=== PATIENT | female | born 1945 | race Caucasian/White ===

== ENCOUNTER 2024-12-19 11:09 | Outpatient (AMB) | payer OTHER, SELFPAY ==
--- NOTE | 2024-12-19 11:22 | A.OFFPC_ITS ---
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 Intake Note: patient here for new patient visit Millinery Blocker Required: No Is last menstrual period known: No Post menopausal: No Patient : No Allergies No Known Allergies Allergy (Verified 12/19/24 11:45) Medication List - Last Reconciled 12/19/24 by Josue Mckeon CNP aspirin (Adult Low Dose Aspirin) 81 mg PO DAILY azelastine-fluticasone 137-50 mcg/spray intranasal fluocinonide 0.05% appl topical DAILY naproxen sodium (Aleve) 220 mg PO Q12H PRN Tobacco use date assessed: 12/19/24 Fall risk assessment: 1 Fall in past year Last assessed Fall Risk: 12/19/24 Dental Screening Dental Screen Date: 12/19/24 Did you have a dental visit in the last 12 months?: Yes Did you have a dental problem in the last 6 months where you did not have access to dental care?: No Was dental information given to patient?: Patient has dentist HPI HPI Comments History of Present Illness Details 79-year-old female presents to establish care. Prior PCP? - [facility] Last office visit - 06/2024 CPE/labs - A year ago Acute issue(s) - Arthritis both knees. She is on Naprox en 220 mg twice daily as needed - Chronic low back pain: She is on Napro xen 220 mg twice daily as needed. Was followed by Dr. Ochoa, neuro wellness specialist Past Medical History - Arthritis - Eczema - Sinusitis - Astigmatism Surgical History - Carpal tunnel surgery of right wrist - Carpal tunnel surgery of left wrist - Lateral meniscus repair of right knee - Lateral meniscus repair of left knee - section Family History - Dad: Multiple myeloma - Mom: Cardiovascular disease, hypertens ion - MGM: Mental illness, committed suicide - PGF: Alcohol use disorder Social History - Nonsmoker. Does not vape. Does not dri nk alcohol. Denies recreational drug use - Has been making healthy dietary choice s. Exercises routinely. Generally sleep well Health maintenance - Last eye exam was in 06/2024 at [facility]: normal. She will establish with a new driveway attendant for routine eye care - Last dental visit was over 2 weeks ago . She has full upper denture and bottom implants - Last tetanus vaccine was in 10/2019. O ld medical record not available at this time - She is up-to-date on the flu, pneumoni a, and shingle vaccines. Old medical record not available at this time - She has history of normal pap smear te sts. Last pap smear test was in 2017. She no longer performs pap smear tests - Last mammogram was with [facility] in 11/2024: normal. She will sign a release for her PCP to obtain recent mammogram - Last colonoscopy was with Alex Dawson in 07/01/2021: Benign polyps. She will sign a release for her PCP to obtain recent colonoscopy - Last dexa scan was in 2019: normal. De xa scan ordered [facility] Medical History (Updated 12/19/24 @ 12:21 by Josue Mckeon CNP) Eczema Arthritis Sinusitis Surgical History (Updated 12/19/24 @ 11:45 by Umm Castellanos MA) History of carpal tunnel surgery of right wrist History of carpal tunnel surgery of left wrist H/O lateral meniscus repair of right knee H/O lateral meniscus repair of left knee H/O: Family History (Updated 12/19/24 @ 11:33 by Umm Castellanos MA) Paternal Grandfather Alcohol abuse Paternal Grandmother FH: mental illness Mother High blood pressure Cardiovascular disease Family/Other No problems noted. Father Multiple myeloma Sister Cancer Social History Housing: House Patient Tobacco Use Status: Never used Tobacco e-Cigarette/Vaping Use: Never Used Second Hand Smoke Exposure: No service: No Current occupational status: retired Cognitive needs: No Hearing needs: No Vision needs: Yes Questionnaire PHQ-9 Over the last 2 weeks, how often have you been bothered by any of the following problems? 1. Little interest or pleasure in doing things: not at all 2. Feeling down, depressed, or hopeless: not at all 3. Trouble falling or staying asleep, or sleeping too much: not at all 4. Feeling tired or having little energy: not at all 5. Poor appetite or overeating: not at all 6. Feeling bad about yourself - or that you are a failure or have let yourself or your family down: not at all 7. Trouble concentrating on things, such as reading the newspaper or watching television: not at all 8. Moving or speaking so slowly that other people could have noticed. Or the opposite - being so fidgety or restless that you have been moving around a lot more than usual: not at all 9. Thoughts that you would be better off or of hurting yourself in some way: not at all Total score: 0 Depression Screening Interpretation: Negative Depression Screening Done: Yes [id number] - PHQ-9 Billing: Yes Source: Developed by Drs. Bucky Adler, Shu Henderson, Checo Egan and colleagues, with an educational khanh from [employer]. Thrive Questionnaire Date Thrive assessed: 12/19/24 I am a: Patient What is your living situation today?: I have a steady place to live Within the past 12 months, did the food you bought not last and you didn't have the money to get more?: Never true Within the past 12 months, did you worry whether your food would run out before you got money to buy more?: Never true Do you have trouble paying for medicines?: No Do you have trouble getting transportation to medical appointments?: No Do you have trouble paying your heating and electricity bill?: No Do you have trouble taking care of your child, family member or friend?: No Do you have trouble with day-to-day activities such as bathing, preparing meals, shopping, managing finances, etc.?: No Are you currently unemployed and looking for a job?: No Are you interested in more education?: No Please select the resources that you would like help with: None Currently or been in a relationship where the following occur: No concerns reported THRIVE Score: 0 AUDIT C Alcohol Use Questionnaire (AUDIT-C) 1. How often do you have a drink containing alcohol?: Never Total Score: 0 LANDON-7 AMB Questionnaire LANDON-7 Date LANDON - 7 assessed: 12/19/24 Feeling nervous, anxious, or on edge: 0 = Not at all Not being able to stop or control worryin = Not at all Worrying too much about different things: 0 = Not at all Trouble relaxin = Not at all Being so restless that it is hard to sit still: 0 = Not at all Becoming easily annoyed or irritable: 0 = Not at all Feeling afraid as if something awful might happen: 0 = Not at all Total LANDON-7 score (0-4 normal; 5-9 mild; 10-14 moderate; 15-21 severe): 0 Source: Developed by Drs. Bucky Adler, Shu Henderson, Checo Egan and colleagues, with an educational khanh from [employer]. LANDON-7 Assessment Billing LANDON-7 Assessment Tool: LANDON-7 Assessment 62699 Review of Systems Const Details: Denies chills, Denies fatigue, Denies fever(s), Denies headache(s) and Denies weakness HEENT Denies change in vision, Denies dizziness, Denies headache(s), Denies hearing loss, Denies nasal congestion, Denies sinus pain, Denies sinus pressure and Denies sore throat Card Denies chest pain, Denies lightheadedness, Denies dyspnea and Denies other (palpitations) Resp Denies cough, Denies dyspnea and Denies wheezing GI Denies abdominal pain, Denies melena, Denies hematochezia, Denies change in bowel habits, Denies dyspepsia and Denies nausea Denies hematuria and Denies dysuria Musc Reports bilat knee pain and back pain, Denies abnormal gait, Denies numbness and Denies tingling Skin/Breast Denies rash, Denies unusual bruising and Denies wounds Neuro Denies abnormal gait, Denies dizziness, Denies headache(s), Denies memory loss, Denies numbness, Denies Sensory deficit (Neuro), Denies tingling and Denies weakness Psych Denies anxiety, Denies depression and Denies memory loss Endo Denies cold intolerance, Denies fatigue, Denies heat intolerance, Denies polydipsia and Denies polyuria Antonio/Lymph Denies easy bleeding and Denies easy bruising Aller/Immun Denies wheezing Physical exam (Primary Care) Vital Signs: Last Vital Signs Temp 97.7 F 12/19/24 11:35 Pulse 66 12/19/24 11:35 Resp 16 12/19/24 11:35 BP 142/63 H 12/19/24 11:35 Pulse Ox 96 12/19/24 11:35 Oxygen Delivery Method Room Air 12/19/24 11:35 BMI result Body Mass Index 25.5 Tobacco/Smoking Status: Tobacco use Status Tobacco use date assessed 12/19/24 12/19/24 11:34 Patient Tobacco Use Status Never used Tobacco 12/19/24 11:34 e-Cigarette/Vaping Use Never Used 12/19/24 11:34 PHQ-9: PHQ-9 Score PHQ-9: Total score 0 12/19/24 11:34 Depression Screening Interpretation: Negative Thrive Assessment: Date of Thrive Assessment Date Thrive assessed 12/19/24 12/19/24 11:34 Currently or been in a relationship where the following occur: No concerns reported Const Other: General: no acute distress, well developed, alert and awake Nutritional Appearance: well nourished Orientation/consciousness: patient oriented x3 HENMT Head: Yes normocephalic and Yes atraumatic Ears: hearing grossly normal bilaterally and TM's normal bilaterally General nose exam: Normal external nose present and Normal nares present Mouth: Normal oral and palatal mucosa present and moist mucous membranes Teeth and gingiva: dentition normal Throat: Yes oropharynx normal Eyes Pupils: Equal, round and reactive pupils present and Pupil accommodation reflex normal EOM: EOMs intact bilaterally Neck Neck: Yes normal visual inspection, Yes no lymphadenopathy and Yes trachea midline Thyroid: Thyroid normal Carotids: no bruits Lymphatic: no lymphadenopathy noted Chest Chest palpation & inspection: normal inspection of the chest Resp Effort & Inspection: normal respiratory effort Auscultation: clear to auscultation bilaterally Cardio Rate: regular rate Rhythm: regular rhythm Heart sounds: S1 normal heart sound present, S2 normal heart sound present, no gallops, no murmurs and no rubs Bruits: no abdominal aortic bruits and no carotid bruits GI Palpation (GI): No Abdominal aortic bruit present, Soft to palpation, nontender, No hepatosplenomegaly present and No Rebound tenderness present Auscultation: normal bowel sounds General: Yes no CVA tenderness Back/Spine/Pelvis Back: no CVA tenderness Cervical Spine: cervical ROM normal and No Cervical spine tenderness Thoracic/Lumbar Spine: thoraco-lumbar ROM normal, No pain with thoraco-lumbar ROM, No thoracic spinal tenderness and No lumbar spinal tenderness Skin General: warm and dry. Normal skin color. Normal skin turgor Lesions: no lesions Rashes: no rashes Trauma: no lacerations or abrasions Wounds: no wounds Nails: normal Neuro General: patient oriented x3, gait normal and CN's II-XI intact bilaterally Cranial nerves: Yes Equal, round and reactive pupils present Cognition (Neuro): normal cognition Gait exam (Neuro): Normal gait present Motor exam (neuro): 5/5 motor strength present throughout Sensory Exam: No Sensory deficit (Neuro) Deep tendon reflexes (DTR's): Right patellar reflex intensity grade: 2+ and Left patellar reflex intensity grade: 2+ Extrem General: Yes normal to inspection, No edema and No calf tenderness Psych Appearance: grossly normal Affect: normal affect Attitude: cooperative Thought process: Normal thought process present Coding Level of Care Code New Pt Prev Care >65yr (73654) Diagnoses Normal physical examination, routine Z00.00 Arthritis of both knees M17.0 Chronic low back pain M54.50; G89.29 Osteoporosis screening Z13.820 Laboratory tests ordered as part of a complete physical exam (CPE) Z00.00 Additional Codes LANDON-7 Assessment Billing - LADNON-7 Assessment Tool: LANDON-7 Assessment 85410 ([id number]) PHQ-9 - 39413 - PHQ-9 Billing: Yes ([id number]) Assessment & Plan Assessment & Plan (1) Normal physical examination, routine: Code(s): Z00.00 - Encounter for general adult medical examination without abnormal findings Category: Medical Plan: No significant functional limitations noted. Blood pressure is on the high end of normal, 138/60. Low-sodium diet encouraged. Perform lab work at least 2-3 days before next visit. Follow-up in 2-3 weeks for telehealth visit for labs review or sooner with symptoms or concerns. Verbalized understanding and agreed with treatment plan. (2) Arthritis of both knees: Code(s): M17.0 - Bilateral primary osteoarthritis of knee Category: Medical Plan: She is naproxen as needed. Warm/cool compresses encouraged. Follow-up with worsening or new symptoms. Verbalized understanding and agreed with treatment plan. (3) Chronic low back pain: Code(s): M54.50 - Low back pain, unspecified; G89.29 - Other chronic pain Category: Medical Plan: Plan as above. (4) Osteoporosis screening: Code(s): Z13.820 - Encounter for screening for osteoporosis Category: Medical Plan: Last dexa scan was in 2020: normal. Dexa scan ordered. (5) Laboratory tests ordered as part of a complete physical exam (CPE): Code(s): Z00.00 - Encounter for general adult medical examination without abnormal findings Category: Medical Plan: Fasting labs ordered as part of a complete physical exam. Advised to fast for at least 10 hours before getting labs drawn. May drink water Verbalized understanding and agreed with treatment plan. Orders: Orders XR DEXA axial skeleton Today M81.0 - Age-related osteoporosis without current pathological fracture Complete Blood Count Auto Diff Today Z00.00 - Encounter for general adult medical examination without abnormal findings Comprehensive [place]. Panel Fast Today Z00.00 - Encounter for general adult medical examination without abnormal findings Microalbumin, Random (w Creat) Today Z00.00 - Encounter for general adult me dical examination without abnormal findings Vitamin D 25-OH Total Today Z00.00 - Encounter for general adult medical examination without abnormal findings Lipid Panel Today Z00.00 - Encounter for general adult medical examination without abnormal findings TSH reflex Free T4 Today Z00.00 - Encounter for general adult medical examination without abnormal findings UA CC w/rflx Micro + Cult Today Z00.00 - Encounter for general adult medical examination without abnormal findings
[2024-12-19 11:35] VITALS: BP 142/63; PULSE 66; RESP 16; TEMP 36.5; O2SAT 96; BMI 25.5
[2024-12-19 12:08] VITALS: BP 138/60
--- OUTSIDE RECORDS SUMMARY | 2024-12-19 12:56 | XMS_ITS ---
Author Name [facility] Organization Unknown History of Medication Use Medication Directions Dispensed Refills Start Date End Date Stat amoxicillin 875 mg-potassium clavulanate 125 mg tablet TAKE 1 TABLET BY MOUTH TWICE A DAY FOR 7 DAYS 11/13/2024 completed chlorhexidine gluconate 0.12 % mouthwash PLEASE SEE ATTACHED FOR DETAILED DIRECTIONS active ketotifen 0.025 % (0.035 %) eye drops INSTILL 1 DROP INTO AFFECTED EYE TWICE A DAY active lidocaine (PF) 100 mg/5 mL (2 %) injection syringe Take 4 mL by injection route. 11/13/2024 active ofloxacin 0.3 % eye drops INSTILL 1 DROP INTO AFFECTED EYE(S) 4 TIMES A DAY active Marcaine (PF) 0.5 % (5 mg/mL) injection solution Take 4 mL by injection route. 11/13/2024 active triamcinolone acetonide 40 mg/mL suspension for injection Take 40 mg by injection route. 11/13/2024 active azelastine 137 mcg-fluticasone 50 mcg/spray nasal spray USE 1 SPRAY IN EACH NOSTRIL TWICE A DAY active amoxicillin 875 mg tablet TAKE 1 TABLET BY MOUTH TWICE A DAY DIRECTED UNTIL FINISHED START 1 DAY BEFORE SURGERY 11/13/2024 completed ondansetron HCl 4 mg tablet TAKE 1 TABLET BY MOUTH EVERY 8 HOURS active lidocaine (PF) 10 mg/mL (1 %) injection solution Take 2 mL by injection route. 05/15/2023 active Problems Problem Status Onset Date Problem Type Date of Resoluti on Source Osteoarthritis of left knee joint active 2023-05-15 ProblemAct [facility] Osteoarthritis of right knee joint active 2023-05-15 ProblemAct [facility]
--- OUTSIDE RECORDS SUMMARY | 2024-12-19 12:56 | XMS_ITS | Continuity of Care Document ---
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 Medication Details Route Status Patient Instructions Prescription Expires Prescription Number Last Dispense Date Ordering Provider Order Date Order Qty Source OFLOXACIN (OFLOXACIN) , 0.3%, DROPS, OPHTHALMIC, APOTEX REMA, 10 ml BOTTLE Active [id number] 2023 10 Pharmac y Data Transac tion Service Facilit y VALACYCLOVI R (valacyclov ir HCl), 1000 MG, TABLET, ORAL, [employer] 90 ea. BOTTLE Active [id number] 2023 90 Pharmac y Data Transac tion Service Facilit y Immunizations Combined list of available immunizations from the Department of Defense and Veterans Affairs facilities. Immunization Series Date Given Administered By Site Reaction Lot Number CVX Code Drug Retort Feeder Ground Bone Status Comments Source Influenza, seasonal, injectable 2014 Belkis TILLEY () Not Given Influenza , seasonal, injectabl e DoD Social History Combined list of available smoking, tobacco, and other social history from Department of Defense and Veterans Affairs facilities. Social History Type Response Date Comment Sourc e This section is an empty social history section. DoD
--- OUTSIDE RECORDS SUMMARY | 2024-12-19 12:56 | XMS_ITS | Clinical Summary ---
Author Organization [facility] Address [address] [place] [id number] Care Team Providers Care Steel Analyst Name Role Phone Kaleigh Freed MD Primary Care Provider [phone] Allergies No known active allergies Medications Medication Sig Dispensed Refills Start Date End Date Status aspirin (ASPIR-81) 81 MG EC tablet Take 81 mg by mouth. 0 Active naproxen (NAPROSYN) 250 MG tablet Take 1 tablet by mouth. 0 Active alclomethasone (ACLOVATE) 0.05 % cream 0 08/27/2020 Active Calcium Carbonate-Vit D-Min (Caltrate 600+D Plus Minerals) 600-800 MG-UNIT TABS Take 1 tablet by mouth daily. 0 Active Multiple Vitamins-Minerals (Multivitamin & Mineral) LIQD Take 15 mL by mouth. 0 Active [id number]-[id number]-NaSulf-N a Asc-C (Plenvu) 140 g SOLR 0 02/23/2021 Active Plenvu 140 g SOLR 0 02/23/2021 Active valACYclovir (VALTREX) 1000 MG tablet 0 08/27/2020 Active predniSONE (DELTASONE) tablet 20 mg Take 3 tabs for 3 days then take 2 tabs for 3 days then take 1 tab for 3 days 18 tablet 0 08/26/2021 Active Active Problems Problem Noted Date Diagnosed Date Arthritis of knee, right 11/10/2021 Postoperative follow-up 10/11/2018 Acute lateral meniscus tear of right knee 2017 Right knee injury 08/08/2018 Family History Medical History Relation Name Comments Cancer Father Heart disease Mother Hypertension Mother Cancer Sister Relation Name Status Comments Father Mother Sister Social History Tobacco Use Types Packs/Day Years Used Date Smoking Tobacco: Never Smokeless Tobacco: Never Sex and Gender Information Value Date Recorded Sex Assigned at Female 02/22/2021 1:43 PM EDT Gender Identity Female 02/22/2021 1:43 PM EDT Sexual Orientation Not on file Job Start Date Occupation Industry Not on file Not on file Not on file Last Filed Vital Signs Vital Sign Reading Time Taken Comments Blood Pressure - - Pulse - - Temperature 36.7 ??C (98.1 ??F) 05/26/2021 10:55 AM E DT Respiratory Rate - - Oxygen Saturation - - Inhaled Oxygen Concentration - - Weight 69.9 kg (154 lb) 06/16/2021 11:17 AM EDT Height 162.6 cm (5' 4 ) 06/16/2021 11:17 AM EDT Body Mass Index 26.43 06/16/2021 11:17 AM EDT Plan of Treatment Health Maintenance Due Date Last Done Comments Hepatitis C Screening 1945 Depression Screening 1958 Preventative Health Evaluation 1964 DTap / Tdap / Td (1 - Tdap) 1965 Fall Risk Assessment 2011 Osteoporosis Screening (DEXA Scan) 2011 RSV Adult > 60+ Yrs or (1 - 1-dose 75+ series) 2021 COVID-19 Vaccine (2023-2 5 season) 2024 12/14/2020, 11/23/2020 Influenza Vaccine (#1) 2024 06/15/2020 Pneumococcal Vaccine Completed 10/18/2016, 03/17/2016, 09/25/2015 Shingrix-Zoster Vaccine Completed 01/03/20 19, 07/12/2018 Hepatitis B Vaccines Aged Out No long er eligible based on patient's age to complete this topic RSV Ped < 20 months Aged Out No longe r eligible based on patient's age to complete this topic Care Teams Steel Analyst Relationship Specialty Start Date End Date Kaleigh Freed MD [address] [place] [phone] PCP - General Internal Medicine 07/29/18
== END 2024-12-19 12:19 | disposition home or self-care (01) ==
PROVIDERS: PCP Nurse Practitioner Family; Visit Provider Nurse Practitioner Family
DX: Z00.00 Encounter for general adult medical examination without abnormal findings (principal); M17.0 Bilateral primary osteoarthritis of knee; M54.50 Low back pain, unspecified; G89.29 Other chronic pain; Z13.820 Encounter for screening for osteoporosis

== ENCOUNTER → 2024-12-19 11:09 | Outpatient (BNVA) | payer OTHER, SELFPAY | PROVIDERS: PCP Nurse Practitioner Family; Visit Provider Nurse Practitioner Family | DX: Z00.00 Encounter for general adult medical examination without abnormal findings (principal); M17.0 Bilateral primary osteoarthritis of knee; M54.50 Low back pain, unspecified; G89.29 Other chronic pain | CPT/HCPCS: 96127 ==

== ENCOUNTER 2024-12-26 08:38 | Outpatient (REF) | payer MEDICARE, OTHER, SELFPAY ==
--- OUTSIDE RECORDS SUMMARY | 2024-12-26 08:56 | XMS_ITS | Data Portability ---
Author Organization [place] [facility] Augusto Marrero AONE [place] Address [address] [facility] [address] [place] [address] Assessment Encounter Date Assessment Date Assessment LastModified by Organization Details LastModified Time 05/15/2023 05/15/2023 78-year-old female twisting injury with notable degenerative arthritis of the right knee. Since the initial twisting injury a week ago she notes 60% improvement however she is going away to [place] in a week for which she wants a cortisone injection. This was carried out after verbal consent was granted by patient. She tolerated the procedure well. Aftercare instructions were discussed in detail. Follow-up visit 8 weeks for reevaluation. Should her symptoms not improve or worsen she should contact my office. She agrees with the above-noted plan. Indirect care and treatment in conjunction with Dr. Sarmiento Additional treatment plan discussed with the patient in detail included the following; - Provider focused nonsteroidal anti-inflammator y regimen (discussed were the pros, cons, benefits and risks as well as any black box warnings) in patients over 60 years old they should be very cautious in taking these medications due to potential decreased kidney function and or elevated blood pressure. - Analgesic pain medication for pain suppression (discussed were the pros, cons, benefits and risks as well as any black box warnings) - The use of topical pain relieving medication were discussed - The use of ice to decrease inflammation and pain - The use of assistive ambulatory devices for ambulation and fall prevention - Formal specific guided physical therapy program I reviewed my findings at length with the patient today. ? ? ?We discussed the nature and etiology of this problem along with current treatment options. We discussed the expected course and outcomes and what to expect. We also discussed risks and benefits. ? ? ? All of their questions were answered today, and there was exhibited understanding and comprehension of all that was discussed. Time Spent: 10 minutes were spent reviewing previous imaging and charting. ? ? ?10 minutes were spent obtaining patient history. ? ? ?5 minutes were spent on physical exam. ? ? ?5? ? ?minutes were spent explaining diagnosis and assessment. Today's documentation was made using voice recognition software. This note may contain grammatical errors secondary to the software. Not available 05/15/2023 13:51:20 11/13/2024 11/13/2024 79-year-old female with right knee pain. History, examination and x-rays are consistent with osteoarthritis. After discussion regarding treatment options she wishes to proceed with cortisone injection of the right knee today. Follow-up with me in 3 or 4 months. This patient was seen and evaluated by Ijeoma Jin MS, EULALIA in indirect conjunction with documenting/supe rvising provider Sampson Sarmiento MD. He agrees with history, physical examination, tests/diagnostic imaging, and treatment plan. This document was generated using voice recognition software. As a result, there may be unintended spelling, grammatical and/or textual errors. Not available 11/13/2024 11:29:41 Plan of Treatment Reminders Order Date Submit Date Provider Last Modified By Organization Details Last Modified Time Details Appointments FOLLOW UP 2024 10:45A M IJEOMA JIN PA-C Not available Not available Not available Lab None recorded. Referral None recorded. Procedures None recorded. Surgeries None recorded. Imaging XR, knee, 4 or more view 2024 025 [email or web address] [facility], [address], [place], [address], 11/13/2024 11:27:11 XR, knee, 4 or more view 2022 023 [facility], [address], [place], [address], 05/15/2023 15:02:12 Medication Orders Marcaine (PF) 0.5 % (5 mg/mL) injection solution 2024 025 [email or web address] [id number], [address] [place], [address], 11/13/2024 11:27:11 lidocaine (PF) 100 mg/5 mL (2 %) injection syringe [id number], [address] [place], [address], 11/13/2024 11:27:11 triamcino lone acetonide 40 mg/mL suspensio n for injection [address]/[id number], [address] [place], [address], 11/13/2024 11:27:11 Kenalog 40 mg/mL suspensio n for injection 2022 023 [email or web address] [id number], [address] [place], [address], 11/13/2024 11:06:53 lidocaine (PF) 10 mg/mL (1 %) injection solution 2022 023 [email or web address] [id number], [address] [place], [address], 11/13/2024 11:06:56 Patient TargetsNo targets recorded. Patient Instructions Encounter Date Encounter Id Patient Instructions Last Modified By Organization Details Last Modified Time 05/15/2023 You have been provided with a cortisone injection in order to reduce the pain and inflammation that you are experiencing. The injection consists of two medications. Cortisone (an anti-inflammatory that will take 48-72 hours to take effect) and Lidocaine (a numbing agent that will last 2-3 hours). Please note that not everyone will have a lasting response following the injection. PATIENT INSTRUCTIONS Once the Lidocaine wears off, you may have an increase in your pain. I recommend icing the affected area for 20 minutes 3-4 times per day. It is recommended that you refrain from any high level activities using the joint or limb that was injected for approximately 24-48 hours. Normal day-to-day activities are generally not a problem. POSSIBLE SIDE EFFECTS Individuals with dark complexions may experience some skin discoloration locally at the site of the injection. There is the possibility of an increase in discomfort within 48 hours following the injection. This is called a ? f lare? . To help minimize the chances of this, please see the post-injection instructions above. There is a less than 1% chance of an infection. If you notice any signs of infection (redness, warmth, drainage, fever greater than 100 degrees) please call our office or contact us through the portal [email or web address]. Not available 05/15/2023 12:36:14 X-ray 4 view rig ht knee reveals moderate degenerative disease predominantly in the patellofemoral compartment Not available 05/15/2023 13:51:53 11/13/2024 [id number] {{2 3 4 5 6 7* 8 9 }} view X-ray study obtained during today's office encounter show {{no}} evidence of {{mild moderate* s evere}} {{right* left bila teral}} {{hip knee*}} and severe left knee osteoarthritis. There is joint space narrowing, subchondral sclerosis and marginal osteophytosis. Kellgren-Akbar grade {{0 1 2* 3 4}}on the right and 3 on the left. No evidence of acute fracture or osteolytic findings. Not available 11/13/2024 11:30:34 Reason for Referral None Reported. Problems Name Problem SNOMED Code Status Onset Date Resolution Date Notes Provider Name and Address Organization Details Recorded Time Osteoarthri tis of right knee joint 6925154881190 00 Active 2022 IJEOMA HARRIS PA-C [address] [facility],[address], [facility] [place], [address], [place] [facility], P 3 12:36:03 Osteoarthri tis of left knee joint 8619593500417 09 Active 2022 IJEOMA HARRIS PA-C [address] [facility],[address], [facility] [place], [address], [place] [facility], P 3 12:36:07 Problem Notes None recorded. Procedures Surgical History Date Name Laterality Status Provider Name and Address Organization Details Recorded Time 5 MJG Knee injection w/US completed IJEOMA JIN PA-C [address] [facility] [address], [place], [address], [place] [facility], P 11/13/2024 11:29:16 3 Knee Joint/Bursa Asp & Inj completed IJEOMA HARRIS PA-C [address] [facility] [address], [place], [address], [place] [facility], P 05/15/2023 12:33:43 Imaging Results None recorded. Procedure Notes None recorded. Medical Equipment None Reported. Allergies No known drug allergies Medications Name Sig Start Date Stop Date Status Note LastModified by Organization Details LastModified Time ofloxacin 0.3 % eye drops INSTILL 1 DROP INTO AFFECTED EYE(S) 4 TIMES A DAY active Not Available Not Available No t Available ketotifen 0.025 % (0.035 %) eye drops INSTILL 1 DROP INTO AFFECTED EYE TWICE A DAY active Not Available Not Available No t Available valacyclovi r 1 gram tablet active Not Available Not Available Not Available ondansetron HCl 4 mg tablet TAKE 1 TABLET BY MOUTH EVERY 8 HOURS 05/15 completed Not Available Not Available Not Available amoxicillin 875 mg tablet TAKE 1 TABLET BY MOUTH TWICE A DAY DIRECTED UNTIL FINISHED START 1 DAY BEFORE SURGERY 11/13 completed Not Available Not Available Not Available triamcinolo ne acetonide 40 mg/mL suspension for injection Take 40 mg by injection route. 2024 active Not Available Not Available Not Avai labclarence fluocinonid e 0.05 % topical cream APPLY TO AFFECTED AREA ON HAND 2-3 TIMES A DAY NEEDED FOR ECZEMA active Not Available Not Available No t Available betamethaso ne dipropionat e 0.05 % topical ointment 04/15 completed Not Available Not Available Not Available amoxicillin 875 mg-potassiu m clavulanate 125 mg tablet TAKE 1 TABLET BY MOUTH TWICE A DAY FOR 7 DAYS 11/13 completed Not Available Not Available Not Available nabumetone 500 mg tablet PLEASE SEE ATTACHED FOR DETAILED DIRECTION S active Not Available Not Available No t Available oxycodone 5 mg tablet TAKE 1 TO 2 TABLETS BY MOUTH EVERY 4 TO 6 HOURS NEEDED FOR PAIN 05/15 completed Not Available Not Available Not Available Marcaine (PF) 0.5 % (5 mg/mL) injection solution Take 4 mL by injection route. 2024 active Not Available Not Available Not Avai lable chlorhexidi ne gluconate 0.12 % mouthwash PLEASE SEE ATTACHED FOR DETAILED DIRECTION S active Not Available Not Available No t Available lidocaine (PF) 10 mg/mL (1 %) injection solution Take 2 mL by injection route. 11/13 completed Not Available Not Available Not Available lidocaine (PF) 100 mg/5 mL (2 %) injection syringe Take 4 mL by injection route. 2024 active Not Available Not Available Not Avai lable azelastine 137 mcg-flutica sone 50 mcg/spray nasal spray USE 1 SPRAY IN EACH NOSTRIL TWICE A DAY active Not Available Not Available No t Available Vitals Date Recorded Body height Body mass index (BMI) Body weight Provider Name and Address Organization Details Last Updated DateTime 11/13/2024 165.1 cm 23.1 kg/m2 88133.34 g Jennifer Maldonado [facility] 11/13/2024 11:07:30 Date Recorded Body height Body mass index (BMI) Body weight Provider Name and Address Organization Details Last Updated DateTime 05/15/2023 165.1 cm 23.1 kg/m2 75245.34 g Keli Carmona [facility], 05/15/2023 15:51:48 Social History Question Answer Notes LastModified by Organizat ion Details LastModified Time Tobacco Smoking Status Never Smoker Keli Carmona [facility], [facility] 05/15/2023 16:02:40 What Is Your Level Of Alcohol Consumption? None Information not available 05/15/2023 Do You Use Any Illicit Or Recreational Drugs? No Information not available 05/15/2023 Do You Or Have You Ever Used Any Other Forms Of Tobacco Or Nicotine? No Information not available 05/15/2023 Sex: Unknown Functional Status None recorded. Mental Status None recorded. Family History Relationship Description Onset Age of this Age Resolved Age Notes LastModified by Organization Details LastModified Time Father Family history of malignant neoplasm Not available 2022 16:01:54 Sister Family history of malignant neoplasm Not available 2022 16:01:54 Mother Heart disease Not available 2022 16:02:10 Mother Hypertensive disorder Not available 2022 16:02:21 Medical History Condition Response Coronary Artery Disease N Gout N Hyperthyroidism N MRSA N Blood Transfusion N Emphysema N Depression N COPD N Hypothyroidism N Pacemaker N Vascular Disease N Gastrointestinal Disease N Anxiety Disorder N Autoimmune disease N Arthritis Y Cancer N Stroke N High Cholesterol N Neurologic Disorder N Liver Disease N Organ Transplant N Rheumatoid Arthritis N Arrhythmia N Fibromyalgia N Kidney Disease N Allergies/Hayfever Y Adverse Reaction to Anesthesia N Thyroid Problems N Anemia N Brain Injury N Heart Attack (OK) N Osteopenia N Diabetes N Bleeding Disorder N Seizures/Epilepsy N AIDS/HIV N Congestive Heart Failure (CHF) N Asthma N Amputation N Reflux/GERD N Sleep Apnea N Hepatitis N Aneurysm N Heart Disease N Pulmonary Embolism N Hypertension N Osteoporosis N Gynecological HistoryNo gynecological history recorded. Obstetrics History GPAL:G 0 P 0 0 0 0 Past Encounters Encounter ID Performer Location Encounter Start Date Encounter Closed Date Diagnosis/Indication Diagnosis SNOMED-CT Code Diagnosis ICD10 Code Diagnosis Note [id number] MD ANGELICA Rome [facility] [address] [address] 05/15/2023 13:07:34 05/15/2023 13:51:24 Pain of right knee joint 6633789069 38817 M25.561 Osteoarthr itis of right knee joint 0174624898 48455 M17.11 [id number] MD ANGELICA Rome [facility] [address] [address] 11/13/2024 10:49:28 11/13/2024 11:26:25 Osteoarthritis of right knee joint 3994233924 44228 M17.11 Health Concerns Section Related Observation LastModified by Organization Detai ls LastModified Time None Recorded Concern Status LastModified by Organization Details LastModified Time None Recorded Advance Directives Directive None Recorded Payers Encounter Date Sequence Insurance Name Policy Number Policy Montano Covered Member ID Montano Member ID Guarantor Name 05/15/2023 2 FOR LIFE () Roberta Fitzpatrick [id number] Roberta Fitzpatrick 05/15/2023 1 MEDICARE B-[place]: [facility] Roberta Fitzpatrick [id number] Roberta Fitzpatrick 11/13/2024 2 FOR LIFE () Roberta Fitzpatrick [id number] Roberta Fitzpatrick 11/13/2024 1 MEDICARE B-[place]: [facility] Roberta Fitzpatrick [id number] Roberta Fitzpatrick Notes Date Note Type Note Provider Name and Address Organization Details Recorded Time 05/15/2023 text/html BL knees. cortis one 10/28/21last x-rays 2 view right knee 10/28/2021 with mild to moderate degenerative joint disease and chondrocalcinosis without acute bony abnormality. Patient states she had updated x-rays at [facility] recently ordered by her primary care however she did not bring her disc or report with her. HPI:Pleasant 78-year-old female last seen on the above-noted date for which she had cortisone injections in both knees due to arthralgia secondary to osteoarthritis. She states however she may have twisted her right knee approximately a week ago her PCP put her on nabumetone for which she has had 60% improvement. She does not have any left knee symptoms. Pain is medial nature gets worse with walking and bending. She denies fevers chills flulike symptoms denies warmth overlying the knee joints. IJEOMA HARRIS PA-C [address] [facility],[address] [facility], [place], [address], [place] [facility] P 05/15/2023 13:52:59 11/13/2024 text/html 79-year-old fema le presents with chief complaint of right knee pain. She reports that a cortisone injection done in May 2023 was effective at giving her excellent relief of pain lasting up until very recently. She requests repeat cortisone injection to the right knee today. She reports mild left knee symptoms as well. She reports no new change in character, quality or location of her symptoms and there has been no new injury, accident or trauma. IJEOMA JIN PA-C [address], [place], [address], [place] [facility], P 11/13/2024 11:31:05 OBGyn Episode No OBEpisode recorded.
--- OUTSIDE RECORDS SUMMARY | 2024-12-26 08:56 | XMS_ITS | Clinical Summary ---
Author Organization [facility] Address [address] [place] [id number] Care Team Providers Care General Accounting Manager Name Role Phone Kaleigh Freed MD Primary Care Provider [phone] Allergies No known active allergies Medications Medication [...] Take 15 mL by mouth. 0 Active [id number]-[id number]-[id number]-NaSulf-N a Asc-C (Plenvu) 140 g SOLR 0 [...] age to complete this topic Care Teams General Accounting Manager Relationship Specialty Start Date End Date Kaleigh Freed MD [address] [place] [phone] PCP - General Internal Medicine 07/29/18
[2024-12-26 09:06] LABS: MANUAL DIFF FLAG NO
[2024-12-26 09:38] LABS: Basophils Absolute Auto 0.1 X10*3/uL (0.0-0.2); Eosinophils Absolute Auto 0.4 X10*3/uL (0.0-0.4); Eosinophils Percent Auto 4.7 % (0-4); Hematocrit 43.4 % (37.0-47.0); Hemoglobin 14.4 g/dl (12.0-16.0); Imm Gran Abs Auto 0.05 X10*3/uL (0.00-0.03); Imm Gran Pct Auto 0.6 % (0.0-0.4); Lymphocytes Absolute Auto 1.2 X10*3/uL (1.2-4.9); Lymphocytes Percent Auto 15.9 % (20-40); Mean Corpuscular HGB Conc 33.2 g/dl (31.0-35.0); Mean Corpuscular Hemoglobin 27.6 pg (27.0-33.0); Mean Corpuscular Volume 83.1 fL (80.0-98.0); Mean Platelet Volume 10.6 fL (9.4-12.3); Monocytes Absolute Auto 0.5 X10*3/uL (0.1-1.2); Monocytes Percent Auto 6.1 % (2-11); Neutrophils Absolute Auto 5.5 x10*3/uL (2.0-8.3); Neutrophils Percent Auto 71.7 % (45-73); Platelet Count 479 X10*3/uL (160-400); Red Blood Count 5.22 X10*6/uL (4.20-5.50); Red Cell Distribution Width 15.1 % (11.0-16.0); White Blood Count 7.7 X10*3/uL (4.8-10.8)
[2024-12-26 10:29] LABS: Alanine Aminotransferase 24 U/L (0-31); Albumin Level 4.1 g/dL (3.5-5.0); Alkaline Phosphatase 84 U/L (39-117); Anion Gap 10 (12-20); Aspartate Amino Transferase 31 U/L (5-31); Bilirubin Total 0.6 mg/dL (0.0-1.0); Blood Urea Nitrogen 16 mg/dL (9-16); Calcium 9.3 mg/dL (8.4-10.2); Carbon Dioxide 26 mmol/L (22-29); Chloride 109 mmol/L (96-108); Cholesterol 228 mg/dL (<200); Estimated Glomerular Filt Rate > 60; Glucose Fasting 86 mg/dL (60-99); HDL Cholesterol 62 mg/dL (>40); LDL Cholesterol Calculated 144 mg/dL (<100); Sodium 141 mmol/L (135-145); Total Protein 7.4 g/dL (6.5-8.0); Triglycerides 111 mg/dL (<150)
[2024-12-26 10:52] LABS: TSH reflex Free T4 2.42 uIU/mL (0.32-4.0); Vitamin D 25-OH Total 53.4 ng/mL (>30)
[2024-12-26 10:59] LABS: Appearance Urine Clear; Color Urine Yellow; Glucose Urine UA Negative (Negative); Leukocyte Esterase Urine Trace (Negative); Nitrite Urine Negative (Negative); PH 5.5 (5.0-9.0); UMIC TRIGGER UACC YES; Urine Blood Negative (Negative); Urine Ketones Negative (Negative); Urine Protein Negative (Neg-Trace)
[2024-12-26 11:02] LABS: Microalbumin Urine < 5.0 mg/L
[2024-12-26 11:08] LABS: Bacteria Urine None Seen (None Seen); Hyaline Casts Urine 0-2 /LPF (0-2); RBC Urine 0-2 /HPF (0-2); Squamous Epithelial Cell Urine 0-2 /HPF (0-2); WBC Urine 0-5 /HPF (0-5)
== END 2024-12-26 08:39 | disposition home or self-care (01) ==
LOC: HO.LAB 08:38
PROVIDERS: PCP Nurse Practitioner Family; Visit Provider Nurse Practitioner Family
DX: Z00.00 Encounter for general adult medical examination without abnormal findings (principal)
CPT/HCPCS: 36415; 80053; 80061; 81001; 81003; 82043; 82306; 82570; 84443; 85025

== ENCOUNTER 2025-01-09 10:37 | Outpatient (AMB) | payer MEDICARE, OTHER, SELFPAY ==
--- NOTE | 2025-01-09 10:30 | A.OFFPC_ITS ---
Intake Visit Reasons: Telehealth 2-3 wks labs review Intake Note: patient here for follow up on lab results. Manager Of Enterprise Required: No Is last menstrual period known: No Post menopausal: No Patient : No Allergies No Known Allergies Allergy (Verified 01/09/25 10:31) Tobacco use date assessed: 01/09/25 Fall risk assessment: No Falls in past year Last assessed Fall Risk: 01/09/25 Dental Screening Dental Screen Date: 01/09/25 Did you have a dental visit in the last 12 months?: Yes Did you have a dental problem in the last 6 months where you did not have access to dental care?: No Was dental information given to patient?: Patient has dentist HPI HPI Comments History of Present Illness Details 79-year-old [facility] of recent lab results. She offers no complaints and denies acute symptoms at this time. [facility] Medical History (Updated 01/09/25 @ 11:11 by Josue Mckeon CNP) Eczema Arthritis Sinusitis Surgical History (Updated 12/19/24 @ 11:45 by Umm Castellanos MA) History of carpal tunnel surgery of right wrist History of carpal tunnel surgery of left wrist H/O lateral meniscus repair of right knee H/O lateral meniscus repair of left knee H/O: Family History (Updated 12/19/24 @ 11:33 by Umm Castellanos MA) Paternal Grandfather Alcohol abuse Paternal Grandmother FH: mental illness Mother High blood pressure Cardiovascular disease Family/Other No problems noted. Father Multiple myeloma Sister Cancer Social History Housing: House Patient Tobacco Use Status: Never used Tobacco e-Cigarette/Vaping Use: Never Used Second Hand Smoke Exposure: No Patient : No service: No Current occupational status: retired Cognitive needs: No Hearing needs: No Vision needs: Yes Questionnaire Thrive Questionnaire Date Thrive assessed: 12/19/24 I am a: Patient What is your living situation today?: I have a steady place to live Within the past 12 months, did the food you bought not last and you didn't have the money to get more?: Never true Within the past 12 months, did you worry whether your food would run out before you got money to buy more?: Never true Do you have trouble paying for medicines?: No Do you have trouble getting transportation to medical appointments?: No Do you have trouble paying your heating and electricity bill?: No Do you have trouble taking care of your child, family member or friend?: No Do you have trouble with day-to-day activities such as bathing, preparing meals, shopping, managing finances, etc.?: No Are you currently unemployed and looking for a job?: No Are you interested in more education?: No Please select the resources that you would like help with: None Currently or been in a relationship where the following occur: No concerns reported THRIVE Score: 0 AUDIT C Alcohol Use Questionnaire (AUDIT-C) 3. How often do you have six or more drinks on one occasion?: Never Total Score: 0 LANDON-7 AMB Questionnaire LANDON-7 Date LANDON - 7 assessed: 12/19/24 Source: Developed by Drs. Bucky Adler, Shu Henderson, Checo Egan and colleagues, with an educational khanh from [employer]. Review of Systems Const Details: Denies chills, Denies fatigue, Denies fever(s), Denies headache(s) and Denies weakness Cardiac Denies chest pain, Denies claudication, Denies leg edema, Denies lightheadedness, Denies palpitations, Denies dyspnea, Denies dyspnea on exertion, Denies orthopnea and Denies other (Loss of consciousness) Resp Denies cough, Denies excessive phlegm production, Denies dyspnea, Denies dyspnea on exertion, Denies snoring and Denies wheezing Physical exam (Primary Care) Tobacco/Smoking Status: Tobacco use Status Tobacco use date assessed 01/09/25 01/09/25 10:34 Patient Tobacco Use Status Never used Tobacco 01/09/25 10:34 e-Cigarette/Vaping Use Never Used 01/09/25 10:34 Thrive Assessment: Date of Thrive Assessment Date Thrive assessed 12/19/24 01/09/25 10:34 Currently or been in a relationship where the following occur: No concerns reported Const Other: Patient is alert oriented x3. Telehealth Telehealth Telehealth Platform: Telephone Location of provider rendering services: practice address Location of patient: address on file Patient Identification confirmed using: Name, : Yes Telehealth method: voice only Patient verbally consented to treatment: Yes Patient verbally consented to billing insurance company: Yes Patient informed of any privacy concerns related to visit: Yes Coding Level of Care Code Tele Est Pt Level 3 (06243) Diagnoses Thrombocytosis D75.839 Hypercholesterolemia E78.00 Time Spent (min) 10 Assessment & Plan Assessment & Plan (1) Thrombocytosis: Code(s): D75.839 - Thrombocytosis, unspecified Category: Medical Plan: Recent platelet level is elevated, 479. Will recheck platelet level and make changes as needed. Verbalized understanding and agreed with the plan. (2) Hypercholesterolemia: Code(s): E78.00 - Pure hypercholesterolemia, unspecified Category: Medical Plan: Recent total cholesterol and LDL levels are elevated, 228 and 144 respectively. Advised to limit foods high in saturated fat and avoid foods high in trans fat. Routine exercise encouraged. Fast for 10-12 hours, may drink water, and perform lipid panel blood work 2-3 days before next visit. Follow-up for telehealth visit in 2 months. Return sooner with symptoms or concerns. Verbalized understanding and agreed with the plan. Orders: Orders Platelet Count Today D75.839 - Thrombocytosis, unspecified Lipid Panel 2 Months E78.00 - Pure hypercholesterolemia, unspecified
== END 2025-01-09 15:07 | disposition home or self-care (01) ==
LOC: HO.HMCFM 10:37
PROVIDERS: PCP Nurse Practitioner Family; Visit Provider Nurse Practitioner Family
DX: D75.839 Thrombocytosis, unspecified (principal); E78.00 Pure hypercholesterolemia, unspecified

== ENCOUNTER → 2025-01-09 10:37 | Outpatient (BNVA) | payer MEDICARE, OTHER, SELFPAY | PROVIDERS: PCP Nurse Practitioner Family; Visit Provider Nurse Practitioner Family ==

== ENCOUNTER 2025-01-16 11:55 | Outpatient (REF) | payer MEDICARE, OTHER, SELFPAY ==
[2025-01-16 12:50] LABS: Platelet Count 493 X10*3/uL (160-400)
[2025-01-16 13:25] LABS: Appearance Urine Clear; Color Urine Dark Yellow; Glucose Urine UA Negative (Negative); Leukocyte Esterase Urine Negative (Negative); Nitrite Urine Negative (Negative); PH 5.5 (5.0-9.0); Urine Blood Negative (Negative); Urine Ketones Negative (Negative); Urine Protein Negative (Neg-Trace)
--- OUTSIDE RECORDS SUMMARY | 2025-01-16 13:56 | XMS_ITS | Data Portability ---
Author Organization [place] [facility] Augusto Marrero AONE [place] Address [address] [facility] [address] [place] [address] Assessment Encounter Date Assessment Date Assessment LastModified by Organization Details LastModified Time 05/15/2023 05/15/2023 78-year-old female twisting injury with notable degenerative arthritis of the right knee. Since the initial twisting injury a week ago she notes 60% improvement however she is going away to [place] in a week for which she wants [...] more view 2024 025 [email or web address] [facility], [address], [place], [address], 11/13/2024 11:27:11 XR, knee, 4 or more view 2022 023 [facility], [address], [place], [address], 05/15/2023 15:02:12 Medication Orders Marcaine (PF) 0.5 % (5 mg/mL) injection solution 2024 025 [email or web address] [id number], [address] [place], [address], 11/13/2024 11:27:11 lidocaine (PF) 100 mg/5 mL (2 %) injection syringe [id number], [address] [place], [address], 11/13/2024 11:27:11 [email or web address] lone acetonide 40 mg/mL suspensio n for injection [address]/[id number], [address] [place], [address], 11/13/2024 11:27:11 Kenalog 40 mg/mL suspensio n for injection 2022 023 [email or web address] [id number], [address] [place], [address], 11/13/2024 11:06:53 lidocaine (PF) 10 mg/mL (1 %) injection solution 2022 023 [email or web address] [id number], [address] [place], [address], 11/13/2024 11:06:56 Patient TargetsNo targets recorded. Patient [...] patellofemoral compartment Not available 05/15/2023 13:51:53 11/13/2024 [id number] {{2 3 4 5 6 7* 8 [...] Time Osteoarthri tis of right knee joint 9410224759237 00 Active 2022 IJEOMA HARRIS PA-C [address] [facility],[address], [place], [address], [place] [facility], P 3 12:36:03 Osteoarthri tis of left knee joint 7016733770150 09 Active 2022 IJEOMA HARRIS PA-C [address] [facility],[address], [place], [address], [place] [facility], P 3 12:36:07 Problem Notes None recorded. Procedures Surgical History Date Name Laterality Status Provider Name and Address Organization Details Recorded Time 5 MJG Knee injection w/US completed IJEOMA JIN PA-C [address] [facility] [address], [place], [address], [place] [facility], P 11/13/2024 11:29:16 3 Knee Joint/Bursa Asp & Inj completed IJEOMA HARRIS PA-C [address] [facility] [address], [place], [address], [place] [facility], P 05/15/2023 12:33:43 Imaging Results None recorded. [...] Updated DateTime 11/13/2024 165.1 cm 23.1 kg/m2 07867.34 g Jennifer Maldonado [facility], [facility] 11/13/2024 11:07:30 Date Recorded Body height Body mass index (BMI) Body weight Provider Name and Address Organization Details Last Updated DateTime 05/15/2023 165.1 cm 23.1 kg/m2 39271.34 g Keli Carmona [facility], 05/15/2023 15:51:48 Social History Question Answer Notes LastModified by Organizat ion Details LastModified Time Tobacco Smoking Status Never Smoker Keli Carmona [facility], [facility] 05/15/2023 16:02:40 What Is Your [...] Anemia N Brain Injury N Heart Attack (VT) N Osteopenia N Diabetes N Bleeding Disorder N Seizures/Epilepsy N AIDS/HIV N Congestive Heart Failure (CHF) N Asthma N Amputation N Reflux/GERD N Sleep Apnea N Aneurysm N Hepatitis N Heart Disease N Pulmonary Embolism N Hypertension N Osteoporosis N Gynecological HistoryNo gynecological history recorded. Obstetrics History GPAL:G 0 P 0 0 0 0 Past Encounters Encounter ID Performer Location Encounter Start Date Encounter Closed Date Diagnosis/Indication Diagnosis SNOMED-CT Code Diagnosis ICD10 Code Diagnosis Note [id number] MD ANGELICA Rome [facility] [address] [address] 05/15/2023 13:07:34 05/15/2023 13:51:24 Pain of right knee joint [id number] 19052 M25.561 Osteoarthr itis of right knee joint 5417325045 71021 M17.11 [id number] MD ANGELICA Rome [facility] [address] [address] 11/13/2024 10:49:28 11/13/2024 11:26:25 Osteoarthritis of right knee joint 6681609602 87574 M17.11 Health Concerns Section Related Observation LastModified by Organization Detai ls LastModified Time None Recorded Concern Status LastModified by Organization Details LastModified Time None Recorded Advance Directives Directive None Recorded Payers Encounter Date Sequence Insurance Name Policy Number Policy Montano Covered Member ID Montano Member ID Guarantor Name 05/15/2023 2 FOR LIFE () Roberta Fitzpatrick [id number] Roberta Fitzpatrick 05/15/2023 1 MEDICARE B-[place]: [facility] Roberta Fitzpatrick [id number] Roberta Fitzpatrick 11/13/2024 2 FOR LIFE () Roberta Fitzpatrick [id number] Roberta Fitzpatrick 11/13/2024 1 MEDICARE B-[place]: [facility] Roberta Fitzpatrick [id number] Roberta Fitzpatrick Notes Date Note Type Note Provider Name and Address Organization Details Recorded Time 05/15/2023 text/html BL knees. cortis one 10/28/21last x-rays 2 view right knee 10/28/2021 with mild to moderate degenerative joint disease and chondrocalcinosis without acute bony abnormality. Patient states she had updated x-rays at [facility] recently ordered by her primary care however [...] the knee joints. IJEOMA HARRIS PA-C [address] [facility],[address] [facility], [place], [address], [place] [facility], P 05/15/2023 13:52:59 11/13/2024 text/html 79-year-old fema [...] IJEOMA JIN PA-C [address], [place], [address], [place] [facility], P 11/13/2024 11:31:05 OBGyn Episode No OBEpisode recorded.
--- OUTSIDE RECORDS SUMMARY | 2025-01-16 13:57 | XMS_ITS | Clinical Summary ---
Author Organization [facility] Address [address] [place] [address] Care Team Providers Care Certified Fire Investigator Name Role Phone Kaleigh Freed MD Primary Care Provider Allergies No known active allergies Medications Medication [...] Take 15 mL by mouth. 0 Active RXI-JHz-GtJe-NaSulf-N a Asc-C (Plenvu) 140 g SOLR 0 [...] age to complete this topic Care Teams Certified Fire Investigator Relationship Specialty Start Date End Date Kaleigh Freed MD [address] [place] [phone] PCP - General Internal Medicine 07/29/18
== END 2025-01-16 11:56 | disposition home or self-care (01) ==
LOC: HO.LAB 11:55
PROVIDERS: PCP Nurse Practitioner Family; Visit Provider Nurse Practitioner Family
DX: Z00.00 Encounter for general adult medical examination without abnormal findings (principal); D75.839 Thrombocytosis, unspecified; Z13.9 Encounter for screening, unspecified
CPT/HCPCS: 36415; 81003; 85049

== ENCOUNTER 2025-01-20 08:41 | Outpatient (REF) | payer MEDICARE, OTHER, SELFPAY ==
--- NOTE | ~2025-01-20 | MM_ITS ---
EXAMINATION: DXA BONE DENSITY AXIAL HISTORY: Estrogen deficiency TECHNIQUE: ScriptPad Dual energy absorptiometry (DEXA) of the lumbar spine, total left hip, and femoral neck was performed. COMPARISON: There are no prior studies for comparison. FINDINGS: The bone mineral density of the lumbar spine is 1.339 with a T-score of 1.3, and a Z-score of 3.1. This is indicative of normal bone mineral density. The bone mineral density of the left total hip is 0.904 with a T-score of -0.8, and a Z-score of 1.1. This is indicative of normal bone mineral density. The bone mineral density of the left femoral neck is 0.857 with a T-score of -1.3, and a Z-score of 0.8. This is indicative of osteopenia. FRACTURE RISK: The FRAX index suggests a risk of major osteoporotic fracture of 12.2%, and of hip fracture 2.6%. MM/XR DEXA axial skeleton IMPRESSION: Based on bone mineral density, and according to World Health Organization (WHO) criteria, the diagnosis is consistent with osteopenia. All bone density values are in grams per centimeter squared (g/cm2). Statistically, 68% of repeat scans fall within 1 SD (+/- 0.010 g/cm2 for AP spine L1-L4) and 1 SD (+/- 0.012 g/cm2 for femur total) FRAX is a trademark of the [employer]'s [place] [employer] Metabolic Bone Disease, a World Health Organization (WHO) Collaborating Center. Electronically signed by: Bucky Penn MD 01/20/2025 09:32 AM EDT
--- OUTSIDE RECORDS SUMMARY | 2025-01-20 09:10 | XMS_ITS | Clinical Summary ---
Author Organization [facility] Address [address] [place] [address] Care Team Providers Care Pearl Cutter Name Role Phone Kaleigh Freed MD Primary Care Provider [phone] Allergies No known active allergies Medications Medication [...] Take 15 mL by mouth. 0 Active NSU-FDn-IcUd-NaSulf-N a Asc-C (Plenvu) 140 g SOLR 0 [...] age to complete this topic Care Teams Pearl Cutter Relationship Specialty Start Date End Date Kaleigh Freed MD [address] [place] [phone] PCP - General Internal Medicine 07/29/18
== END 2025-01-20 08:42 | disposition home or self-care (01) ==
LOC: HO.MAMMO 08:41
PROVIDERS: PCP Nurse Practitioner Family; Visit Provider Nurse Practitioner Family
DX: M81.0 Age-related osteoporosis without current pathological fracture (principal)
CPT/HCPCS: 77080

== ENCOUNTER → 2025-01-20 08:45 | Outpatient (BNV) | payer MEDICARE, OTHER, SELFPAY | PROVIDERS: PCP Nurse Practitioner Family; Visit Provider Radiology Diagnostic Radiology | DX: E28.39 Other primary ovarian failure (principal) | CPT/HCPCS: 77080 ==

== ENCOUNTER 2025-02-04 09:46 | Outpatient (AMB) | payer MEDICARE, OTHER, SELFPAY ==
--- NOTE | 2025-02-04 10:22 | A.OFFVIS_ITS ---
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 States she is having pain at her 4th MCP that presented a little over a month ago, as well as locking and catching. States the past week her locking and catching has gotten worse. Denies injury. States weakness in her hand and she is not able to make a full fist. Hx of CTR in 2018 Dr Mercedes Gan. Hx of LT hand MF trigger release. 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 She complains of pain in her ring finger for ~1 month, which has been worsening this past week. She says she has noticed her finger locking & catching within the last week. She has a Hx of a left middle finger trigger release in the past. She denies any numbness or tingling. She has a Hx of bilateral carpal tunnel release by Dr. Larsen in [facility] in 2018. [facility] Medical History (Updated 02/04/25 @ 10:59 by Familia Perez) Eczema Arthritis Sinusitis Surgical History (Updated 02/04/25 @ 10:39 by Maggie Mosher [facility]) History of hand surgery History of carpal tunnel surgery of right wrist History of carpal tunnel surgery of left wrist H/O lateral meniscus repair of right knee H/O lateral meniscus repair of left knee H/O: Family History (Updated 12/19/24 @ 11:33 by Umm Castellanos MA) Paternal Grandfather Alcohol abuse Paternal Grandmother FH: mental illness Mother High blood pressure Cardiovascular disease Family/Other No problems noted. Father Multiple myeloma Sister Cancer Social History Housing: House Patient Tobacco Use Status: Never used Tobacco e-Cigarette/Vaping Use: Never Used Second Hand Smoke Exposure: No service: No Current occupational status: retired Cognitive needs: No Hearing needs: No Vision needs: Yes Review of Systems Const All systems reviewed & are unremarkable except as noted in HPI and below Physical Exam Vital Signs: BMI result Body Mass Index 25.5 Const General: cooperative, healthy appearing and no acute distress Orientation/consciousness: patient oriented x3 HEENT Head: Yes normocephalic and Yes atraumatic Eyes EOM: EOMs intact bilaterally Resp Effort & Inspection: normal respiratory effort and able to speak in complete sentences Cardio Jugular venous distension: no JVD Skin General skin exam: turgor normal Rashes: no rashes Neuro General: patient oriented x3 Extrem Other: Evaluation of Right Upper Extremity: The patient is alert, oriented, and in no acute distress Neuro: Median, Ulnar, Radial nerves motor and sensory intact and sensation is normal to the tips of all digits Vascular: Cap refill brisk ROM: She can make a fist and extend her fingers Visible & palpable locking & catching of the ring finger Tender over the ring finger a1 bethany Skin: No lacerations or abrasions. General: No Ecchymosis. No Erythema or evidence of infection. Radiographs: 3 views of the right hand were taken and viewed by me today in clinic. They show no fractures or dislocations. Psych Appearance: grossly normal Affect: normal affect Attitude: cooperative Office Procedures AMB Fracture Care Details: no fx, injection Fracture Billing Code: Fracture Billing Code Assessment & Plan Assessment & Plan (1) Trigger ring finger of right hand: Code(s): M65.341 - Trigger finger, right ring finger Category: Medical Plan Assessment & Plan: 1. Right ring finger trigger finger I educated her about this condition I discussed operative and non-operative treatment options The patient would like to proceed with an injection Injection #1: The risks and benefits of a steroid injection including but not limited to risk of damage to blood vessels, nerves, tendons, infection, skin bleaching, failure to improve symptoms, increased pain, and possible need for further injections or other intervention were discussed with the patient and the patient wishes to proceed with the steroid injection. Once consent was obtained, I sterilely prepped the area over the A1 bethany of the flexor tendon sheath of the Right ring finger. I then injected the flexor tendon sheath with a combination of 1 mL of dexamethasone (4mg/ml), and 1% lidocaine. The patient tolerated the procedure well with no complications. If the patient continues to have locking and catching 4-6 weeks following this injection, they may call to schedule appointment to discuss alternative treatmen t options Follow-up prn 2. Left middle finger trigger finger, S/P release 2. History of bilateral carpal tunnel release DOS: ~[address] Larsen in [place] Doing well, no complaints Scribed for Bertha Go MD by Familia Perez, medical equipment repair technician, on 02/04/25 at 11:00 AM, EST. Orders: Orders XR hand RT min 3V Today M79.641 - Pain in right hand Coding Level of Care Code New Pt Level 4 (55648) Diagnoses Trigger ring finger of right hand M65.341 CPT Codes Fracture Care - Fracture Billing Code: Fracture Billing Code ([id number])
[2025-02-04 10:40] VITALS: BMI 25.5
--- OUTSIDE RECORDS SUMMARY | 2025-02-04 11:02 | XMS_ITS | Clinical Summary ---
Author Organization [facility] Address [address] [place] [address] Care Team Providers Care Parking Assistant Name Role Phone Kaleigh Freed MD Primary Care Provider [phone] Allergies No known active allergies Medications Medication [...] Take 15 mL by mouth. 0 Active FUT-SVp-ElZw-NaSulf-N a Asc-C (Plenvu) 140 g SOLR 0 [...] age to complete this topic Care Teams Parking Assistant Relationship Specialty Start Date End Date Kaleigh Freed MD [address] [place] [phone] PCP - General Internal Medicine 07/29/18
--- OUTSIDE RECORDS SUMMARY | 2025-02-04 11:02 | XMS_ITS | Continuity of Care Document ---
Author Name [facility] Organization [facility] Care Team Providers Care Director Museum Or Zoo Name Role Phone [facility] Unavailable Unavailable Medications Combined list of outpatient medications from Department of Defense and Veterans Affairs facilities.Medications provided include 1) outpatient medications from the last 15 months, and 2) patient-reported medications. Medication Details Route Status Patient Instructions Prescription Expires Prescription Number Last Dispense Date Ordering Provider Order Date Order Qty Source OFLOXACIN (OFLOXACIN) , 0.3%, DROPS, OPHTHALMIC, APOTEX REMA, 10 ml BOTTLE Active [id number] 2023 10 Pharmac y Data Transac tion Service Facilit y VALACYCLOVI R (valacyclov ir HCl), 1000 MG, TABLET, ORAL, [employer] 90 ea. BOTTLE Active [id number] 2023 90 Pharmac y Data Transac tion Service Facilit y Immunizations Combined list of available immunizations from the Department of Defense and Veterans Affairs facilities. Immunization Series Date Given Administered By Site Reaction Lot Number CVX Code Drug Director Appointment Status Comments Source Influenza, seasonal, injectable 2014 Belkis TILLEY () Not Given Influenza , seasonal, injectabl e DoD Social History Combined list of available smoking, tobacco, and other social history from Department of Defense and Veterans Affairs facilities. Social History Type Response Date Comment Sourc e This section is an empty social history section. DoD
== END 2025-02-04 11:10 | disposition home or self-care (01) ==
LOC: HO.HOS 09:47
PROVIDERS: PCP Nurse Practitioner Family; Visit Provider Orthopaedic Surgery
DX: M65.341 Trigger finger, right ring finger (principal)
CPT/HCPCS: 20550; 99203

== ENCOUNTER → 2025-02-04 09:49 | Outpatient (BNV) | payer MEDICARE, OTHER, SELFPAY | PROVIDERS: Visit Provider Radiology Diagnostic Radiology | DX: M19.041 Primary osteoarthritis, right hand (principal) | CPT/HCPCS: 73130 ==

== ENCOUNTER 2025-02-04 11:06 | Outpatient (REF) | payer MEDICARE, OTHER, SELFPAY ==
--- NOTE | ~2025-02-04 | XR_ITS ---
EXAMINATION: XR HAND, RIGHT CLINICAL INFORMATION: M79.641 - Pain in right hand COMPARISON: None available. TECHNIQUE: PA, lateral, and oblique views of the right hand. FINDINGS: Asymmetric joint space narrowing involving the distal interphalangeal joints of the second third and to a lesser extent fourth, and first digits. Subchondral cyst formation radial aspect distal segment of the middle phalanx third digit. No acute cortical disruption or malalignment. No subcutaneous edema. No metallic or radiopaque foreign body. XR/XR hand RT min 3V IMPRESSION: Degenerative changes suggesting osteoarthrosis. Electronically signed by: Rajat Esquivel MD 02/05/2025 11:29 AM EDT
--- OUTSIDE RECORDS SUMMARY | 2025-02-05 13:10 | XMS_ITS | Clinical Summary ---
Author Organization [facility] Address [address] [place] [address] Care Team Providers Care Real Estate Manager Name Role Phone Kaleigh Freed MD Primary Care Provider [phone] Allergies No known active allergies Medications Medication [...] Take 15 mL by mouth. 0 Active FAB-KDk-CqVx-NaSulf-N a Asc-C (Plenvu) 140 g SOLR 0 [...] age to complete this topic Care Teams Real Estate Manager Relationship Specialty Start Date End Date Kaleigh Freed MD [address] [place] [phone] PCP - General Internal Medicine 07/29/18
--- OUTSIDE RECORDS SUMMARY | 2025-02-05 13:10 | XMS_ITS | Continuity of Care Document ---
Author Name [facility] Organization [facility] Care Team Providers Care Deckhand Crab Boat Name Role Phone [facility] Unavailable Unavailable Medications Combined list of outpatient medications from Department of Defense and Veterans Affairs facilities.Medications provided include 1) outpatient medications from the last 15 months, and 2) patient-reported medications. Medication Details Route Status Patient Instructions Prescription Expires Prescription Number Last Dispense Date Ordering Provider Order Date Order Qty Source OFLOXACIN (OFLOXACIN) , 0.3%, DROPS, OPHTHALMIC, APOTEX REMA, 10 ml BOTTLE Active [id number] 2023 10 Pharmac y Data Transac tion Service Facilit y VALACYCLOVI R (valacyclov ir HCl), 1000 MG, TABLET, ORAL, [employer] 90 ea. BOTTLE Active [id number] 2023 90 Pharmac y Data Transac tion Service Facilit y Immunizations Combined list of available immunizations from the Department of Defense and Veterans Affairs facilities. Immunization Series Date Given Administered By Site Reaction Lot Number CVX Code Drug Panelboard Assembler Status Comments Source Influenza, seasonal, injectable 2014 Belkis TILLEY () Not Given Influenza , seasonal, injectabl e DoD Social History Combined list of available smoking, tobacco, and other social history from Department of Defense and Veterans Affairs facilities. Social History Type Response Date Comment Sourc e This section is an empty social history section. DoD
== END 2025-02-04 11:07 | disposition home or self-care (01) ==
LOC: HO.HOSX 11:06
PROVIDERS: Visit Provider Orthopaedic Surgery
DX: M79.641 Pain in right hand (principal); M65.341 Trigger finger, right ring finger
CPT/HCPCS: 20550; 73130; 99202; J1100; J2003

== ENCOUNTER → 2025-02-11 09:13 | Outpatient (BNV) | payer MEDICARE, OTHER, SELFPAY | PROVIDERS: PCP Nurse Practitioner Family; Referring Provider Nurse Practitioner Family; Visit Provider Internal Medicine | DX: D75.839 Thrombocytosis, unspecified (principal) | CPT/HCPCS: 99204; G2211 ==

== ENCOUNTER 2025-03-14 08:36 | Outpatient (REF) | payer MEDICARE, OTHER, SELFPAY ==
[2025-03-14 10:00] LABS: Cholesterol 222 mg/dL (<200); HDL Cholesterol 61 mg/dL (>40); LDL Cholesterol Calculated 134 mg/dL (<100); Triglycerides 137 mg/dL (<150)
== END 2025-03-14 08:37 | disposition home or self-care (01) ==
LOC: HO.LAB 08:36
PROVIDERS: PCP Nurse Practitioner Family; Visit Provider Nurse Practitioner Family
DX: E78.00 Pure hypercholesterolemia, unspecified (principal)
CPT/HCPCS: 36415; 80061

== ENCOUNTER 2025-03-16 15:21 | Outpatient (AMB) | payer MEDICARE, OTHER, SELFPAY ==
--- NOTE | 2025-03-16 15:16 | A.OFFPC_ITS ---
Intake Visit Reasons: Telehealth 2 mos hypercholesterolemia Intake Note: patient here for 2 month follow up for hypercholesterolemia Clinical Esthetician Required: No Is last menstrual period known: No Post menopausal: No Patient : No Allergies Seasonal Allergies Allergy (Verified 03/16/25 15:16) Sneezing Tobacco use date assessed: 03/16/25 Fall risk assessment: No Falls in past year Last assessed Fall Risk: 03/16/25 Dental Screening Dental Screen Date: 03/16/25 Did you have a dental visit in the last 12 months?: Yes Did you have a dental problem in the last 6 months where you did not have access to dental care?: No Was dental information given to patient?: Patient has dentist HPI HPI Comments History of Present Illness Details 79-year-old female presents [facility] for hyper[facility]ole[facility]. She admits to making healthy lifestyle choices, including diet and exercise. She has significantly cut back on cheese and meet consumption. She is followed by [facility] for thrombocytosis. She was recently experiencing GERD which responded well to otc omeprazole, and has completely resolved. She offers no complaints and denies acute symptoms at this time. [facility] Medical History (Updated 03/16/25 @ 16:12 by Josue Mckeon CNP) Eczema Arthritis Sinusitis Surgical History History of hand surgery History of carpal tunnel surgery of right wrist History of carpal tunnel surgery of left wrist H/O lateral meniscus repair of right knee H/O lateral meniscus repair of left knee H/O: Family History Paternal Grandfather Alcohol abuse Paternal Grandmother FH: mental illness Mother High blood pressure Cardiovascular disease Family/Other No problems noted. Father Multiple myeloma Sister Cancer Social History Household Members: Spouse Housing: House Patient Tobacco Use Status: Never used Tobacco e-Cigarette/Vaping Use: Never Used Second Hand Smoke Exposure: No Patient : No service: No Current occupational status: retired Current occupational exposures/hazards: No Cognitive needs: No Hearing needs: No Vision needs: Yes Questionnaire Thrive Questionnaire Date Thrive assessed: 12/19/24 LANDON-7 AMB Questionnaire LANDON-7 Date LANDON - 7 assessed: 12/19/24 Source: Developed by Drs. Bucky Adler, Shu Henderson, Checo Egan and colleagues, with an educational khanh from [employer]. Review of Systems Const Details: Denies chills, Denies fatigue, Denies fever(s), Denies headache(s) and Denies weakness Cardiac Denies chest pain, Denies claudication, Denies leg edema, Denies lightheadedness, Denies palpitations, Denies dyspnea, Denies dyspnea on exertion, Denies orthopnea and Denies other (Loss of consciousness) Resp Denies cough, Denies excessive phlegm production, Denies dyspnea, Denies dyspnea on exertion, Denies snoring and Denies wheezing Physical exam (Primary Care) Tobacco/Smoking Status: Tobacco use Status Tobacco use date assessed 03/16/25 03/16/25 15:18 Patient Tobacco Use Status Never used Tobacco 03/16/25 15:18 e-Cigarette/Vaping Use Never Used 03/16/25 15:18 Thrive Assessment: Date of Thrive Assessment Date Thrive assessed 12/19/24 03/16/25 15:18 Telehealth Telehealth Telehealth Platform: Telephone Location of provider rendering services: practice address Location of patient: address on file Patient Identification confirmed using: Name, : Yes Telehealth method: voice only Patient verbally consented to treatment: Yes Patient verbally consented to billing insurance company: Yes Patient informed of any privacy concerns related to visit: Yes Coding Level of Care Code Tele Est Pt Level 3 (20770) Diagnoses Hypercholesterolemia E78.00 Osteopenia M85.80 Time Spent (min) 15 Assessment & Plan Assessment & Plan (1) Hypercholesterolemia: Code(s): E78.00 - Pure hypercholesterolemia, unspecified Category: Medical Plan: Recent total cholesterol and LDL levels are mildly elevated, 222 and 134 respectively, previous levels were 228 and 144 respectively. Likely due to poor diet. No know family history of HLD. Advised to limit foods high in saturated fat and avoid foods high in trans fat. Routine exercise encouraged. Fast for 10-12 hours, may drink water, and perform lipid panel blood work 2-3 days before next visit. Follow-up for telehealth visit in 2 months. Return sooner with symptoms or concerns. Verbalized understanding and agreed with treatment plan. (2) Osteopenia: Code(s): M85.80 - Other specified disorders of bone density and structure, unspecified site Category: Medical Plan: Recent bone scan revealed osteopenia. She notes that she takes calcium with vitamin-D 200 mg twice daily; encouraged to continue this regimen. Will continue to monitor. Verbalized understanding and agreed with the plan. Orders: Orders Lipid Panel 2 Months E78.00 - Pure hypercholesterolemia, unspecified Medications: Changed From azelastine-fluticasone 137-50 mcg/spray intranasal To azelastine-fluticasone 137-50 mcg/spray 1 spray intranasal .QD PRN 23 grams 3RF allergies
--- OUTSIDE RECORDS SUMMARY | 2025-03-16 16:33 | XMS_ITS | Data Portability ---
Author Organization [place] [facility] Augusto Marrero AONE [place] Address [address] [facility] [address] [place] [address] Assessment Encounter Date Assessment Date Assessment LastModified by Organization Details LastModified Time 05/15/2023 05/15/2023 78-year-old female twisting injury with notable degenerative arthritis of the right knee. Since the initial twisting injury a week ago she notes 60% improvement however she is going away to [place] in a week for which she wants [...] findings at length with the patient today. We discussed the nature and etiology of this problem along with current treatment options. We discussed the expected course and outcomes and what to expect. We also discussed risks and benefits. All of their questions were answered today, and there was exhibited understanding and comprehension of all that was discussed. Time Spent: 10 minutes were spent reviewing previous imaging and charting. 10 minutes were spent obtaining patient history. 5 minutes were spent on physical exam. 5minutes were spent explaining diagnosis and assessment. Today's [...] seen and evaluated by Ijeoma Jin MS, PA-C in indirect conjunction with documenting/supe rvising provider [...] Organization Details Last Modified Time Details Appointments None recorded. Lab None recorded. Referral None recorded. Procedures None recorded. Surgeries None recorded. Imaging XR, knee, 4 or more view 2024 025 [email or web address] [facility], [address], [place], [address], 5 11:27:11 XR, knee, 4 or more view 2022 023 [facility], [address], [address], [place], [address], 3 15:02:12 Medication Orders Marcaine (PF) 0.5 % (5 mg/mL) injection solution 2024 025 [email or web address] [facility]acy #[id number], [address] [place], [address], 5 11:27:11 lidocaine (PF) 100 mg/5 mL (2 %) injection syringe [address]/Pharmacy [address], [address] [place], [address], 5 11:27:11 triamcinolo ne acetonide 40 mg/mL suspension for injection [address]/Pharmacy [address], [address] [place], [address], 5 11:27:11 Kenalog 40 mg/mL suspension for injection 2022 023 [email or web address] [facility], [address] [place], [address], 5 11:06:53 lidocaine (PF) 10 mg/mL (1 %) injection solution 2022 023 [email or web address] [facility], [address] [place], [address], 5 11:06:56 Patient TargetsNo targets recorded. Patient Instructions [...] patellofemoral compartment Not available 05/15/2023 13:51:53 11/13/2024 [id number] view X-ray salud dy obtained during today's office encounter show evidence of moderate right knee and severe left knee osteoarthritis. There is joint space narrowing, subchondral sclerosis and marginal osteophytosis. Kellgren-Akbar grade 2on the right and 3 on the left. No evidence of acute fracture or osteolytic findings. Not available 11/13/2024 11:30:34 Reason for Referral None Reported. Problems Name Problem SNOMED Code Status Onset Date Resolution Date Notes Provider Name and Address Organization Details Recorded Time Osteoarthri tis of right knee joint 0543719256830 00 Active 2022 IJEOMA HARRIS PA-C [address] [facility], [place], [address], [place] [facility], P 3 12:36:03 Osteoarthri tis of left knee joint 7988521192439 09 Active 2022 IJEOMA HARRIS PA-C [address], [place], [address], [place] [facility], P 3 12:36:07 Problem Notes None recorded. Procedures Surgical History Date Name Laterality Status Provider Name and Address Organization Details Recorded Time 5 MJG Knee injection w/US completed IJEOMA JIN PA-C [address], [place], [address], [place] [facility], P 11/13/2024 11:29:16 3 Knee Joint/Bursa Asp & Inj completed IJEOMA HARRIS PA-C [address], [place], [address], [place] [facility], P 05/15/2023 12:33:43 Imaging Results None recorded. [...] Not Available Not Available Not Avai lable fluocinonid e 0.05 % topical cream APPLY [...] Updated DateTime 11/13/2024 165.1 cm 23.1 kg/m2 80459.34 g Jennifer Maldonado [facility] 11/13/2024 11:07:30 Date Recorded Body height Body mass index (BMI) Body weight Provider Name and Address Organization Details Last Updated DateTime 05/15/2023 165.1 cm 23.1 kg/m2 58523.34 g Keli Carmona [facility], [facility] 05/15/2023 15:51:48 Social History None recorded. Functional Status Question Answer Note LastModified by Organizat ion Details LastModified Time Do you use any illicit or recreational drugs? No Information not available 05/15/2023 Do you or have you ever used any other forms of tobacco or nicotine? No Information not available 05/15/2023 What is your level of alcohol consumption? None Information not available 05/15/2023 Mental Status None recorded. Family History Relationship [...] Anemia N Brain Injury N Heart Attack (ND) N Osteopenia N Diabetes N Bleeding Disorder [...] SNOMED-CT Code Diagnosis ICD10 Code Diagnosis Note [id number] EULALIA RIGGS [facility] [address] [facility] [address] [place] [address] 05/15/2023 13:07:34 05/15/2023 13:51:24 Pain of right knee joint 1041784573 90053 M25.561 Osteoarthr itis of right knee joint 3032562299 59186 M17.11 [id number] EULALIA SUTTONMS [facility] [address] [facility] [address] [place] [address] 11/13/2024 10:49:28 11/13/2024 11:26:25 Osteoarthritis of right knee joint 9328149332 57490 M17.11 Health Concerns Section Related Observation LastModified by Organization Detai ls LastModified Time None Recorded Concern Status LastModified by Organization Details LastModified Time None Recorded Advance Directives Directive None Recorded Payers Encounter Date Sequence Insurance Name Policy Number Policy Montano Covered Member ID Montano Member ID Guarantor Name 05/15/2023 2 FOR LIFE () Roberta Fitzpatrick [id number] Roberta Fitzpatrick 05/15/2023 1 MEDICARE B-[place]: [facility] [employer] [facility] Roberta Fitzpatrick [id number] Roberta Fitzpatrick 11/13/2024 2 FOR LIFE () Roberta Fitzpatrick [id number] Roberta Fitzpatrick 11/13/2024 1 MEDICARE B-[place]: [facility] Roberta Fitzpatrick [id number] Roberta Fitzpatrick Notes Date Note Type Note Provider Name and Address Organization Details Recorded Time 05/15/2023 text/html BL knees. cortis one 10/28/21last x-rays 2 view right knee 10/28/2021 with mild to moderate degenerative joint disease and chondrocalcinosis without acute bony abnormality. Patient states she had updated x-rays at [facility] recently ordered by her primary care [...] the knee joints. IJEOMA HARRIS PA-C [address] [facility],[address] [address], [place], [address], [place] [facility], P 05/15/2023 13:52:59 11/13/2024 text/html 79-year-old fema clarence presents with chief complaint of right knee [...] accident or trauma. IJEOMA JIN PA-C [address] [facility],[address] [facility], [place], [address], [place] [facility], P 11/13/2024 11:31:05 OBGyn Episode No OBEpisode recorded.
== END 2025-03-16 16:23 | disposition home or self-care (01) ==
LOC: HO.HMCFM 15:21
PROVIDERS: PCP Nurse Practitioner Family; Visit Provider Nurse Practitioner Family
DX: E78.00 Pure hypercholesterolemia, unspecified (principal); M85.80 Other specified disorders of bone density and structure, unspecified site

== ENCOUNTER → 2025-03-16 15:21 | Outpatient (BNVA) | payer MEDICARE, OTHER, SELFPAY | PROVIDERS: PCP Nurse Practitioner Family; Visit Provider Nurse Practitioner Family | DX: Z13.89 Encounter for screening for other disorder (principal) ==

== ENCOUNTER 2025-03-17 15:21 | Outpatient (AMB) | payer MEDICARE, OTHER, SELFPAY ==
--- NOTE | 2025-03-17 15:37 | MHC.OFFVIS ---
Vital Signs 03/17/25 16:01 Height 5 ft 5 in Weight 151 lb BMI 25.1 Intake Visit Reasons: OV RT hand Ring finger pain Intake Note: Roberta 79 yr old female presents today fro a follow up visit for her right ring trigger finger s/p trigger injection from 02/04/25. States injection helped with catching and locking and would like to discuss surgery. Allergies Seasonal Allergies Allergy (Verified 03/17/25 16:07) Sneezing HPI HPI OV RT hand Ring finger pain: Details: Roberta is a 79 year old right hand dominant woman who returns to discuss her right ring finger trigger finger, S/P injection, done on 02/04/25 She says her injection helped with some of her pain, but she continues to have worsening locking & catching of her finger She has a Hx of a left middle finger trigger release in the past with good results.. She is interested in surgery for her right ring finger. She denies any numbness or tingling. She has a Hx of bilateral carpal tunnel release by Dr. Larsen in [facility] in 2018. [facility] Medical History (Updated 03/16/25 @ 16:12 by Josue Mckeon CNP) Eczema Arthritis Sinusitis Surgical History History of hand surgery History of carpal tunnel surgery of right wrist History of carpal tunnel surgery of left wrist H/O lateral meniscus repair of right knee H/O lateral meniscus repair of left knee H/O: Family History Paternal Grandfather Alcohol abuse Paternal Grandmother FH: mental illness Mother High blood pressure Cardiovascular disease Family/Other No problems noted. Father Multiple myeloma Sister Cancer Social History Household Members: Spouse Housing: House Patient Tobacco Use Status: Never used Tobacco e-Cigarette/Vaping Use: Never Used Second Hand Smoke Exposure: No service: No Current occupational status: retired Current occupational exposures/hazards: No Cognitive needs: No Hearing needs: No Vision needs: Yes Physical Exam Vital Signs: BMI result Body Mass Index 25.1 Extrem Other: Evaluation of Right Upper Extremity: The patient is alert, oriented, and in no acute distress Neuro: Median, Ulnar, Radial nerves motor and sensory intact and sensation is normal to the tips of all digits Vascular: Cap refill brisk ROM: She can make a fist and extend her fingers Visible & palpable locking & catching of the ring finger Tender over the ring finger a1 bethany Ring finger PIP joint flexion contracture of ~15 degrees Assessment & Plan Assessment & Plan (1) Trigger ring finger of right hand: Code(s): M65.341 - Trigger finger, right ring finger Category: Medical Plan Assessment & Plan: 1. Right ring finger trigger finger, S/P injection Date of injection: 02/04/25 I educated her about this condition I discussed operative and non-operative treatment options The patient would like to proceed with surgery She will work on finger ROM exercises at home The risks and benefits of operative treatment were discussed with the patient and the patient wishes to proceed with surgery. These risks include, but are not limited to risk of damage to blood vessels, nerves, tendons, infection, recurrence, incomplete relief of preoperative symptoms, persistent pain, possible need for further surgery and the risks associated with regional blocks and anesthesia. The plan is to take the patient to the operating room sometime in the next few weeks for the following procedures: 1. Right ring finger trigger release, under local All of the preoperative paperwork including the consent was reviewed today. All the patient's questions were answered. The patient understands that they will be contacted by our market research executive soon to schedule this procedure. She would like to be placed on a cancellation list for a sooner DOS if possible. She denies Diabetes, blood thinners, asthma, heart, lung, kidney issues 2. Left middle finger trigger finger, S/P release 2. History of bilateral carpal tunnel release DOS: ~[address] Larsen in [place] Doing well, no complaints Scribed for Bertha Go MD by Familia Perez, certified court/medical interpreter, on 03/17/25 at 4:10 PM, EST. Coding Level of Care Code Est Pt Level 4 (97315) Diagnoses Trigger ring finger of right hand M65.341
[2025-03-17 16:01] VITALS: BMI 25.1
--- OUTSIDE RECORDS SUMMARY | 2025-03-17 16:50 | XMS_ITS | Data Portability ---
Author Organization [place] [facility] Augusto Marrero AONE [place] Address [address] [facility] [address] [place] [address] Assessment Encounter Date Assessment Date Assessment LastModified by Organization Details LastModified Time 05/15/2023 05/15/2023 78-year-old female twisting injury with notable degenerative arthritis of the right knee. Since the initial twisting injury a week ago she notes 60% improvement however she is going away to [place] in a week for which she wants [...] more view 2024 025 [email or web address] [facility], [address], [address], [place], [address], 5 11:27:11 XR, knee, 4 or more view 2022 023 [facility], [address], [address], [place], [address], 3 15:02:12 Medication Orders Marcaine (PF) 0.5 % (5 mg/mL) injection solution 2024 025 [email or web address] [facility]armacy #7111, [address] [place], [address], 5 11:27:11 lidocaine (PF) 100 mg/5 mL (2 %) injection syringe [address]/Pharmacy [facility], [address] [place], [address], 5 11:27:11 triamcinolo ne acetonide 40 mg/mL suspension for injection [address]/Pharmacy [facility], [address] [place], [address], 5 11:27:11 Kenalog 40 mg/mL suspension for injection 2022 023 [email or web address] [facility]acy [facility], [address] [place], [address], 5 11:06:53 lidocaine (PF) 10 mg/mL (1 %) injection solution 2022 023 [email or web address] [facility], [address] [place], [address], 5 11:06:56 Patient TargetsNo targets recorded. Patient [...] patellofemoral compartment Not available 05/15/2023 13:51:53 11/13/2024 [id number] view X-ray salud dy obtained during [...] Time Osteoarthri tis of right knee joint 7259292600645 00 Active 2022 IJEOMA HARRIS PA-C [address] [facility] [place], [address], [place] [facility], P 3 12:36:03 Osteoarthri tis of left knee joint 5102649742751 09 Active 2022 IJEOMA HARRIS PA-C [address], [place], [address], [place] [facility], P 3 12:36:07 Problem Notes None recorded. Procedures Surgical History Date Name Laterality Status Provider Name and Address Organization Details Recorded Time 5 MJG Knee injection w/US completed IJEOMA JIN PA-C [address], [place], [address], [place] [facility], P 11/13/2024 11:29:16 3 Knee Joint/Bursa Asp & Inj completed IJEOMA HARRIS PA-C [address], [place], [address], [place] [facility], P 05/15/2023 12:33:43 Imaging Results None recorded. [...] Updated DateTime 11/13/2024 165.1 cm 23.1 kg/m2 30530.34 g Jennifer Maldonado [facility], [facility] 11/13/2024 11:07:30 Date Recorded Body height Body mass index (BMI) Body weight Provider Name and Address Organization Details Last Updated DateTime 05/15/2023 165.1 cm 23.1 kg/m2 77459.34 g Keli Carmona [facility], [facility] 05/15/2023 15:51:48 Social History None [...] MRSA N Blood Transfusion N Emphysema N Hypothyroidism N COPD N Depression N Pacemaker N Vascular Disease N Gastrointestinal Disease N Anxiety Disorder N Autoimmune disease N Arthritis Y Cancer N Stroke N High Cholesterol N Neurologic Disorder N Liver Disease N Organ Transplant N Arrhythmia N Rheumatoid Arthritis N Fibromyalgia N Kidney Disease N Allergies/Hayfever Y Adverse Reaction to Anesthesia N Thyroid Problems N Anemia N Brain Injury N Heart Attack (AK) N Osteopenia N Diabetes N Bleeding Disorder [...] SNOMED-CT Code Diagnosis ICD10 Code Diagnosis Note [id number] EULALIA RIGGS [employer] [address] [facility] [address] [place] [address] 05/15/2023 13:07:34 05/15/2023 13:51:24 Pain of right knee joint 6372693693 98306 M25.561 Osteoarthr itis of right knee joint 2095617539 84863 M17.11 [id number] EULALIA SUTTONCA [employer] [address] [facility] [address] [place] [address] 11/13/2024 10:49:28 11/13/2024 11:26:25 Osteoarthritis of right knee joint 4244424034 11166 M17.11 Health Concerns Section Related Observation LastModified by Organization Detai ls LastModified Time None Recorded Concern Status LastModified by Organization Details LastModified Time None Recorded Advance Directives Directive None Recorded Payers Encounter Date Sequence Insurance Name Policy Number Policy Montano Covered Member ID Montano Member ID Guarantor Name 05/15/2023 2 FOR LIFE () Roberta Fitzpatrick [id number] Roberta Fitzpatrick 05/15/2023 1 MEDICARE B-[place]: [facility] [employer] [facility] Roberta Fitzpatrick [id number] Roberta Fitzpatrick 11/13/2024 2 FOR LIFE () Roberta Fitzpatrick [id number] Roberta Fitzpatrick 11/13/2024 1 MEDICARE [place]: [facility] Roberta Fitzpatrick [id number] Roberta Fitzpatrick Notes Date Note Type Note Provider Name and Address Organization Details Recorded Time 05/15/2023 text/html BL knees. cortis one 10/28/21last x-rays 2 view right knee 10/28/2021 with mild to moderate degenerative joint disease and chondrocalcinosis without acute bony abnormality. Patient states she had updated x-rays at [facility] recently ordered by her primary care [...] the knee joints. IJEOMA HARRIS PA-C [address] [facility],[address] [address], [place], [address], [place] [facility], P 05/15/2023 13:52:59 11/13/2024 text/html 79-year-old fema [...] accident or trauma. IJEOMA JIN PA-C [address] [facility],[address] [facility], [place], [address], [place] [facility], P 11/13/2024 11:31:05 OBGyn Episode No OBEpisode recorded.
== END 2025-03-17 16:28 | disposition home or self-care (01) ==
LOC: HO.HOS 15:22
PROVIDERS: PCP Nurse Practitioner Family; Visit Provider Orthopaedic Surgery
DX: M65.341 Trigger finger, right ring finger (principal)
CPT/HCPCS: 99214

== ENCOUNTER → 2025-03-17 15:21 | Outpatient (BNVA) | payer MEDICARE, OTHER, SELFPAY | PROVIDERS: PCP Nurse Practitioner Family; Visit Provider Orthopaedic Surgery | DX: M65.341 Trigger finger, right ring finger (principal) | CPT/HCPCS: 99212 ==

== ENCOUNTER 2025-03-26 09:54 | Day surgery (SDC) | payer MEDICARE, OTHER, SELFPAY ==
[2025-03-26 08:53] VITALS: BMI 25.5
[2025-03-26 10:01] VITALS: BP 136/74; PULSE 76; RESP 19; TEMP 36.4; O2SAT 98
--- NOTE | 2025-03-26 11:50 | P.OP_ITS ---
Operative Note Operative Note Date of Service: 03/26/25 Narrative: Operative Note Preop diagnosis: 1. Right ring finger Trigger finger Postop diagnosis: Same Procedure: 1. Right ring finger A1 bethany release Surgeon: Bertha Go MD Harness Puller: None Anesthesia: local block using 1% lidocaine with epinephrine Findings: No locking or catching after A1 bethany release EBL: Less than 5 mL Tourniquet time: None Specimens: None Complications: None Disposition: Brought to recovery room in stable condition Plan: Follow-up for 10-14 days for wound check and suture removal Indications: The patient is a 79 years old, with a right ring finger trigger finger that has been unresponsive to nonoperative management. The risks and benefits of operative treatment including but not limited to risk of damage to blood vessels, nerves, tendons, infection, persistent pain, persistent symptoms, recurrence or possible need for additional surgery were discussed with the patient and the patient wishes to proceed with surgery. Procedure: Once consent was obtained a local block was performed in the preop area using a combination of 1% lidocaine with epinephrine. The patient was then brought back to the operating suite and placed on the operative table in supine position. The right upper extremity was prepped and draped in a standard surgical fashion. Once assured that we had a good block, a 1.5 cm oblique incision was made centered over the A1 bethany of the [ ] . The incision was made through the skin to the subcutaneous tissues using a #15 blade. Careful dissection was made down to the level of the A1 bethany using tenotomy scissors, with care being taken to protect the nearby neurovascular structures. A longitudinal incision was made in the A1 bethany 1st using a #15 blade, then using tenotomy scissors under direct visualization. The A1 bethany was noted to be thickened. Following our A1 bethany release, we no longer saw any locking or catching of the digit with flexion and extension. Once satisfied with our A1 bethany release the wound was copiously irrigated with normal saline and hemostasis was obtained with a brief period of local pressure. The skin edges were reapproximated with some 5.0 nylon suture material and a sterile dressing was applied. The patient appears to have tolerated the procedure well and with no complications. All digits were well vascularized at the conclusion of the case.
--- NOTE | 2025-03-26 11:50 | MHC.SHP ---
Pre-Procedural Eval Section A - 24 Hr Update-Section A only Date of Service: 03/26/25 The patient is an INPATIENT: No Changes since office visit: No Cold of Flu in the past 2 weeks, No New Medical Problems, No Changes in Medication and No Patient answered all questions The patient has been examined within 24 hours of the surgical procedure. The History & Physical has been completed within 30 days and I have reviewed it.: Yes Section B - Complete if H&P > 30 days Chief Complaint: Trigger finger, right ring finger Allergies: Allergies Allergy/AdvReac Type Severity Reaction Status Date / Time Seasonal Allergies Allergy Sneezing Verified 03/17/25 16:07 Plan Diagnosis/Plan: Unchanged I have reviewed the history and physical and performed a pertinent physical examination on my patient. No changes have occurred unless specified. Time Spent With Patient Time: Total time managing care of this patient today ____ minutes.
[2025-03-26 12:11] VITALS: BP 125/61; PULSE 64; RESP 18; O2SAT 95
== END 2025-03-26 12:47 | disposition home or self-care (01) ==
PROVIDERS: PCP Nurse Practitioner Family; Visit Provider Orthopaedic Surgery
PROC: (CPT 26055; principal; 2025-03-26 11:10)
DX: M65.341 Trigger finger, right ring finger (principal); M79.644 Pain in right finger(s); M19.90 Unspecified osteoarthritis, unspecified site; J30.2 Other seasonal allergic rhinitis; J32.9 Chronic sinusitis, unspecified; L30.9 Dermatitis, unspecified; Z98.890 Other specified postprocedural states
CPT/HCPCS: 26055; J0171; J2003

== ENCOUNTER → 2025-03-26 09:54 | Outpatient (BNV) | payer MEDICARE, OTHER, SELFPAY | PROVIDERS: PCP Nurse Practitioner Family; Visit Provider Orthopaedic Surgery | DX: M65.341 Trigger finger, right ring finger (principal) | CPT/HCPCS: 26055 ==

== ENCOUNTER 2025-04-10 10:23 | Outpatient (AMB) | payer MEDICARE, OTHER, SELFPAY ==
--- NOTE | 2025-04-10 10:27 | MHC.OFFVIS ---
Vital Signs 04/10/25 10:32 Height 5 ft 5 in Weight 153 lb BMI 25.5 Intake Visit Reasons: PO-Rt RF Trigger 03/26/25 Intake Note: Roberta is a 79 year old right hand dominant female who presents today post operatively status post right ring finger A1 bethany release DOS: 03/26/[address] Bertha Go. States her sutures were removed by her daughter who is a RN. Patient reports she is having tenderness in her palm area, and stiffness in her right ring finger. States locking and catching has resolved, and denies any numbness and tingling. Allergies Seasonal Allergies Allergy (Verified 04/10/25 10:36) Sneezing HPI HPI PO-Rt RF Trigger 03/26/25: Details: Roberta is a 79 year old right hand dominant female who presents today post operatively status post right ring finger A1 bethany release DOS: 03/26/[address] Bertha Go. States her sutures were removed by her daughter who is a RN. Patient reports she is having tenderness in her palm area, and stiffness in her right ring finger. States locking and catching has resolved, and denies any numbness and tingling. [facility] Medical History (Updated 03/16/25 @ 16:12 by Josue Mckeon CNP) Eczema Arthritis Sinusitis Surgical History History of hand surgery History of carpal tunnel surgery of right wrist History of carpal tunnel surgery of left wrist H/O lateral meniscus repair of right knee H/O lateral meniscus repair of left knee H/O: Family History Paternal Grandfather Alcohol abuse Paternal Grandmother FH: mental illness Mother High blood pressure Cardiovascular disease Family/Other No problems noted. Father Multiple myeloma Sister Cancer Social History Household Members: Spouse Housing: House Comment: counts correct Patient Tobacco Use Status: Never used Tobacco e-Cigarette/Vaping Use: Never Used Second Hand Smoke Exposure: No service: No Current occupational status: retired Current occupational exposures/hazards: No Cognitive needs: No Hearing needs: No Vision needs: Yes Review of Systems Const All systems reviewed & are unremarkable except as noted in HPI and below Physical Exam Vital Signs: BMI result Body Mass Index 25.5 Extrem Other: Evaluation of Right Upper Extremity: The patient is alert, oriented, and in no acute distress Neuro: Median, Ulnar, Radial nerves motor and sensory intact and sensation is normal to the tips of all digits Vascular: Cap refill brisk ROM: She can make a fist and extend her fingers No further visible or palpable locking and catching of the right ring finger Patient is unable to get her right ring finger flat on the table, is able to be passively extended fully with some discomfort Assessment & Plan Assessment & Plan (1) Trigger ring finger of right hand: Code(s): M65.341 - Trigger finger, right ring finger Category: Medical Plan 1. Trigger finger, right ring finger, status post trigger release Locking and catching have resolved Patient is educated about this condition Patient is educated about the typical treatment course At this time, patient is referred to OT for range of motion of the right hand Patient is educated on [id number] exercises that she should perform prior to OT Patient understands this is amenable to this plan Follow-up as needed Orders: Orders OT Evaluation and Treatment Today M65.341 - Trigger finger, right ring finger Coding Level of Care Code Global (96316) Diagnoses Trigger ring finger of right hand M65.341
[2025-04-10 10:32] VITALS: BMI 25.5
== END 2025-04-10 10:37 | disposition home or self-care (01) ==
LOC: HO.HOS 10:24
PROVIDERS: PCP Nurse Practitioner Family
DX: M65.341 Trigger finger, right ring finger (principal)
CPT/HCPCS: 99024

== ENCOUNTER → 2025-04-10 10:23 | Outpatient (BNVA) | payer MEDICARE, OTHER, SELFPAY | PROVIDERS: PCP Nurse Practitioner Family | DX: Z47.89 Encounter for other orthopedic aftercare (principal); M65.341 Trigger finger, right ring finger; Z98.890 Other specified postprocedural states | CPT/HCPCS: 99212 ==

== ENCOUNTER 2025-05-13 10:18 | Outpatient (REF) | payer MEDICARE, OTHER, SELFPAY ==
[2025-05-13 10:30] LABS: MANUAL DIFF FLAG NO
[2025-05-13 10:36] LABS: Hematocrit 42.5 % (37.0-47.0); Hemoglobin 14.2 g/dl (12.0-16.0); Imm Gran Abs Auto 0.04 X10*3/uL (0.00-0.03); Imm Gran Pct Auto 0.5 % (0.0-0.4); Lymphocytes Absolute Auto 1.2 X10*3/uL (1.2-4.9); Mean Corpuscular HGB Conc 33.4 g/dl (31.0-35.0); Mean Corpuscular Hemoglobin 27.3 pg (27.0-33.0); Mean Corpuscular Volume 81.6 fL (80.0-98.0); NRBC Abs Auto 0.000 X10*3/uL (0.0-0.012); NRBC Pct Auto 0.0 /100WBC (0.0-0.2); Platelet Count 486 X10*3/uL (160-400); Red Blood Count 5.21 X10*6/uL (4.20-5.50); White Blood Count 8.3 X10*3/uL (4.8-10.8)
[2025-05-13 11:03] LABS: Cholesterol 219 mg/dL (<200); HDL Cholesterol 63 mg/dL (>40); Triglycerides 90 mg/dL (<150)
--- OUTSIDE RECORDS SUMMARY | 2025-05-13 11:07 | XMS_ITS | Continuity of Care Document ---
Author Name [facility] Organization [facility] Care Team Providers Care Textile Converter Name Role Phone [facility] Unavailable Unavailable Immunizations Combined list of available immunizations from the Department of Defense and Veterans Affairs facilities. Immunization Series Date Given Administered By Site Reaction Lot Number CVX Code Drug Sheet Roller Operator Status Comments Source Influenza, seasonal, injectable 2014 Belkis TILLEY () Not Given Influenza , seasonal, injectabl e [facility]D Social History Combined list of available smoking, tobacco, and other social history from Department of Defense and Veterans Affairs facilities. Social History Type Response Date Comment Sourc e This section is an empty social history section. [facility]
--- OUTSIDE RECORDS SUMMARY | 2025-05-13 11:08 | XMS_ITS | Clinical Summary ---
Author Organization [facility] Address [address] [place] [address] Care Team Providers Care Prison Classification Counselor Name Role Phone Kaleigh Freed MD Primary Care Provider [phone] Allergies No known active allergies Medications Medication [...] Take 15 mL by mouth. 0 Active RMB-KSm-CdCz-NaSulf-N a Asc-C (Plenvu) 140 g SOLR 0 [...] - - Pulse - - Temperature 36.7 C (98.1 F) 05/26/2021 10:55 AM EDT Respiratory Rate - - Oxygen Saturation - [...] season) 2024 12/14/2020, 11/23/2020 Influenza Vaccine (#1) 2025 06/15/2020 Pneumococcal Vaccine Completed 10/18/2016, 03/17/2016, 09/25/2015 Shingrix-Zoster Vaccine Completed 01/03/20 19, 07/12/2018 Hepatitis B Vaccines Aged Out No long er eligible based on patient's age to complete this topic RSV Ped < 20 months Aged Out No longe r eligible based on patient's age to complete this topic Care Teams Prison Classification Counselor Relationship Specialty Start Date End Date Kaleigh Freed MD [address] [place] [id number] PCP - General Internal Medicine 07/29/18
--- OUTSIDE RECORDS SUMMARY | 2025-05-13 11:08 | XMS_ITS ---
Author Name [facility] Organization Unknown History of Medication Use Medication Directions Dispensed Refills Start Date End Date Stat us lidocaine (PF) 100 mg/5 mL (2 %) injection syringe Take 4 mL by injection route. 11/13/2024 active Marcaine (PF) 0.5 % (5 mg/mL) injection solution Take 4 mL by injection route. 11/13/2024 active triamcinolone acetonide 40 mg/mL suspension for injection Take 40 mg by injection route. 11/13/2024 active lidocaine (PF) 10 mg/mL (1 %) injection solution Take 2 mL by injection route. 05/15/2023 active amoxicillin 875 mg tablet TAKE 1 TABLET BY MOUTH TWICE A DAY DIRECTED UNTIL FINISHED START 1 DAY BEFORE SURGERY 11/13/2024 completed amoxicillin 875 mg-potassium clavulanate 125 mg tablet TAKE 1 TABLET BY MOUTH TWICE A DAY FOR 7 DAYS 11/13/2024 completed azelastine 137 mcg-fluticasone 50 mcg/spray nasal spray USE 1 SPRAY IN EACH NOSTRIL TWICE A DAY active chlorhexidine gluconate 0.12 % mouthwash PLEASE SEE ATTACHED FOR DETAILED DIRECTIONS active ketotifen 0.025 % (0.035 %) eye drops INSTILL 1 DROP INTO AFFECTED EYE TWICE A DAY active ofloxacin 0.3 % eye drops INSTILL 1 DROP INTO AFFECTED EYE(S) 4 TIMES A DAY active ondansetron HCl 4 mg tablet TAKE 1 TABLET BY MOUTH EVERY 8 HOURS active Problems Problem Status Onset Date Problem Type Date of Resoluti on Source Osteoarthritis of left knee joint active 2023-05-15 ProblemAct [facility] Osteoarthritis of right knee joint active 2023-05-15 ProblemAct [facility] Encounters Encounter Type Encounter Reason Primary Diagnosis Location Date Ambulatory [facility] 11/13/2024 Ambulatory [facility] 11/13/2024 Ambulatory [facility] 11/13/2024 Ambulatory [facility] 11/12/2024 Ambulatory [facility] 11/12/2024 Ambulatory [facility] 11/12/2024 Ambulatory [facility] 05/15/2023 Ambulatory [facility] 05/15/2023 Ambulatory [facility] 05/15/2023 Ambulatory [facility] 05/15/2023 Ambulatory [facility] 05/15/2023 Ambulatory [facility] 05/15/2023 Ambulatory [facility] 05/14/2023 Ambulatory [facility] 05/14/2023
--- OUTSIDE RECORDS SUMMARY | 2025-05-13 11:08 | XMS_ITS | Patient Health Record ---
Author Organization [facility] Address [address] [place] [address] Care Team Providers Care Textile Clothing And Footwear Mechanic Name Role Phone Josue Mckeon N.P. Primary Care Provider Bucky Churchill Unavailable [phone] Diana Gaspar Unavailable Unavailable Allergies No Known Allergies Reason For Referral No Information Medications Medication SIG (Take, Route, Fr equency, Duration) Notes Start Date End Date Status Calcium 500-2.5 MG-MCG 1 tablet with a m eal Orally Once a day for 30 day(s) 04/28/2025 Active Multi Vitamin - 1 tablet Orally Once a day for 30 day(s) 04/28/2025 Active Vitamin B-12 100 MCG as directed Orally 04/28/2025 Active Omeprazole 20 MG 1 capsule 1/2 to 1 h our before morning meal Orally Once a day for 30 day(s) 04/28/2025 Active Aspirin 81 MG 1 tablet Orally Once a day for 30 day(s) 04/28/2025 Active Famotidine 40 MG 1 tablet Orally Twic e a day for reflux for 90 days 04/28/2025 Active Immunizations Vaccine Route Administration Date Status Comme nts Influenza Unknown 08/05/2024 Administered Social History Tobacco Use: Social History Observation Description Date Details (start date - stop date) Never Smoker NA - NA Tobacco Control (Standard) Question Answer Notes Tobacco use: Nonsmoker AUDIT-C (Standard) Question Answer Notes Did you have a drink containing alcohol in the p ast year? No Points 0 Interpretation Negative Problems Problem Type SNOMED Code ICD Code Onset Dates Problem Status W/U Status Risk Notes Problem Gastroesophageal reflux disease (594508147) GERD (gastroesophag eal reflux disease) (K21.9) Active confirmed Problem History of adenomatous polyp of colon (076005471) History of adenomatous polyp of colon (Z86.0101) Active confirmed Vital Signs Temperature 97.5 degrees Fahrenheit 04/28/2025 Blood pressure diastolic 01 mm Hg 04/28/2025 Height 65 in 04/28/2025 Blood pressure systolic 001 mm Hg 04/28/2025 Weight 151.2 lbs 04/28/2025 BMI 25.16 kg/m2 04/28/2025 Encounters Encounter Location Date Provider Diagnosis [facility] [address] [place] [address] 04/28/2025 Bucky Cali GERD (gastroesophage al reflux disease) K21.9 and History of adenomatous polyp of colon Z86.0101 Assessments Encounter Date Diagnosis (ICD Code) Assessment Notes Treatment Notes Treatment Clinical Notes Section Notes 04/28/2025 GERD (gastroesophage al reflux disease) (ICD-10 - K21.9) You can try the prescription Pepcid instead of the omeprazole. We can hold off on an upper endoscopy unless symptoms worsen with increasing heartburn, trouble eating or swallowing, etc. Overall, Roberta appears quite well. In regard to her reflux this appears to be very stable on the current regimen of omeprazole and she is not having any worrisome symptoms such as dysphagia or anorexia to suggest the need to have her undergo an upper endoscopy. Given her age and the fact that the symptoms are all relatively new, are well-controlled with medication, and not associated with any alarm symptoms , I advised her that I do not think she definitively requires an upper endoscopy for evaluation at this time. I did advise her that if she is overly concerned about the symptoms and would like an endoscopy I can certainly have her undergo that as I do think she would tolerate that very well. However, I do not think that is definitively required and guidelines would not necessarily recommend it. As such, she is inclined to hold off on the endoscopy as well. We did review the use of long-term omeprazole and I did advise her that is very safe although is associated with a variety of different issues. As such, given that her symptoms seem to be relatively mild I will start her on a prescription strength famotidine at 40 mg once or twice a day. I advised her that she could also use that just as needed. We did review that if she finds the famotidine does not work and she needs to go back on omeprazole she should then do so. I advised her that I would then recommend an upper endoscopy if her symptoms prove refractory to a PPI in the future and/or become associated with any other worrisome symptoms as mentioned above such as the dysphagia or anorexia. We also discussed her history of polyps and I advised her that based on current guidelines I would also hold off on any further screening colonoscopies given her 2 previous negative exams, 1 small polyp removed in 2020, and her age of being just about 82 at the time her next colonoscopy would be theoretically due. Obviously if anything changes such as a change in bowel habits or bleeding she would need to contact me at that time. At this point, if things remain as stable as they are and she continues to do well she would simply see me on a as needed basis. Roberta was very comfortable with this plan. Thank you again for allowing me to have participated in Roberta's care. Please do not hesitate to contact me if I can be of any further assistance in the future. 04/28/2025 History of adenomatous polyp of colon (ICD-10 - Z86.0101) Hold off on anymore screening colonoscopies unless symptoms develop Overall, Roberta appears quite well. In regard to her reflux this appears to be very stable on the current regimen of omeprazole and she is not having any worrisome symptoms such as dysphagia or anorexia to suggest the need to have her undergo an upper endoscopy. Given her age and the fact that the symptoms are all relatively new, are well-controlled with medication, and not associated with any alarm symptoms , I advised her that I do not think she definitively requires an upper endoscopy for evaluation at this time. I did advise her that if she is overly concerned about the symptoms and would like an endoscopy I can certainly have her undergo that as I do think she would tolerate that very well. However, I do not think that is definitively required and guidelines would not necessarily recommend it. As such, she is inclined to hold off on the endoscopy as well. We did review the use of long-term omeprazole and I did advise her that is very safe although is associated with a variety of different issues. As such, given that her symptoms seem to be relatively mild I will start her on a prescription strength famotidine at 40 mg once or twice a day. I advised her that she could also use that just as needed. We did review that if she finds the famotidine does not work and she needs to go back on omeprazole she should then do so. I advised her that I would then recommend an upper endoscopy if her symptoms prove refractory to a PPI in the future and/or become associated with any other worrisome symptoms as mentioned above such as the dysphagia or anorexia. We also discussed her history of polyps and I advised her that based on current guidelines I would also hold off on any further screening colonoscopies given her 2 previous negative exams, 1 small polyp removed in 2020, and her age of being just about 82 at the time her next colonoscopy would be theoretically due. Obviously if anything changes such as a change in bowel habits or bleeding she would need to contact me at that time. At this point, if things remain as stable as they are and she continues to do well she would simply see me on a as needed basis. Roberta was very comfortable with this plan. Thank you again for allowing me to have participated in Roberta's care. Please do not hesitate to contact me if I can be of any further assistance in the future. Plan Of Treatment No Information Insurance Providers Payer Name Payer Address Payer Phone Subscriber Number Group Number Insured Name Patient Relationship to Insured Coverage Start Date Coverage End Date MEDICARE OF [place] [address] [place] [address] [phone] [id number] ROBERTA KIRBY Self - patient is the insured 1 [employer] [address] [place] [address] [id number] ROBERTA KIRBY Self - patient is the insured 1 Medical (General) History Medical History History ICD Code Thrombocytosis--Followed by Dr. Hubert Nice CA,DM,CVA,Lung disease,renal dise ase Colon polyps--most recent co lonoscopy was in [address] Shelby; negative colonoscopies in 2000 and 2010 Surgical History Surgery Date(Month/Year) Carpal tunnel bilaterally Gastrocnemius surgery for the Left achil les 2022 Trigger finger release 2017,2018, 2024 Right knee 2018 1985
--- OUTSIDE RECORDS SUMMARY | 2025-05-13 11:08 | XMS_ITS | Encounter Summary ---
Author Organization [facility] Address [address] [place] [address] [place] [address] Phone Care Team Providers Care Sorter Pricer Name Role Phone Will Pineda MD Unavailable [phone] Artur Russell MD Unavailable [phone] Artur Russell MD Primary Care Provider [phone] Unknown, Unknown Primary Care Provider Kaleigh Valles MD Primary Care Provider [phone] Laurie Whitehead NP Primary Care Provider [phone] Encounter Details Date Type Department Care Team (Late st Contact Info) Description 09/05/2017 Ancillary Orders [facility] [address] [place] [address] Artur Russell MD [address] [place] [address] Social History Tobacco Use Types Packs/Day Years Used Date Smoking Tobacco: Never Assessed Comments No Sex and Gender Information Value Date Recorded Sex Assigned at Not on file Legal Sex Female 10:08 PM EDT Gender Identity Not on file Sexual Orientation Not on file documented as of this encounter Plan of Treatment Not on file documented as of this encounter Visit Diagnoses Not on filedocumented in this encounter Care Teams Sorter Pricer Relationship Specialty Start Date End Date Artur Russell MD [address] [place] [address] PCP - General 08/02/17 12/30/17 Unknown, Unknown, [address] [place] [address] PCP - General 12/31/17 02/24/18 Kaleigh Freed MD [address] [place] [address] PCP - General Internal Medicine 02/25/18 06/25/22 Laurie Whitehead NP [address] [facility] [address] [place] [address] PCP - General Family Medicine 06/26/22 Will Pineda MD [address] [place] [address] Historical LMR Provider 08/01/17 2 Artur Russell MD [address] [place] [address] Historical LMR Provider 08/01/17 1/2 2 documented as of this encounter Additional Source Comments The information contained in this document represents components of the legal health record. It is not the complete legal health record.[facility]
== END 2025-05-13 10:19 | disposition home or self-care (01) ==
LOC: HO.LAB 10:18
PROVIDERS: Internal Medicine; PCP Nurse Practitioner Family; Visit Provider Nurse Practitioner Family
DX: D75.839 Thrombocytosis, unspecified (principal); E78.00 Pure hypercholesterolemia, unspecified
CPT/HCPCS: 36415; 80061; 83615; 85025

== ENCOUNTER 2025-05-19 13:22 | Outpatient (AMB) | payer MEDICARE, OTHER, SELFPAY ==
--- NOTE | 2025-05-19 13:16 | A.OFFPC_ITS ---
Intake Visit Reasons: Telehealth 2 mos hypercholesterolemia Intake Note: Roberta presents for a telehealth appointment today to go over her latest lab results. Allergies Seasonal Allergies Allergy (Verified 05/19/25 13:48) Sneezing Medication List - Last Reconciled 05/19/25 by Josue Mckeon CNP aspirin (Adult Low Dose Aspirin) 81 mg PO DAILY azelastine-fluticasone 137-50 mcg/spray 1 spray intranasal .QD PRN famotidine (Pepcid) 40 mg PO BID fluocinonide 0.05% 0.05 appl topical DAILY naproxen sodium (Aleve) 220 mg PO Q12H PRN Tobacco use date assessed: 05/19/25 Dental Screening Dental Screen Date: 05/19/25 Did you have a dental visit in the last 12 months?: Yes Did you have a dental problem in the last 6 months where you did not have access to dental care?: No Was dental information given to patient?: Patient has dentist HPI HPI Comments History of Present Illness Details 80-year-old female presents for a tele alth visit for hyperlipidemia. She admits to making healthy lifestyle choices. She notes that her total cholesterol has always been above 200. Her mother has history of cardiovascular disease but she has unsure of family history of hyperlipidemia. She offers no complaints and denies acute symptoms at this time. [facility] Medical History (Updated 05/13/25 @ 10:15 by Diana Gaspar MD) Trigger ring finger of right hand Eczema Arthritis Sinusitis Surgical History History of hand surgery History of carpal tunnel surgery of right wrist History of carpal tunnel surgery of left wrist H/O lateral meniscus repair of right knee H/O lateral meniscus repair of left knee H/O: Family History Paternal Grandfather Alcohol abuse Paternal Grandmother FH: mental illness Mother High blood pressure Cardiovascular disease Family/Other No problems noted. Father Multiple myeloma Sister Cancer Social History (Updated 05/19/25 @ 13:19 by Yuli Sheikh MA) Household Members: Spouse Housing: Apartment Alcohol intake: never Comment: counts correct Patient Tobacco Use Status: Never used Tobacco e-Cigarette/Vaping Use: Never Used Second Hand Smoke Exposure: No service: No Current occupational status: retired Current occupational exposures/hazards: No Cognitive needs: No Hearing needs: No Vision needs: Yes Questionnaire Thrive Questionnaire Date Thrive assessed: 12/19/24 LANDON-7 AMB Questionnaire LANDON-7 Date LANDON - 7 assessed: 12/19/24 Source: Developed by Drs. Bucky Adler, Shu Henderson, Checo Egan and colleagues, with an educational khanh from [employer] Review of Systems Const Details: Denies chills, Denies fatigue, Denies fever(s), Denies headache(s) and Denies weakness Cardiac Denies chest pain, Denies claudication, Denies leg edema, Denies lightheadedness, Denies palpitations, Denies dyspnea, Denies dyspnea on exertion, Denies orthopnea and Denies other (Loss of consciousness) Resp Denies cough, Denies excessive phlegm production, Denies dyspnea, Denies dyspnea on exertion, Denies snoring and Denies wheezing Physical exam (Primary Care) Tobacco/Smoking Status: Tobacco use Status Tobacco use date assessed 05/19/25 05/19/25 13:19 Patient Tobacco Use Status Never used Tobacco 05/19/25 13:19 e-Cigarette/Vaping Use Never Used 05/19/25 13:19 Thrive Assessment: Date of Thrive Assessment Date Thrive assessed 12/19/24 05/19/25 13:19 Const Other: Patient is alert and oriented x3 Telehealth Telehealth Telehealth Platform: Telephone Location of provider rendering services: practice address Location of patient: address on file Patient Identification confirmed using: Name, : Yes Telehealth method: voice only Patient verbally consented to treatment: Yes Patient verbally consented to billing insurance company: Yes Patient informed of any privacy concerns related to visit: Yes Coding Level of Care Code Tele Est Pt Level 3 (49776) Diagnoses Hypercholesterolemia E78.00 Time Spent (min) 15 Assessment & Plan Assessment & Plan (1) Hypercholesterolemia: Code(s): E78.00 - Pure hypercholesterolemia, unspecified Category: Medical Plan: Total cholesterol and LDL levels a elevated, 219 and 138 respectively; previous levels were 222 in 134 respectively. Her total cholesterol has always been above 200. Ezetimibe 10 mg daily ordered; advised to take as prescribed. Instructed on the risks, benefits, and potential adverse reactions of the medication. Advised to limit foods high in saturated fat and avoid foods high in trans fat. Routine exercise encouraged. Fast for 10-12 hours, may drink water, and performed lipid panel blood work 2-3 days before next visit. Follow-up for telehealth visit in 3 months. Return sooner with symptoms or concerns. Verbalized understanding and agreed with the plan. Medications: New ezetimibe (Zetia) 10 mg PO DAILY 30 tabs 3RF 30 days
--- OUTSIDE RECORDS SUMMARY | 2025-05-19 14:00 | XMS_ITS | Continuity of Care Document ---
Author Name [facility] Organization [facility] Care Team Providers Care Ecological Technical Officer Name Role Phone [facility] Unavailable Unavailable Immunizations Combined list of available immunizations from the Department of Defense and Veterans Affairs facilities. Immunization Series Date Given Administered By Site Reaction Lot Number CVX Code Drug Printed Circuit Board Assembler Status Comments Source Influenza, seasonal, injectable 2014 Belkis TILLEY () Not Given Influenza , seasonal, injectabl e [facility]D Social History Combined list of available smoking, tobacco, and other social history from Department of Defense and Veterans Affairs facilities. Social History Type Response Date Comment Sourc e This section is an empty social history section. [facility]
--- OUTSIDE RECORDS SUMMARY | 2025-05-19 14:01 | XMS_ITS | Clinical Summary ---
Author Organization [facility] Address [address] [place] [address] Care Team Providers Care Infectious Diseases Physician Name Role Phone Kaleigh Freed MD Primary Care Provider [phone] Allergies No known active allergies Medications Medication [...] Take 15 mL by mouth. 0 Active [id number]-[id number]-NaSulf-N a Asc-C (Plenvu) 140 g SOLR 0 [...] age to complete this topic Care Teams Infectious Diseases Physician Relationship Specialty Start Date End Date Kaleigh Freed MD [address] [place] [id number] PCP - General Internal Medicine 07/29/18
--- OUTSIDE RECORDS SUMMARY | 2025-05-19 14:01 | XMS_ITS | Encounter Summary ---
Author Organization [facility] [place] [facility] Address [address] [place] [address] [place] [address] Phone Care Team Providers Care Special Equipment Technician Name Role Phone Will Pineda MD Unavailable [phone] Artur Russell MD Unavailable [phone] Artur Russell MD Primary Care Provider [phone] Unknown, Unknown Primary Care Provider Kaleigh Valles MD Primary Care Provider [phone] Laurie Whitehead NP Primary Care Provider [phone] Encounter Details Date Type Department Care Team (Late st Contact Info) Description 09/05/2017 Ancillary Orders [facility] [address] [place] [address] Artur Russell MD [address] [place] [address] Social History Tobacco Use Types Packs/Day Years [...] on filedocumented in this encounter Care Teams Special Equipment Technician Relationship Specialty Start Date End Date Artur Russell MD [address] [place] [address] PCP - General 08/02/17 12/30/17 Unknown, Unknown, [address] [place] [address] PCP - General 12/31/17 02/24/18 Kaleigh Freed MD [address] [place] [address] PCP - General Internal Medicine 02/25/18 06/25/22 Laurie Whitehead NP [address] [facility] 3 [place] [address] PCP - General Family Medicine 06/26/22 Will Pineda MD [address] [place] [address] Historical LMR Provider 08/01/17 2 Artur Russell MD [address] [place] [address] Historical LMR Provider 08/01/17 1/2 2 documented as of this encounter Additional Source Comments The information contained in this document represents components of the legal health record. It is not the complete legal health record.[facility]
--- OUTSIDE RECORDS SUMMARY | 2025-05-19 14:02 | XMS_ITS | Patient Health Record ---
Author Organization [facility] Address [address] [place] [address] Care Team Providers Care Regional Transfer Liaison Name Role Phone Josue Mckeon N.P. Primary Care Provider Bucky Churchill Unavailable [phone] Diana Gaspar Unavailable Unavailable Allergies No Known [...] Problem Status W/U Status Risk Notes Problem GERD (gastroesophage al reflux disease) (K21.9) Active confirmed Problem History of adenomatous polyp of colon (844115213) History of adenomatous polyp of colon (Z86.0101) Active confirmed Vital Signs Temperature 97.5 degrees Fahrenheit 04/28/2025 Blood pressure diastolic 01 mm Hg 04/28/2025 Height 65 in 04/28/2025 Blood pressure systolic 001 mm Hg 04/28/2025 Weight 151.2 lbs 04/28/2025 BMI 25.16 kg/m2 04/28/2025 Encounters Encounter Location Date Provider Diagnosis [facility] [address] [place] [address] 04/28/2025 Bucky Cali GERD (gastroesophage al reflux [...] End Date MEDICARE OF [place] [address] [place] [address] [id number] A1 ROBERTA KIRBY Self - patient is the insured 1 [employer] [address] [place] [address] [id number] A1 ROBERTA KIRBY Self - patient is the insured 1 Medical (General) History Medical History History ICD Code Thrombocytosis--Followed by Dr. Hubert [place],DM,CVA,Lung disease,renal dise ase Colon polyps--most recent co lonoscopy was in [address] Shelby; negative colonoscopies in 2000 and 2010 Surgical History Surgery Date(Month/Year) Carpal tunnel bilaterally Gastrocnemius surgery for the Left achil les 2022 Trigger finger release 2017,2018, 2024 Right knee 2017 1985
== END 2025-05-19 14:38 | disposition home or self-care (01) ==
LOC: HO.HMCFM 13:22
PROVIDERS: PCP Nurse Practitioner Family; Visit Provider Nurse Practitioner Family
DX: E78.00 Pure hypercholesterolemia, unspecified (principal)

== ENCOUNTER 2025-07-29 08:59 | Outpatient (REF) | payer MEDICARE, OTHER, SELFPAY ==
--- OUTSIDE RECORDS SUMMARY | 2025-07-29 09:47 | XMS_ITS | Encounter Summary ---
Author Organization [facility] Address [address] [place] [address] Phone Care Team Providers Care User Interface Engineer Name Role Phone Will Pineda MD Unavailable [phone] Artur Russell MD Unavailable [phone] Kaleigh Freed MD Primary Care Provider [phone] Laurie Whitehead NP Primary Care Provider [phone] Encounter Details Date Type Department Care Team (Late st Contact Info) Description 06/09/2019 Ancillary Orders [facility] [address] [place] [address] Sai Rojas MD [address] [facility], [address] [place] [address] [email or web address] Breast screening Social History Tobacco Use Types Packs/Day Years Used Date Smoking Tobacco: Never Smokeless Tobacco: Never Alcohol Use Standard Drinks/Week Comments No 0 (1 standard drink = 0.6 oz pur e alcohol) Comments No Sex and Gender Information Value Date Recorded Sex Assigned at Not on file Legal Sex Female 10:08 PM EDT Gender Identity Not on file Sexual Orientation Not on file 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 Normal interval follow-up is recommended in 12 months. BI-RADS: BI-RADS CATEGORY: 2 - Benign finding. DENSITY: The breast tissue is heterogeneously dense, which may obscure small masses Narrative 07/16/2020 5:20 PM EDT STUDY: Bilateral screening mammography with tomosynthesis and CAD TECHNIQUE: Bilateral full-field digital screening mammography is obtained and read in conjunction with computer-aided detection. Tomosynthesis as well as 2-D C view imaging were obtained. COMPARISON: Comparison made to multiple prior, most recent March 19, 2019, and most remote July 20, 2014. BREAST COMPOSITION: The breasts are heterogeneously dense, which may obscure small masses. RIGHT BREAST: History of previous biopsy. No significant masses, calcifications or other abnormalities are seen. LEFT BREAST: No significant masses, calcifications or other abnormalities are seen. Sai Rojas MD IMG MG EXAMS Final Result documented in this encounter Visit Diagnoses Diagnosis Breast screening Breast screening, unspecified Breast screening Breast screening, unspecified documented in this encounter Care Teams User Interface Engineer Relationship Specialty Start Date End Date Kaleigh Freed MD [address] [place] [address] PCP - General Internal Medicine 02/25/18 06/25/22 Laurie Whitehead NP [address] [place] [address] 3 [place] [address] PCP - General Family Medicine 06/26/22 Will Pineda MD [address] [place] [address] Historical LMR Provider 08/01/17 2 Artur Russell MD [address] [place] [address] Historical LMR Provider 08/01/17 2 documented as of this encounter Additional Source Comments The information contained in this document represents components of the legal health record. It is not the complete legal health record.[facility]
--- OUTSIDE RECORDS SUMMARY | 2025-07-29 09:47 | XMS_ITS | Encounter Summary ---
Author Organization [facility] Address [address] [facility] [address] [place] [address] Phone Care Team Providers Care Senior Label Specialist Name Role Phone Laurie Whitehead NP Primary Care Provider [phone] Encounter Details Date Type Department Care Team (Late st Contact Info) Description 11/17/2024 Ancillary Orders [address] [place] [address] Sai Rojas MD 22 [facility], [address] [place] [address] [email or web address] Breast screening (Primary Dx) Social History Tobacco Use Types Packs/Day Years Used Date Smoking Tobacco: Never Smokeless Tobacco: Never Alcohol Use Standard Drinks/Week Comments Not Currently 0 (1 standard drink = 0.6 oz pur e alcohol) No alcohol since 1978 Education Answer Date Recorded Are you interested in more education? Not on kalina e 02/09/2023 Are you concerned about learning? Not on file 02/09/2023 No 02/09/2023 No 02/09/2023 Digital Access Answer Date Recorded No 03/10/2023 No 03/10/2023 Reliable internet access at home? Not on file 03/10/2023 Device with a working camera? Not on file Comments No Sex and Gender Information Value Date Recorded Sex Assigned at Not on file Legal Sex Female 10:08 PM EDT Gender Identity Not on file Sexual Orientation Not on file Occupation Industry Job Start Date Job End Date Retired Not on file Not on file Not on file documented as of this encounter Plan of Treatment Not on file documented as of this encounter Results * BI MAMMOGRAM SCREENING WITH TOMOSYNTHESIS WITH CAD (BILATERAL) (11/17/2024 9:03 AM EST) Anatomical Region Laterality Modality Breast Left, Breast Right, Breast Bilateral Bila teral Mammography 11/18/2024 9:09 AM EST Impressions 11/18/2024 9:11 AM EST No mammographic evidence of malignancy in either breast. Annual screening mammography is recommended. BI-RADS 1 NEGATIVE The patient will be notified of the results and recommendations. Narrative 11/18/2024 9:11 AM EST BI MAMMOGRAM SCREENING WITH TOMOSYNTHESIS WITH CAD (BILATERAL) Additional patient information: Screening. COMPARISON: Comparison is made with relevant prior imaging. Breast composition: The breast tissue is heterogeneously dense which may obscure small masses. FINDINGS: No abnormal masses, suspicious calcifications, or other significant findings are identified mammographically in either breast. Procedure Note Marina Thomas MD - 11/18/2024 BI MAMMOGRAM SCREENING WITH TOMOSYNTHESIS WITH CAD (BILATERAL) Additional patient information: Screening. COMPARISON: Comparison is made with relevant prior imaging. Breast composition: The breast tissue is heterogeneously dense which mayobscure small masses. FINDINGS: No abnormal masses, suspicious calcifications, or other significantfindings are identified mammographically in either breast. IMPRESSION: No mammographic evidence of malignancy in either breast. Annual screening mammography is recommended. BI-RADS 1 NEGATIVE The patient will be notified of the results and recommendations. Sai Rojas MD IMG MG EXAMS Final Result documented in this encounter Visit Diagnoses Diagnosis Breast screening Breast screening, unspecified Breast screening- Primary Breast screening, unspecified documented in this encounter Care Teams Senior Label Specialist Relationship Specialty Start Date End Date Laurie Whitehead NP [address] [place] [address] PCP - General Family Medicine 06/26/22 documented as of this encounter Additional Source Comments The information contained in this document represents components of the legal health record. It is not the complete legal health record.[facility]
--- OUTSIDE RECORDS SUMMARY | 2025-07-29 09:47 | XMS_ITS | Encounter Summary ---
Author Organization [facility] Address [facility] [address] [place] [address] Phone Care Team Providers Care Globe Tester Name Role Phone Will Pineda MD Unavailable [phone] Artur Russell MD Unavailable [phone] Artur Russell MD Primary Care Provider [phone] Unknown, Unknown Primary Care Provider Kaleigh Valles MD Primary Care Provider [phone] Laurie Whitehead NP Primary Care Provider [phone] Encounter Details Date Type Department Care Team (Late st Contact Info) Description 08/04/2017 Ancillary Orders [facility] [address] [place] [address] Artur Russell MD [address] [place] [address] Abnormal findings on diagnostic imaging of breast Social History Tobacco Use Types Packs/Day Years Used Date Smoking Tobacco: Never Assessed Comments Unknown Sex and Gender Information Value Date Recorded Sex Assigned at Not on file Legal Sex Female 10:08 PM EDT Gender Identity Not on file Sexual Orientation Not on file documented as of this encounter Plan of Treatment Not on file documented as of this encounter Visit Diagnoses Diagnosis Abnormal findings on diagnostic imaging of breast Other (abnormal) findings on radiological examination of breast documented in this encounter Care Teams Globe Tester Relationship Specialty Start Date End Date Artur Russell MD [address] [place] [address] PCP - General 08/02/17 12/30/17 Unknown, Unknown, [address] [place] [address] PCP - General 12/31/17 02/24/18 Kaleigh Freed MD [address] [place] [address] PCP - General Internal Medicine 02/25/18 06/25/22 Laurie Whitehead NP [address] [facility] 3 [place] [address] PCP - General Family Medicine 06/26/22 Will Pineda MD [address] [address] Historical LMR Provider 08/01/17 2 Artur Russell MD [address] [place] [address] Historical LMR Provider 08/01/17 2 documented as of this encounter Additional Source Comments The information contained in this document represents components of the legal health record. It is not the complete legal health record.[facility]
--- OUTSIDE RECORDS SUMMARY | 2025-07-29 09:47 | XMS_ITS | Encounter Summary ---
Author Organization [facility] Address [facility] [address] [place] [address] Phone Care Team Providers Care Hand Embroiderer Name Role Phone Will Pineda MD Unavailable [phone] Artur Russell MD Unavailable [phone] Kaleigh Freed MD Primary Care Provider [phone] Laurie Whitehead NP Primary Care Provider [phone] Encounter Details Date Type Department Care Team (Late st Contact Info) Description 04/29/2021 Procedure Pass [address] [address] Social History Tobacco Use Types Packs/Day Years Used Date Smoking Tobacco: Never Smokeless Tobacco: Never Alcohol Use Standard Drinks/Week Comments Never 0 (1 standard drink = 0.6 oz [...] on filedocumented in this encounter Care Teams Hand Embroiderer Relationship Specialty Start Date End Date Kaleigh Freed MD [facility] [place], [place] [id number] PCP - General Internal Medicine 02/25/18 06/25/22 Laurie Whitehead NP [address] [facility] 3 [place] [address] PCP - General Family Medicine 06/26/22 Will Pineda MD [address] [place] [address] Historical LMR Provider 08/01/17 2 Artur Russell MD [address] [place] [address] Historical LMR Provider 08/01/172 2 documented as of this encounter Additional Source Comments The information contained in this document represents components of the legal health record. It is not the complete legal health record.[facility]
--- OUTSIDE RECORDS SUMMARY | 2025-07-29 09:47 | XMS_ITS | Patient Health Record ---
Author Organization [facility] Address [address] [place] [address] Care Team Providers Care Manufacturers Representative Name Role Phone Josue Mckeon N.P. Primary Care Provider Bucky Churchill Unavailable [phone] Diana Gaspar Unavailable Unavailable Allergies No Known Allergies Reason For Referral No Information Medications Medication SIG (Take, Route, Fr equency, Duration) Notes Start Date End Date Status Calcium 500-2.5 MG-MCG 1 tablet with a m eal Orally Once a day; Duration: 30 day(s) 04/28/2025 Active Multi Vitamin - 1 tablet Orally Once a day; Duration: 30 day(s) 04/28/2025 Active Vitamin B-12 100 MCG as directed Orally 04/28/2025 Active Omeprazole 20 MG 1 capsule 1/2 to 1 h our before morning meal Orally Once a day; Duration: 30 day(s) 04/28/2025 Active Aspirin 81 MG 1 tablet Orally Once a day; Duration: 30 day(s) 04/28/2025 Active Famotidine 40 MG 1 tablet Orally Twic e a day for reflux; Duration: 90 days 04/28/2025 Ac tive Immunizations Vaccine Route Administration Date Status Comme [...] Status Risk Notes Problem Gastroesophageal reflux disease (507746771) GERD (gastroesophag eal reflux disease) (K21.9) Active confirmed Problem History of adenomatous polyp of colon (474322742) History of adenomatous polyp of colon (Z86.0101) Active confirmed Vital Signs Temperature 97.5 degrees Fahrenheit 04/28/2025 Blood pressure diastolic 01 mm Hg 04/28/2025 Height 65 in 04/28/2025 Blood pressure systolic 001 mm Hg 04/28/2025 Weight 151.2 lbs 04/28/2025 BMI 25.16 kg/m2 04/28/2025 Encounters Encounter Location Date Provider Diagnosis [facility] [address] [place] [address] 04/28/2025 Bucky Cali GERD (gastroesophage al reflux [...] Date MEDICARE OF [place] [address] [place] [address] [id number] A1 ROBERTA KIRBY Self - patient is the insured 1 [employer] [address] [place] [address] [id number] A1 ROBERTA KIRBY Self - patient is the insured 1 Medical (General) History Medical History History ICD Code Thrombocytosis--Followed by Dr. Hubert [place],DM,CVA,Lung disease,renal dise ase Colon polyps--most recent co lonoscopy was in [address] Shelby; negative colonoscopies in 2000 and 2010 Surgical History Surgery Date(Month/Year) Carpal tunnel bilaterally Gastrocnemius surgery for the Left achil les 2022 Trigger finger release 2017,2018, 2024 Right knee 2018 1985
--- OUTSIDE RECORDS SUMMARY | 2025-07-29 09:47 | XMS_ITS | Encounter Summary ---
Author Organization [facility] Address [address] [place] [address] Phone Care Team Providers Care Onion Farmer Name Role Phone Laurie Whitehead NP Primary Care Provider [phone] Encounter Details Date Type Department Care Team ([facility] Contact Info) Description 06/21/2023 Procedure Pass [facility] - [address] [place] [address] Social History Tobacco Use Types Packs/Day Years [...] on filedocumented in this encounter Care Teams Onion Farmer Relationship Specialty Start Date End Date Laurie Whitehead NP [address] [place] [address] 3 [place] [address] PCP - General Family Medicine 06/26/22 documented as of this encounter Additional Source Comments The information contained in this document represents components of the legal health record. It is not the complete legal health record.[facility]
--- OUTSIDE RECORDS SUMMARY | 2025-07-29 09:47 | XMS_ITS | Encounter Summary ---
Author Organization [facility] Address [address] [place] [address] [place] [address] Phone Care Team Providers Care Postal Carrier Name Role Phone Will Pineda MD Unavailable [phone] Artur Russell MD Unavailable [phone] Kaleigh Freed MD Primary Care Provider [phone] Laurie Whitehead NP Primary Care Provider [phone] Encounter Details Date Type Department Care Team (Late st Contact Info) Description 04/29/2021 Ancillary Orders Virtual Department [address] [place] [address] Kaleigh Freed MD [address] [place] [address] Breast screening Social History Tobacco Use Types [...] MAMMOGRAM SCREENING WITH TOMOSYNTHESIS WITH CAD (BILATERAL) (08/31/2021 11:33 AM EST) Anatomical Region Laterality Modality Breast Left, Breast Right, Breast Bilateral Bila teral Mammography 08/31/2021 3:47 PM EST Impressions 08/31/2021 3:48 PM EST No mammographic change indicative of malignancy. Routine screening is recommended. BI-RADS CATEGORY: 2 - Benign finding. DENSITY: The breast tissue is extremely dense, which lowers the sensitivity of mammography. Narrative 08/31/2021 3:48 PM EST Bilateral full-field digital screening mammography is obtained and read in conjunction with computer-aided detection. Tomosynthesis as well as 2-D C view imaging of both breasts in two planes also obtained. Comparison made to multiple prior, most recent July 16, 2020, and most remote August 02, 2015. No dominant mass, architectural distortion, worrisome asymmetry, or suspicious calcification is identified. No skin or nipple finding of concern is appreciated. Calcifications on the right are stable. Procedure Note Max Welch MD - 08/31/2021 Bilateral full-field digital screening mammography is obtained and read inconjunction with computer-aided detection. Tomosynthesis as well as 2-D Cview imaging of both breasts in two planes also obtained. Comparison madeto multiple prior, most recent July 16, 2020, and most remote 2014. No dominant mass, architectural distortion, worrisome asymmetry, orsuspicious calcification is identified. No skin or nipple finding ofconcern is appreciated. Calcifications on the right are stable. IMPRESSION: No mammographic change indicative of malignancy. Routine screening isrecommended. BI-RADS CATEGORY: 2 - Benign finding. DENSITY: The breast tissue is extremely dense, which lowers thesensitivity of mammography. Kaleigh Freed MD IMG MG EXAMS Final Resu lt documented in this encounter Visit Diagnoses Diagnosis Breast screening Breast screening, unspecified documented in this encounter Care Teams Postal Carrier Relationship Specialty Start Date End Date Kaleigh Freed MD [address] [place] [address] PCP - General Internal Medicine 02/25/18 06/25/22 Laurie Whitehead NP 46 [facility] Floor 3 [place] [address] PCP - General Family Medicine 06/26/22 Will Pineda MD [address] [address] Historical LMR Provider 08/01/17 2 Artur Russell MD [address] [place] [address] Historical LMR Provider 08/01/17 2 documented as of this encounter Additional Source Comments The information contained in this document represents components of the legal health record. It is not the complete legal health record.[facility]
--- OUTSIDE RECORDS SUMMARY | 2025-07-29 09:47 | XMS_ITS | Encounter Summary ---
Author Organization [facility] Address [address] [place] [address] [place] [address] Phone Care Team Providers Care Pmp Name Role Phone Will Pineda MD Unavailable [phone] Artur Russell MD Unavailable [phone] Artur Russell MD Primary Care Provider [phone] Unknown, Unknown Primary Care Provider Kaleigh Valles MD Primary Care Provider [phone] Laurie Whitehead NP Primary Care Provider [phone] Encounter Details Date Type Department Care Team (Late st Contact Info) Description 08/04/2017 Ancillary Orders [facility] [address] [place] [address] Artur Russell MD [address] [place] [address] Follow-up exam, 3-6 months since previous exam Social History Tobacco Use Types Packs/Day Years [...] of this encounter Results * BI MAMMOGRAM DIAGNOSTIC WITH TOMOSYNTHESIS WITH CAD (BILATERAL) (08/27/2017 10:30 AM EST) Anatomical Region Laterality Modality Breast Left, Breast Right, Breast Bilateral Bila teral Mammography 08/27/2017 11:2 2 AM EST Impressions 08/27/2017 11:37 AM EST Stable microcalcifications in the upper outer right breast since 08/22/2016. A six-month follow-up diagnostic mammogram of the right breast with magnification views is recommended in order to establish longer term stability. Screening mammography of the left breast in one year recommended. The results were given to the patient by the technologist at the time of the examination. DENSITY: The breast tissue is heterogeneously dense, an appearance which lowers the sensitivity of mammography. POS - [facility] Narrative 08/27/2017 11:37 AM EST HISTORY: Six month follow-up right breast for microcalcifications, screening of left breast. EXAM: Bilateral full field digital mammography was obtained with computer-aided detection. 2-D and 2-D C view imaging obtained as well as tomosynthesis images in two projections of the both breasts. Spot magnification CC and ML views of right breast included. COMPARISON: Previous mammograms as far back as 06/13/2011 and is recent as 02/22/2017. FINDINGS: The breasts are composed of heterogeneously dense fibroglandular tissue somewhat limiting the sensitivity of mammography. Regionally distributed and a cluster of microcalcifications in the upper outer aspect of the right breast are stable. No evidence of new suspicious microcalcifications. No suspicious masses or evidence of architectural distortion. Artur Russell MD IMG MG EXAMS Final Result documented in this encounter Visit Diagnoses Diagnosis Follow-up exam, 3-6 months since previous exam Unspecified follow-up examination Follow-up exam, 3-6 months since previous exam Unspecified follow-up examination documented in this encounter Care Teams Pmp Relationship Specialty Start Date End Date Artur Russell MD [address] [place] [address] PCP - General 08/02/17 12/30/17 Unknown, Unknown, [address] [place] [address] PCP - General 12/31/17 02/24/18 Kaleigh Freed MD [address] [place] [address] PCP - General Internal Medicine 02/25/18 06/25/22 Laurie Whitehead NP 46 [facility] 3 [place] [address] PCP - General Family Medicine 06/26/22 Will Pineda MD [address] [place] [address] Historical LMR Provider 08/01/17 2 Artur Russell MD [address] [place] [address] Historical LMR Provider 08/01/17 2 documented as of this encounter Additional Source Comments The information contained in this document represents components of the legal health record. It is not the complete legal health record.[facility]
--- OUTSIDE RECORDS SUMMARY | 2025-07-29 09:47 | XMS_ITS | Encounter Summary ---
Author Organization [facility] Address [address] [place] [address] Phone Care Team Providers Care Temporary Staff Accountant Name Role Phone Laurie Whitehead NP Primary Care Provider [phone] Encounter Details Date Type Department Care Team ([facility] Contact Info) Description 06/26/2024 Procedure Pass [facility] - [address] [place] [address] Social History Tobacco Use Types Packs/Day Years [...] on filedocumented in this encounter Care Teams Temporary Staff Accountant Relationship Specialty Start Date End Date Laurie Whitehead NP [address] [place] [address] 3 [place] [address] PCP - General Family Medicine 06/26/22 documented as of this encounter Additional Source Comments The information contained in this document represents components of the legal health record. It is not the complete legal health record.[facility]
--- OUTSIDE RECORDS SUMMARY | 2025-07-29 09:47 | XMS_ITS | Encounter Summary ---
Author Organization [facility] Address [address] [place] [address] [place] [address] Phone Care Team Providers Care Derrick Engineer Name Role Phone Will Pineda MD Unavailable [phone] Artur Russell MD Unavailable [phone] Artur Russell MD Primary Care Provider [phone] Unknown, Unknown Primary Care Provider Kaleigh Valles MD Primary Care Provider [phone] Laurie Whitehead NP Primary Care Provider [phone] Encounter Details Date Type Department Care Team (Late st Contact Info) Description 09/05/2017 Ancillary Orders [facility] [address] [place] [address] Artur Russell MD [address] [place] [address] Social History Tobacco Use Types Packs/Day Years [...] on filedocumented in this encounter Care Teams Derrick Engineer Relationship Specialty Start Date End Date Artur Russell MD [address] [place] [address] PCP - General 08/02/17 12/30/17 Unknown, Unknown, [address] [place] [address] PCP - General 12/31/17 02/24/18 Kaleigh Freed MD [address] [place] [address] PCP - General Internal Medicine 02/25/18 06/25/22 Laurie Whitehead NP 46 [facility] 3 [place] [address] PCP - General Family Medicine 06/26/22 Will Pineda MD [address] [place] [address] Historical LMR Provider 08/01/17 2 Artur Russell MD [address] [place] [address] Historical LMR Provider 08/01/17 1/2 2 documented as of this encounter Additional Source Comments The information contained in this document represents components of the legal health record. It is not the complete legal health record.[facility]
--- OUTSIDE RECORDS SUMMARY | 2025-07-29 09:47 | XMS_ITS | Encounter Summary ---
Author Organization [facility] Address [address] [place] [address] Phone Care Team Providers Care Master Steam Yacht Name Role Phone Laurie Whitehead NP Primary Care Provider [phone] Encounter Details Date Type Department Care Team (Late st Contact Info) Description 06/26/2022 Procedure Pass [address] [place] [address] Social History Tobacco Use Types Packs/Day Years Used Date Smoking Tobacco: Never Smokeless Tobacco: Never Alcohol Use Standard Drinks/Week Comments Not Currently 0 (1 standard drink = 0.6 oz pur e alcohol) No alcohol since 1978 Comments No Sex and Gender Information Value [...] on filedocumented in this encounter Care Teams Master Steam Yacht Relationship Specialty Start Date End Date Laurie Whitehead NP 46 [facility] Floor 3 [place] [address] PCP - General Family Medicine 06/26/22 documented as of this encounter Additional Source Comments The information contained in this document represents components of the legal health record. It is not the complete legal health record.[facility]
--- OUTSIDE RECORDS SUMMARY | 2025-07-29 09:47 | XMS_ITS | Clinical Summary ---
Author Organization [facility] Address [address] [place] [address] Care Team Providers Care Software Project Manager Name Role Phone Kaleigh Freed MD Primary Care Provider [phone] Allergies No known active allergies Medications Medication [...] Take 15 mL by mouth. 0 Active IDO-[id number]-N a Asc-C (Plenvu) 140 g SOLR 0 [...] - 1-dose 75+ series) 2021 COVID-19 Vaccine (3 - 2024-2 6 season) 2025 12/14/2020, 11/23/2020 Influenza Vaccine (#1) 2025 06/15/2020 Pneumococcal Vaccine Completed 10/18/2016, 03/17/2016, 09/25/2015 Shingrix-Zoster Vaccine Completed 01/03/20 19, 07/12/2018 Hepatitis B Vaccines Aged Out No long er eligible based on patient's age to complete this topic RSV Ped < 20 months Aged Out No longe r eligible based on patient's age to complete this topic Care Teams Software Project Manager Relationship Specialty Start Date End Date Kaleigh Freed MD [address] [place] [id number] PCP - General Internal Medicine 07/29/18
--- OUTSIDE RECORDS SUMMARY | 2025-07-29 09:47 | XMS_ITS | Encounter Summary ---
Author Organization [facility] Address [facility] [address] [place] [address] Phone Care Team Providers Care Bacon Slicer Name Role Phone Will Pineda MD Unavailable [phone] Artur Russell MD Unavailable [phone] Kaleigh Freed MD Primary Care Provider [phone] Laurie Whitehead NP Primary Care Provider [phone] Encounter Details Date Type Department Care Team (Late st Contact Info) Description 06/16/2020 Procedure Pass [address] [id number] Social History Tobacco Use Types Packs/Day Years [...] on filedocumented in this encounter Care Teams Bacon Slicer Relationship Specialty Start Date End Date Kaleigh Freed MD [facility] [place], [place] [id number] PCP - General Internal Medicine 02/25/18 06/25/22 Laurie Whitehead NP 46 [facility] 3 [place] [address] PCP - General Family Medicine 06/26/22 Will Pineda MD [address] [place] [address] Historical LMR Provider 08/01/17 2 Artur Russell MD [address] [place] [address] Historical LMR Provider 08/01/172 2 documented as of this encounter Additional Source Comments The information contained in this document represents components of the legal health record. It is not the complete legal health record.[facility]
--- OUTSIDE RECORDS SUMMARY | 2025-07-29 09:47 | XMS_ITS | Encounter Summary ---
Author Organization [facility] Address [address] [facility] [address] [place] [address] Phone Care Team Providers Care Columnist Name Role Phone Laurie Whitehead NP Primary Care Provider [phone] Encounter Details Date Type Department Care Team ([facility] Contact Info) Description 11/17/2024 Ancillary Orders [facility] [address] [place] [address] Sai Rojas MD 22 [facility], [address] [place] [address] [email or web address] Breast screening (Primary Dx) Social History Tobacco [...] as of this encounter Visit Diagnoses Diagnosis Breast screening- Primary Breast screening, unspecified documented in this encounter Care Teams Columnist Relationship Specialty Start Date End Date Laurie Whitehead NP 46 [facility] 3 [place] [address] PCP - General Family Medicine 06/26/22 documented as of this encounter Additional Source Comments The information contained in this document represents components of the legal health record. It is not the complete legal health record.[facility]
--- OUTSIDE RECORDS SUMMARY | 2025-07-29 09:47 | XMS_ITS | Clinical Summary ---
Author Organization [facility] Address [address] [place] [address] Phone Care Team Providers Care Executive Legal Secretary Name Role Phone Laurie Whitehead NP Primary Care Provider [phone] Allergies No known active allergies Medications naproxen (NAPROSYN) 250 MG tablet Take 1 tablet by mouth 2 (two) times a day. Active aspirin (ASPIR-81) 81 MG EC tablet Take 81 mg by mouth daily. Active jjhchjib-hiuc-ny rrous gluconat (CENTRUM WITH IRON) 9 mg iron/15 mL Liqd Take 15 mL by mouth daily. Active Ca cit-D3-mag#11-zi kf-byfl-ojd-bor (CALTRATE 600+D) 600 mg calcium- 800 unit-50 mg Tab Take 1 tablet by mouth daily. Active cyanocobalamin, vitamin B-12, (VITAMIN B-12 ORAL) Take by mouth. Active valACYclovir (VALTREX) 1000 MG tablet 08/27/2020 Active Active Problems Problem Noted Date Diagnosed Date Acute lateral meniscus tear of right knee 2017 Immunizations Immunization Administration Dates Next Due COVID-19 (Pre-08/06) Pfizer Vaccine, mRNA, PF ,11/23/2020 Influenza Quadrivalent Adjuvanted Preservative F ree IM 06/15/2020 Pneumococcal conjugate PCV13 03/17/2016,09/25/20 15 Pneumococcal polysaccharide PPSV23 10/18/2016 Zoster recombinant 01/02/2019,07/12/2018 Family History Medical History Relation Comments No Known Problems Daughter Multiple myeloma Father No Known Problems Maternal Grandfather Other Maternal Grandmother childbirth Hypertension Mother Cirrhosis Paternal Grandfather No Known Problems Paternal Grandmother Ovarian cancer Sister 1 Breast cancer Neg Hx Relation Status Comments Daughter Father Maternal Grandfather Maternal Grandmother Mother Paternal Grandfather Paternal Grandmother Sister 1 Alive Sister 2 Alive Social History Tobacco Use Types Packs/Day Years Used Date Smoking Tobacco: Never Smokeless Tobacco: Never Tobacco Cessation:Counseling Given: Not Answered Alcohol Use Standard Drinks/Week Comments Not Currently [...] Sign Reading Time Taken Comments Blood Pressure 128/84 09/03/2024 8:53 AM EST Pulse - - Temperature - - Respiratory Rate - - Oxygen Saturation - - Inhaled Oxygen Concentration - - Weight 67.1 kg (148 lb) 09/03/2024 8:53 AM EST Height 163.8 cm (5' 4.5 ) 09/03/2024 8:53 AM EST Body Mass Index 25.01 09/03/2024 8:53 AM EST Plan of Treatment Health Maintenance Due Date Last Done Comments LIPID PANEL 1946 DEPRESSION SCREENING 1958 HEPATITIS C SCREENING 1964 RSV VACCINE (1 - 1-dose 75+ series) 2021 INFLUENZA VACCINE (#1) 2025 , 08/07/2023, 07/17/2022, Additional history exists COVID-19 VACCINE (2024- season) 2025 07/08/2024, 08/07/2023, 07/17/2022, Additional history exists Adult Td,Tdap Booster 10/28/2029 10/28/2019, 019 PNEUMOCOCCAL VACCINES (50+ years) Completed 10/18/2016, 03/17/2016, 09/25/2015 ZOSTER VACCINES Completed 01/02/2019, 07/12/2018 OSTEOPOROSIS SCREENING INITIAL (ONE-TIME) Completed 07/16/2020 SMOKING STATUS SCREENING (Once After 26 Yrs) Completed 11/17/2024 HEPATITIS A VACCINES Aged Out No long er eligible based on patient's age to complete this topic HIB VACCINES Aged Out No longer eligi ble based on patient's age to complete this topic MENINGOCOCCAL VACCINES (ACWY) Aged Out No longer eligible based on patient's age to complete this topic MENINGOCOCCAL VACCINES (B) Aged Out N o longer eligible based on patient's age to complete this topic Medical Devices Not on file Procedures Procedure Name Priority Date/Time Associated Diagnosis Comments BD DXA AXIAL (SPINE) WITH HIP Routine 07/16/2020 10:51 AM EDT Menopause Loss of height from Last 3 Months or Most Recently Relevant to Health Maintenance Results * BD DXA AXIAL (SPINE) WITH HIP (07/16/2020 10:51 AM EDT) Anatomical Region Laterality Modality Bone Density Bone Density 07/16/2020 7:22 PM EDT Impressions 07/16/2020 7:25 PM EDT Bone mineral density within normal limits. Statistically significant bone mineral density loss at both hips and statistically significant bone mineral density gain in the spine compared with 04/29/2004. POS -[id number] Narrative 07/16/2020 7:25 PM EDT This is a 75-year-old postmenopausal female presenting for a screening exam. Compared with report from study dated 04/29/2004. Evaluation of the lumbar spine and both hips is obtained and appears technically adequate. The lumbar spine from L1 through L4 discloses a total bone mineral density of 1.117 g/cm2 with a T-score of 0.6. This is in the normal range. This represents a statistically significant bone mineral density change of 10.0% compared with 04/29/2004. The right (total) hip has a total bone mineral density of 0.843 g/cm2 with a T- score of -0.8. This is in the normal range. This represents a statistically significant bone mineral density change of - 13.2% compared with 04/29/2004. The right hip (neck) has a total bone mineral density of 0.721 g/cm2 with a T- score of -1.2. The left hip (total) has a total bone mineral density of 0.843 g/cm2 for a T- score of -0.8. This is in the normal range. This represents a statistically significant bone mineral density change of -14.1% compared with 04/29/2004. The left hip (neck) has a total bone mineral density of 0.746 g/cm2 with a T- score of -0.9. Lateral instant vertebral imaging is not performed. Procedure Note Kristian Ching MD - 07/16/2020 This is a 75-year-old postmenopausal female presenting for a screeningexam. Compared with report from study dated 04/29/2004. Evaluation of the lumbar spine and both hips is obtained and appearstechnically adequate. The lumbar spine from L1 through L4 discloses a total bone mineral densityof 1.117 g/cm2 with a T-score of 0.6. This is in the normal range. Thisrepresents a statistically significant bone mineral density change of10.0% compared with 04/29/2004. The right (total) hip has a total bone mineral density of 0.843 g/cm2 witha T- score of -0.8. This is in the normal range. This represents astatistically significant bone mineral density change of -13.2% comparedwith 04/29/2004. The right hip (neck) has a total bone mineral density of 0.721 g/cm2 witha T- score of -1.2. The left hip (total) has a total bone mineral density of 0.843 g/cm2 for aT- score of -0.8. This is in the normal range. This represents astatistically significant bone mineral density change of -14.1% comparedwith 04/29/2004. The left hip (neck) has a total bone mineral density of 0.746 g/cm2 with aT- score of -0.9. Lateral instant vertebral imaging is not performed. IMPRESSION: Bone mineral density within normal limits. Statistically significant bonemineral density loss at both hips and statistically significant bonemineral density gain in the spine compared with 04/29/2004. POS -[id number] Sai CLAUDIO BD BONE DENSITY DEXA Final R esult from Last 3 Months or Most Recently Relevant to Health Maintenance Insurance MEDICARE PART A & B [employer] MEDICARE SUPPLEMENT MEDICARE PART A & B Member Subscriber Plan / Payer ( fective 2011-Present) Name:Roberta Fitzpatrick Member ID:[id number] Relation to Subscriber:Self Name:Roberta Fitzpatrick Subscriber ID:[id number] Payer ID:[id number] Group ID:Not on file Type:Medicare Address: [employer] [address] [place] [id number] FOR LIFE MEDICARE SUPPLEMENT Member Subscriber Plan / Payer ( fective 2017-Present) Name:Roberta Fitzpatrick Relation to Subscriber:Self Name:Roberta Fitzpatrick Payer ID:[id number] (NAIC) Group ID:Not on file Type:O Address: [place] [phone] MEDICARE PART A & B [facility] FOR LIFE MEDICARE SUPPLEMENT MEDICARE PART A & B FOR LIFE MEDICARE SUPPLEMENT Member Subscriber Plan / Payer ( fective 2017-Present) Name:Roberta Fitzpatrick Relation to Subscriber:Self Name:Roberta Fitzpatrick Payer ID:[id number] (NAIC) Group ID:Not on file Type:O Address: [place] [phone] MEDICARE PART A & B [facility] FOR LIFE MEDICARE SUPPLEMENT MEDICARE PART A & B FOR LIFE MEDICARE SUPPLEMENT MEDICARE PART A & B FOR LIFE MEDICARE SUPPLEMENT MEDICARE PART A & B [employer] MEDICARE SUPPLEMENT MEDICARE PART A & B [employer] MEDICARE SUPPLEMENT Care Teams Executive Legal Secretary Relationship Specialty Start Date End Date Laurie Whitehaed NP [address] [facility] [address] [place] [address] PCP - General Family Medicine 06/26/22 Additional Source Comments The information contained in this document represents components of the legal health record. It is not the complete legal health record.[facility]
[2025-07-29 10:52] LABS: Cholesterol 205 mg/dL (<200); HDL Cholesterol 55 mg/dL (>40); Triglycerides 119 mg/dL (<150)
== END 2025-07-29 09:00 | disposition home or self-care (01) ==
LOC: HO.HMGCLDS 08:59
PROVIDERS: PCP Nurse Practitioner Family; Visit Provider Nurse Practitioner Family
DX: E78.00 Pure hypercholesterolemia, unspecified (principal)
CPT/HCPCS: 36415; 80061

== ENCOUNTER 2025-08-03 15:19 | Outpatient (AMB) | payer MEDICARE, OTHER, SELFPAY ==
--- NOTE | 2025-08-03 15:21 | A.OFFPC_ITS ---
Vital Signs 08/03/25 15:26 08/03/25 15:49 Height 5 ft 5 in Weight 153 lb 2 oz BMI 25.5 BP 148/63 H 126/60 Blood Pressure Location Rt brachial Rt brachial Position Sitting Sitting Respiration 16 Pulse 63 Pulse Source Pulse Oximeter Temp 98.0 F Temp Source Oral Pulse Oximetry (%) 95 Oxygen Delivery Method Room Air Intake Visit Reasons: Tele 2 mos hyperlipidemia Intake Note: patient here for 2 month follow up on hyperlipidemia Design Drafter Required: No Is last menstrual period known: No Post menopausal: No Patient : No Allergies Seasonal Allergies Allergy (Verified 08/03/25 15:25) Sneezing Tobacco use date assessed: 08/03/25 Fall risk assessment: No Falls in past year Last assessed Fall Risk: 08/03/25 Dental Screening Dental Screen Date: 08/03/25 Did you have a dental visit in the last 12 months?: Yes Did you have a dental problem in the last 6 months where you did not have access to dental care?: No Was dental information given to patient?: Patient has dentist HPI HPI Comments History of Present Illness Details 80-year-old female presents for hyperlip idemia follow-up. She admits to taking her medications as prescribed without adverse reactions. She notes that she has been making healthy lifestyle changes. She offers no complaints and denies acute symptoms at this time. COUNT INCLUDES THE [facility] Medical History (Updated 05/13/25 @ 10:15 by Diana Gaspar MD) Trigger ring finger of right hand Eczema Arthritis Sinusitis Surgical History History of hand surgery History of carpal tunnel surgery of right wrist History of carpal tunnel surgery of left wrist H/O lateral meniscus repair of right knee H/O lateral meniscus repair of left knee H/O: Family History Paternal Grandfather Alcohol abuse Paternal Grandmother FH: mental illness Mother High blood pressure Cardiovascular disease Family/Other No problems noted. Father Multiple myeloma Sister Cancer Social History (Updated 05/19/25 @ 13:19 by Yuli Sheikh MA) Household Members: Spouse Housing: Apartment Alcohol intake: never Comment: counts correct Patient Tobacco Use Status: Never used Tobacco e-Cigarette/Vaping Use: Never Used Second Hand Smoke Exposure: No Patient : No service: No Current occupational status: retired Current occupational exposures/hazards: No Cognitive needs: No Hearing needs: No Vision needs: Yes Questionnaire Thrive Questionnaire Date Thrive assessed: 12/19/24 I am a: Patient What is your living situation today?: I have a steady place to live Within the past 12 months, did the food you bought not last and you didn't have the money to get more?: Never true Within the past 12 months, did you worry whether your food would run out before you got money to buy more?: Never true Do you have trouble paying for medicines?: No Do you have trouble getting transportation to medical appointments?: No Do you have trouble paying your heating and electricity bill?: No Do you have trouble taking care of your child, family member or friend?: No Do you have trouble with day-to-day activities such as bathing, preparing meals, shopping, managing finances, etc.?: No Are you currently unemployed and looking for a job?: No Are you interested in more education?: No Please select the resources that you would like help with: None Currently or been in a relationship where the following occur: No concerns reported THRIVE Score: 0 LANDON-7 AMB Questionnaire LANDON-7 Date LANDON - 7 assessed: 12/19/24 Source: Developed by Drs. Bucky Adler, Shu Henderson, Checo Egan and colleagues, with an educational khanh from [employer]. Review of Systems Const Details: Const Denies chills, Denies fatigue, Denies fever(s), Denies headache(s) and Denies weakness ENT Denies dizziness and Denies headache(s) Card Denies chest pain, Denies lightheadedness, Denies dyspnea and Denies other (Palpitations) Resp Denies cough, Denies dyspnea, Denies wheezing and Denies other ( shortness of breath) GI Denies abdominal pain, Denies melena, Denies hematochezia, Denies change in bowel habits, Denies dyspepsia and Denies nausea Denies hematuria and Denies dysuria Musc Denies abnormal gait, Denies myalgias, Denies arthralgias, Denies numbness and Denies tingling Skin/Breast Denies rash, Denies unusual bruising and Denies wounds Neuro Denies abnormal gait, Denies dizziness, Denies headache(s), Denies memory loss, Denies numbness, Denies Sensory deficit (Neuro), Denies tingling and Denies weakness Psych Denies anxiety, Denies depression, Denies memory loss Endo Denies cold intolerance, Denies fatigue, Denies heat intolerance, Denies polydipsia and Denies polyuria Aller/Immun Denies wheezing Physical exam (Primary Care) Vital Signs: Last Vital Signs Temp 98.0 F 08/03/25 15: Pulse 63 08/03/25 15:26 Resp 16 08/03/25 15:26 BP 148/63 H 08/03/25 15:26 Pulse Ox 95 08/03/25 15:26 Oxygen Delivery Method Room Air 08/03/25 15:26 BMI result Body Mass Index 25.5 Tobacco/Smoking Status: Tobacco use Status Tobacco use date assessed 08/03/25 08/03/25 15:28 Patient Tobacco Use Status Never used Tobacco 08/03/25 15:28 e-Cigarette/Vaping Use Never Used 08/03/25 15:28 Thrive Assessment: Date of Thrive Assessment Date Thrive assessed 12/19/24 08/03/25 15:28 Currently or been in a relationship where the following occur: No concerns r eported Const Other: General: no acute distress and well developed Nutritional Appearance: well nourished Orientation/consciousness: patient oriented x3 HENMT Head: Yes normocephalic and Yes atraumatic Eyes General: appearance normal, both eyes and all related structures Pupils: Equal, round and reactive pupils present EOM: EOMs intact bilaterally Resp Effort & Inspection: normal respiratory effort Auscultation: clear to auscultation bilaterally Cardio Rate: regular rate Rhythm: regular rhythm Heart sounds: S1 normal heart sound present, S2 normal heart sound present, no gallops, no murmurs and no rubs GI Palpation (GI): No Abdominal aortic bruit present, Soft to palpation, nontender, No hepatosplenomegaly present and No Rebound tenderness present Auscultation: normal bowel sounds General: Yes no CVA tenderness Back/Spine/Pelvis Back: no CVA tenderness Cervical Spine: cervical ROM normal and No Cervical spine tenderness Thoracic/Lumbar Spine: thoraco-lumbar ROM normal, No pain with thoraco-lumbar ROM, No thoracic spinal tenderness and No lumbar spinal tenderness Extrem General: Yes normal to inspection, No edema and No calf tenderness Skin General: warm and dry. Normal skin color. Normal skin turgor Neuro General: patient oriented x3, gait normal and no focal neuro deficit Cranial nerves: Yes Equal, round and reactive pupils present Cognition (Neuro): normal cognition Gait exam (Neuro): Normal gait present Sensory Exam: No Sensory deficit (Neuro) Psych Appearance: grossly normal Affect: normal affect Attitude: cooperative Thought process: Normal thought process present Coding Level of Care Code Est Pt Level 3 (89242) Diagnoses Hypercholesterolemia E78.00 Assessment & Plan Assessment & Plan (1) Hypercholesterolemia: Code(s): E78.00 - Pure hypercholesterolemia, unspecified Category: Medical Plan: Recent total cholesterol and LDL levels are slightly elevated, 205 and 127 respectively, previous levels were 219 and 138 respectively, triglycerides and HDL levels are normal. Continue current treatment regimen. Healthy diet and routine exercise encouraged. Her form lipid panel blood work a few days before next visit. Follow-up in 2 months. Return sooner with symptoms or concerns. Verbalized understanding and agreed with the plan. Orders: Orders Lipid Panel 2 Months E78.00 - Pure hypercholesterolemia, unspecified
[2025-08-03 15:26] VITALS: BP 148/63; PULSE 63; RESP 16; TEMP 36.7; O2SAT 95; BMI 25.5
[2025-08-03 15:49] VITALS: BP 126/60
--- OUTSIDE RECORDS SUMMARY | 2025-08-03 19:31 | XMS_ITS | Data Portability ---
Author Organization [place] [facility] Augusto Marrero [place] Address [address] [place] [address] Assessment Encounter Date Assessment Date Assessment LastModified [...] more view 2024 025 [email or web address] [facility], [address], [place], [address], 5 11:27:11 XR, knee, 4 or more view 2022 023 [facility], [address], [place], [address], 3 15:02:12 Medication Orders Marcaine (PF) 0.5 % (5 mg/mL) injection solution 2024 025 [email or web address] [facility]/Pharmacy #[id number], [address] [place], [address], 5 11:27:11 lidocaine (PF) 100 mg/5 mL (2 %) injection syringe [email or web address]/Pharmacy #7111, [address] [place], [address], 5 11:27:11 triamcinolo ne acetonide 40 mg/mL suspension for injection [address]/Pharmacy #7111, [address] [place], [address], 5 11:27:11 Kenalog 40 mg/mL suspension for injection 2022 023 [email or web address] [address] [place], [address], 5 11:06:53 lidocaine (PF) 10 mg/mL (1 %) injection solution 2022 023 [email or web address] [facility]/Pharmacy #7111, [address] [place], [address], 5 11:06:56 Patient TargetsNo targets recorded. Patient [...] following the injection. This is called a f lare . To help minimize the chances of [...] patellofemoral compartment Not available 05/15/2023 13:51:53 11/13/2024 [id number] view X-ray salud dy obtained during [...] Name and Address Organization Details Recorded Time Injury of right knee 21888384574 820878 Active 2017 Right knee injury Not Available [facility] 5 23:04:09 Acute tear of lateral meniscus of right knee 56926997233 913064 Active 2017 Acute lateral meniscus tear of right knee Not Available [facility] 5 23:04:09 Surgical follow-up 423705593 Active 2017 Postopera tive follow-up Not Available [facility] 5 23:04:10 Arthritis of right knee joint 44404698032 46300 Active 2021 Arthritis of knee, right Not Available [facility] 5 23:04:08 Osteoarth ritis of right knee joint 00343453007 9100 Active 2022 IJEOMA HARRIS PA-C [address], [place], [address] , [place] [facility], P 3 12:36:03 Osteoarth ritis of left knee joint 56506734614 9109 Active 2022 IJEOMA HARRIS PA-C [address], [place], [address] , [place] [facility], P 3 12:36:07 Problem Notes None recorded. Procedures Surgical History Date Name Laterality Status Provider Name and Address Organization Details Recorded Time 5 MJG Knee injection w/US completed IJEOMA JIN PA-C [address] [facility],[address], [place], [address], [place] [facility], P 11/13/2024 11:29:16 3 Knee Joint/Bursa Asp & Inj completed IJEOMA HARRIS PA-C [address] [facility],[address], [place], [address], [place] [facility], P 05/15/2023 12:33:43 Imaging Results None recorded. [...] completed Not Available Not Available Not Available prednisone 20 mg tablet Take 3 tabs for 3 days then take 2 tabs for 3 days then take 1 tab for 3 days 2020 active Not Available Not Available Not Avai lable alclometaso ne 0.05 % topical cream 2019 active Not Available Not Available Not Avai lable naproxen 250 mg tablet Take 1 tablet by mouth. active Not Available Not Available No t Available aspirin 81 mg tablet,kaiden yed release Take 81 mg by mouth. active Not Available Not Available No t Available amoxicillin 875 mg tablet TAKE 1 TABLET BY MOUTH TWICE A DAY DIRECTED UNTIL FINISHED START 1 DAY BEFORE SURGERY 11/13 completed Not Available Not Available Not Available triamcinolo ne acetonide 40 mg/mL suspension for injection Take 40 mg by injection route. 2024 active Not Available Not Available Not Avai lable methylpredn isolone acetate 40 mg/mL suspension for injection 08/08 completed Not Available Not Available Not Available fluocinonid e 0.05 % topical cream APPLY [...] Updated DateTime 11/13/2024 165.1 cm 23.1 kg/m2 [address]89.[address] [place] [facility], 11/13/2024 11:07:30 Date Recorded Body height Body mass index (BMI) Body weight Provider Name and Address Organization Details Last Updated DateTime 05/15/2023 165.1 cm 23.1 kg/m2 [address]4872.[address] [place] [facility], 05/15/2023 15:51:48 Social History None recorded. Functional [...] Time Father Family history of malignant neoplasm [email or web address] Not available 2022 16:01:54 Sister Family history of malignant neoplasm [email or web address] Not available 2022 16:01:54 Mother Heart disease [...] Anemia N Brain Injury N Heart Attack (DE) N Osteopenia N Diabetes N Bleeding Disorder [...] Diagnosis SNOMED-CT Code Diagnosis ICD10 Code Diagnosis IMO Codes Diagnosis Note [id number] [address] 05/15/2023 13:07:34 05/15/2023 13:51:24 Pain of right knee joint 0915291364 21463 M25.561 Osteoarthr itis of right knee joint 8242623943 57605 M17.11 [id number] EULALIA SUTTON [facility] [address] [facility] [address] [place] [address] 11/13/2024 10:49:28 11/13/2024 11:26:25 Osteoarthritis of right knee joint 6420027860 73418 M17.11 Health Concerns Section Related Observation LastModified by Organization Detai ls LastModified Time None Recorded Concern Status LastModified by Organization Details LastModified Time None Recorded Advance Directives Directive None Recorded Payers Insurance Date Sequence Insurance Name Policy Number Policy Montano Covered Member ID Montano Member ID Guarantor Name 02/09/2025 2 FOR LIFE () Roberta Amari [id number] Roberta Fitzpatrick 02/09/2025 1 MEDICARE [place]: [employer] Roberta Aniya Amari [id number] Roberta Fitzpatrick Notes Date Note Type Note Provider Name and Address Organization Details Recorded Time 05/15/2023 text/html BL knees. cortisone 10/28/21last x-rays 2 view right knee 10/28/2021 with mild to moderate degenerative joint disease and chondrocalcinosis without acute bony abnormality. Patient states she had updated x-rays at [facility] recently ordered by her primary care [...] the knee joints. IJEOMA HARRIS PA-C [address] [facility] [address], [place], [address], [place] [facility], P 05/15/2023 13:52:59 11/13/2024 text/html 79-year-old female presents with chief complaint of right knee [...] injury, accident or trauma. IJEOMA JIN PA-C [address] [place] [address], [place], [address], [place] [facility], P 11/13/2024 11:31:05 OBGyn Episode No OBEpisode recorded.
--- OUTSIDE RECORDS SUMMARY | 2025-08-03 19:31 | XMS_ITS | Clinical Summary ---
Author Organization [facility] Address [address] [place] [address] Care Team Providers Care Wafer Substrate Tester Name Role Phone Kaleigh Freed MD Primary Care Provider [phone] Allergies No known active allergies Medications Medication [...] Take 15 mL by mouth. 0 Active ONW-IGf-HhHt-NaSulf-N a Asc-C (Plenvu) 140 g SOLR 0 [...] age to complete this topic Care Teams Wafer Substrate Tester Relationship Specialty Start Date End Date Kaleigh Freed MD [address] [place] [phone] PCP - General Internal Medicine 07/29/18
--- OUTSIDE RECORDS SUMMARY | 2025-08-03 19:31 | XMS_ITS | Patient Health Record ---
Author Organization [facility] Address [address] [place] [address] Care Team Providers Care Box Truck Driver Name Role Phone Josue Mckeon N.P. Primary Care Provider Bucky Churchill Unavailable [phone] Diana Gaspar Unavailable Unavailable Allergies No Known [...] Status Risk Notes Problem Gastroesophageal reflux disease (944834293) GERD (gastroesophag eal reflux disease) (K21.9) Active confirmed Problem History of adenomatous polyp of colon (394035090) History of adenomatous polyp of colon (Z86.0101) Active confirmed Vital Signs Temperature 97.5 degrees Fahrenheit 04/28/2025 Blood pressure diastolic 01 mm Hg 04/28/2025 Height 65 in 04/28/2025 Blood pressure systolic 001 mm Hg 04/28/2025 Weight 151.2 lbs 04/28/2025 BMI 25.16 kg/m2 04/28/2025 Encounters Encounter Location Date Provider Diagnosis [facility] [address] [place] [address] 04/28/2025 Bucky Cali GERD (gastroesophage al reflux [...] Date MEDICARE OF [place] [address] [place] [address] [id number] [id number] ROBERTA KIRBY Self - patient is the insured 1 [employer] [address] [place] [address] [id number] ROBERTA KIRBY Self - patient is the insured 1 Medical (General) History Medical History History ICD Code Thrombocytosis--Followed by Dr. Hubert Blackwellies [place],DM,CVA,Lung disease,renal dise ase Colon polyps--most recent co lonoscopy was in [address] Shelby; negative colonoscopies in 2000 and 2010 Surgical History Surgery Date(Month/Year) Carpal tunnel bilaterally Gastrocnemius surgery for the Left achil les 2022 Trigger finger release 2017,2018, 2024 Right knee 2018 1985
== END 2025-08-03 15:49 | disposition home or self-care (01) ==
LOC: HO.HMCFM 15:19
PROVIDERS: PCP Nurse Practitioner Family; Visit Provider Nurse Practitioner Family
DX: E78.00 Pure hypercholesterolemia, unspecified (principal)

== ENCOUNTER → 2025-08-03 15:19 | Outpatient (BNVA) | payer MEDICARE, OTHER, SELFPAY | PROVIDERS: PCP Nurse Practitioner Family; Visit Provider Nurse Practitioner Family | DX: E78.00 Pure hypercholesterolemia, unspecified (principal) | CPT/HCPCS: 99212 ==

== ENCOUNTER 2025-09-24 09:14 | Outpatient (REF) | payer MEDICARE, OTHER, SELFPAY ==
[2025-09-24 10:58] LABS: Cholesterol 187 mg/dL (<200); HDL Cholesterol 66 mg/dL (>40); Triglycerides 104 mg/dL (<150)
== END 2025-09-24 09:15 ==
LOC: HO.HMGCLDS 09:14
PROVIDERS: PCP Nurse Practitioner Family; Visit Provider Nurse Practitioner Family
DX: E78.00 Pure hypercholesterolemia, unspecified (principal)
CPT/HCPCS: 36415; 80061

== ENCOUNTER 2025-10-02 17:07 | Outpatient (REF) | payer MEDICARE, OTHER, SELFPAY ==
--- OUTSIDE RECORDS SUMMARY | 2025-10-02 17:10 | XMS_ITS | Continuity of Care Document ---
Author Organization [place] [facility] Address [address] [facility] [address] [place] [address] Assessment Encounter Date Assessment Date Assessment LastModified by Organization Details LastModified Time 09/08/2025 09/08/2025 80-year-old female with left knee pain. History, examination and x-rays are consistent with advanced osteoarthritis . After discussion regarding treatment options she wishes to proceed with cortisone injection today. Follow-up with me in 3 months. This patient was seen and evaluated by Ijeoma Jin MS, EULALIA in direct or indirect conjunction with documenting/ambrocio pervising provider Sampson Sarmiento MD. He was present in the office or available for consultation. He has reviewed and agrees with the history, physical examination, tests/diagnost ic imaging, and treatment plan. This document was generated using voice recognition software. As a result, there may be unintended spelling, grammatical and/or textual errors. Not available 09/08/2025 15:27:50 Plan of Treatment Reminders Order Date Submit Date Provider Last Modified By Organization Details Last Modified Time Details Appointments FOLLOW UP 2025 09:15A M IJEOMA JIN PA-C Not available Not available Not available Lab None recorded. Referral None recorded. Procedures None recorded. Surgeries None recorded. Imaging XR, knee, 4 or more view 2024 025 [email or web address] [facility], [address], [place], [address], 09/08/2025 15:27:58 Medication Orders Marcaine (PF) 0.5 % (5 mg/mL) injection solution 2024 [id number], [address] [place], [address], 09/08/2025 15:29:54 lidocaine (PF) 100 mg/5 mL (2 %) injection syringe [address], [address] [place], [address], 09/08/2025 15:29:54 triamcino lone acetonide 40 mg/mL suspensio n for injection [id number], [address] [place], [address], 09/08/2025 15:29:54 Patient TargetsNo targets recorded. Patient Instructions Encounter Date Encounter Id Patient Instructions Last Modified By Organization Details Last Modified Time 09/08/2025 [id number] 7 view X-ray salud dy obtained during today's office encounter show evidence of severe left knee osteoarthritis. There is joint space narrowing, subchondral sclerosis and marginal osteophytosis. Kellgren-Akbar grade 4. No evidence of acute fracture or osteolytic findings. These x-rays are compared to a study done on November 13, 2024 and show a mild amount of progression of osteoarthritis as evidenced by further collapse of the lateral joint compartment. Not available 09/08/2025 15:14:02 Reason for Referral None Reported. Problems Name Problem SNOMED Code Status Onset Date Resolution Date Notes Provider Name and Address Organization Details Recorded Time Injury of right knee 59978004724 601063 Active 2017 Right knee injury Not Available [facility] 5 23:04:09 Acute tear of lateral meniscus of right knee 86566330878 035742 Active 2017 Acute lateral meniscus tear of right knee Not Available [facility] 5 23:04:09 Surgical follow-up 865409311 Active 2017 Postopera tive follow-up Not Available [facility] 5 23:04:10 Arthritis of right knee joint 42405344444 43874 Active 2021 Arthritis of knee, right Not Available [facility] 5 23:04:08 Osteoarth ritis of right knee joint 96587153468 9100 Active 2022 IJEOMA HARRIS PA-C [address], [place], [address] , [place] [facility] 3 12:36:03 Osteoarth ritis of left knee joint 35484491824 9109 Active 2022 IJEOMA HARRIS PA-C [address], [place], [address] , [place] [facility] 3 12:36:07 Problem Notes None recorded. Procedures Surgical History Date Name Laterality Status Provider Name and Address Organization Details Recorded Time 5 MJG Knee injection w/US completed IJEOMA JIN PA-C [address], [place], [address], [place] [facility] 09/08/2025 15:13:07 5 MJG Knee injection w/US completed IJEOMA JIN PA-C [address], [place], [address], [place] [facility] 11/13/2024 11:29:16 3 Knee Joint/Bursa Asp & Inj completed IJEOMA HARRIS PA-C [address], [place], [address], [place] [facility] 05/15/2023 12:33:43 Imaging Results None recorded. [...] completed Not Available Not Available Not Available ezetimibe 10 mg tablet TAKE 1 TABLET BY MOUTH EVERY DAY active Not Available Not Available No t Available Marcaine (PF) 0.5 % (5 mg/mL) [...] Available Not Available No t Available Vitals None Recorded Social History None recorded. Functional Status Question Answer Note LastModified by Organizat ion Details LastModified Time Do you use any illicit or recreational drugs? No Information not available 05/15/2023 Do you or have you ever used any other forms of tobacco or nicotine? No Information not available 05/15/2023 What is your level of alcohol consumption? None ries5 Information not available 05/15/2023 Mental Status None [...] Artery Disease N Gout N Hyperthyroidism N Blood Transfusion N MRSA N Emphysema N Depression N COPD N [...] Anemia N Brain Injury N Heart Attack (HI) N Osteopenia N Diabetes N Bleeding Disorder [...] ICD10 Code Diagnosis IMO Codes Diagnosis Note [id number] IJEOMA JIN PA-C ANGELICA Topsham [address] [facility] [address] [place] [address] 09/08/2025 14:48:09 09/08/2025 15:27:58 Pain of left knee joint 7373913301 82609 M25.562 [id number] Health Concerns Section Related Observation LastModified by Organization Detai ls LastModified Time None Recorded Concern Status LastModified by Organization Details LastModified Time None Recorded Payers Encounter Date Sequence Insurance Name Policy Number Policy Montano Covered Member ID Montano Member ID Guarantor Name 09/08/2025 1 MEDICARE B-CT: NGS Roberta Fitzpatrick [id number] Roberta Amari 09/08/2025 2 FOR LIFE () Roberta Fitzpatrick [id number] Roberta Fitzpatrick Notes Date Note Type Note Provider Name and Address Organization Details Recorded Time 09/08/2025 text/html [id number] female presents for evaluation of left knee pain. She reports the onset of her symptoms approximately 3 weeks ago. There was no specific injury, accident or trauma. She reports that it is progressively worsened. She has tried Lanelle. She has known osteoarthritis of the left knee. She reports having had an arthroscopy for the treatment of torn meniscus in estimated 10 years ago. She denies a history of injection to the left knee. Her pain is diffusely across the anterior aspect of the joint. There is no report of any gross instability nor mechanical locking of the joint. IJEOMA JIN PA-C [address], [place], [address], [place] [facility] 09/08/2025 15:28:10 OBGyn Episode No OBEpisode recorded.
--- OUTSIDE RECORDS SUMMARY | 2025-10-02 17:10 | XMS_ITS | Encounter Summary ---
Author Organization [facility] Address [address] [facility] [address] [facility] [address] [place] [address] Phone Care Team Providers Care Receiving Distribution Station Operator Name Role Phone Laurie Whitehead NP Primary Care Provider [phone] Lauren Zeng MD Primary Care Provider [phone] Encounter Details Date Type Department Care Team (Late st Contact Info) Description 11/17/2024 Ancillary Orders [address] [place] [address] Sai Rojas MD [address] [place] [address], [address] [place] [address] [email or web address] Breast screening (Primary Dx) Social History Tobacco [...] as of this encounter Plan of Treatment Upcoming Encounters Date Type Department Care Team (Late st Contact Info) Description 08/28/2025 Procedure Pass [address] [place] [address] 05/04/2026 8:30 AM EDT Appointment [address] [place] [address] Lauren Zeng MD [address] [place] [address] documented as of this encounter Results * [...] unspecified documented in this encounter Care Teams Receiving Distribution Station Operator Relationship Specialty Start Date End Date Laurie Whitehead NP [address] [place] [address] 3 [place] [address] PCP - General Family Medicine 06/26/22 08/27/25 Lauren Zeng MD [address] [place] [address] PCP - General Internal Medicine 08/28/25 documented as of this encounter Additional Source Comments The information contained in this document represents components of the legal health record. It is not the complete legal health record.[facility]
--- OUTSIDE RECORDS SUMMARY | 2025-10-02 17:10 | XMS_ITS | Encounter Summary ---
Author Organization [facility] Address [address] [place] [address] Phone Care Team Providers Care Rig Builder Name Role Phone Laurie Whitehead NP Primary Care Provider [phone] Lauren Zeng MD Primary Care Provider [phone] Encounter Details Date Type Department Care Team (Late st Contact Info) Description 06/26/2024 Procedure Pass [facility] - [address] [place] [address] Social History Tobacco Use Types Packs/Day Years [...] st Contact Info) Description 08/28/2025 Procedure Pass [address] [place] [address] 05/04/2026 8:30 AM EDT Appointment [address] [place] [address] Lauren Zeng MD [address] [place] [address] documented as of this encounter Visit Diagnoses Not on filedocumented in this encounter Care Teams Rig Builder Relationship Specialty Start Date End Date Laurie Whitehead NP [address] [place] [address] 3 [place] [address] PCP - General Family Medicine 06/26/22 08/27/25 Lauren Zeng MD [address] [place] [address] PCP - General Internal Medicine 08/28/25 documented as of this encounter Additional Source Comments The information contained in this document represents components of the legal health record. It is not the complete legal health record.[facility]
--- OUTSIDE RECORDS SUMMARY | 2025-10-02 17:10 | XMS_ITS | Clinical Summary ---
Author Organization [facility] Prior to 03/14/[address] [place] [address] Care Team Providers Care Wash Tub Machine Operator Name Role Phone Kaleigh Freed MD Primary Care Provider [phone] Allergies No known active allergies Medications Medication [...] Take 15 mL by mouth. 0 Active [id number]-NaSulf-N a Asc-C (Plenvu) 140 g SOLR 0 [...] age to complete this topic Care Teams Wash Tub Machine Operator Relationship Specialty Start Date End Date Kaleigh Freed MD [facility] [place] [address] PCP - General Internal Medicine 07/29/18
--- OUTSIDE RECORDS SUMMARY | 2025-10-02 17:10 | XMS_ITS | Encounter Summary ---
Author Organization [facility] Address [address] [facility] [address] [place] [address] Phone Care Team Providers Care Client Support Professional Name Role Phone Laurie Whitehead NP Primary Care Provider [phone] Lauren Zeng MD Primary Care Provider [phone] Encounter Details Date Type Department Care Team (Late st Contact Info) Description 11/17/2024 Ancillary Orders [facility] [address] [place] [address] Sai Rojas MD [address] [facility], [address] [place] [address] [email or web address] Breast screening (Primary Dx) Social History [...] st Contact Info) Description 08/28/2025 Procedure Pass [address] [place] [address] 05/04/2026 8:30 AM EDT Appointment [address] [place] [address] Lauren Zeng MD [address] [place] [address] documented as of this encounter Visit Diagnoses Diagnosis Breast screening- Primary Breast screening, unspecified documented in this encounter Care Teams Client Support Professional Relationship Specialty Start Date End Date Laurie Whitehead NP [address] [place] [address] 3 [place] [address] PCP - General Family Medicine 06/26/22 08/27/25 Lauren Zeng MD [address] [place] [address] PCP - General Internal Medicine 08/28/25 documented as of this encounter Additional Source Comments The information contained in this document represents components of the legal health record. It is not the complete legal health record.[facility]
--- OUTSIDE RECORDS SUMMARY | 2025-10-02 17:10 | XMS_ITS | Encounter Summary ---
Author Organization [facility] Address [address] [place] [address] Drive [address] [place] [address] Phone Care Team Providers Care Supervisor Fur Dressing Name Role Phone Will Pineda MD Unavailable [phone] Artur Russell MD Unavailable [phone] Artur Russell MD Primary Care Provider [phone] Unknown, Unknown MD Primary Care Provider Kaleigh Valles MD Primary Care Provider [phone] Laurie Whitehead NP Primary Care Provider [phone] Lauren Zeng MD Primary Care Provider [phone] Encounter Details Date Type Department Care Team (Late Contact Info) Description 09/05/2017 Ancillary Orders [facility] [address] [place] [address] Artur Russell MD [address] [place] [address] Social History Tobacco Use Types Packs/Day Years [...] st Contact Info) Description 08/28/2025 Procedure Pass [address] [place] [address] 05/04/2026 8:30 AM EDT Appointment [address] [place] [address] Lauren Zeng MD [address] [place] [address] documented as of this encounter Visit Diagnoses Not on filedocumented in this encounter Care Teams Supervisor Fur Dressing Relationship Specialty Start Date End Date Artur Russell MD [address] [place] [address] PCP - General 08/02/17 12/30/17 Unknown, Unknown, [address] [place] [address] PCP - General 12/31/17 02/24/18 Kaleigh Frede MD [address] [place] [address] PCP - General Internal Medicine 02/25/18 06/25/22 Laurie Whitehead NP [address] [facility] 3 [place] [address] PCP - General Family Medicine 06/26/22 08/27/25 Lauren Zeng MD [address] [place] [address] PCP - General Internal Medicine 08/28/25 Will Pineda MD [address] [address] Historical LMR Provider 08/01/1710/22/ 2 Artur Russell MD [address] [place] [address] Historical LMR Provider 08/01/17 2 documented as of this encounter Additional Source Comments The information contained in this document represents components of the legal health record. It is not the complete legal health record.[facility]
--- OUTSIDE RECORDS SUMMARY | 2025-10-02 17:11 | XMS_ITS | Encounter Summary ---
Author Organization [facility] Address [address] [place] [address] [place] [address] Phone Care Team Providers Care Urban Redevelopment Specialist Name Role Phone Will Pineda MD Unavailable [phone] Artur Russell MD Unavailable [phone] Kaleigh Freed MD Primary Care Provider [phone] Laurie Whitehead NP Primary Care Provider [phone] Lauren Zeng MD Primary Care Provider [phone] Encounter Details Date Type Department Care Team (Late st Contact Info) Description 04/29/2021 Ancillary Orders Virtual Department [address] [place] [address] Kaleigh Freed MD [facility] [place] [address] Breast screening Social History Tobacco Use Types [...] st Contact Info) Description 08/28/2025 Procedure Pass [address] [place] [address] 05/04/2026 8:30 AM EDT Appointment [address] [place] [address] Lauren Zeng MD [address] [place] [address] documented as of this encounter Results * [...] unspecified documented in this encounter Care Teams Urban Redevelopment Specialist Relationship Specialty Start Date End Date Kaleigh Freed MD [address] [place] [address] PCP - General Internal Medicine 02/25/18 06/25/22 Laurie Whitehead NP [address] [facility] 3 [place] [address] PCP - General Family Medicine 06/26/22 08/27/25 Lauren Zeng MD [address] [place] [address] PCP - General Internal Medicine 08/28/25 Will Pineda MD [address] [address] Historical LMR Provider 08/01/17 2 Artur Russell MD 61 [place] [address] Historical LMR Provider 08/01/17 2 documented as of this encounter Additional Source Comments The information contained in this document represents components of the legal health record. It is not the complete legal health record.[facility]
--- OUTSIDE RECORDS SUMMARY | 2025-10-02 17:11 | XMS_ITS | Encounter Summary ---
Author Organization [facility] Address [facility] [address] [place] [address] Phone Care Team Providers Care Site Coordinator Name Role Phone Will Pineda MD Unavailable [phone] Artur Russell MD Unavailable [phone] Kaleigh Freed MD Primary Care Provider [phone] Laurie Whitehead NP Primary Care Provider [phone] Lauren Zeng MD Primary Care Provider [phone] Encounter Details Date Type Department Care Team (Late st Contact Info) Description 06/16/2020 Procedure Pass [address] [address] Social History Tobacco Use Types Packs/Day Years [...] Encounters Date Type Department Care Team (Late Contact Info) Description 08/28/2025 Procedure Pass [facility] - [address] [place] [address] 05/04/2026 8:30 AM EDT Appointment [address] [place] [address] Lauren Zeng MD [address] [place] [address] documented as of this encounter Visit Diagnoses Not on filedocumented in this encounter Care Teams Site Coordinator Relationship Specialty Start Date End Date Kaleigh Freed MD [address] [place] [address] PCP - General Internal Medicine 02/25/18 06/25/22 Laurie Whitehead NP [address] [facility] 3 [place] [address] PCP - General Family Medicine 06/26/22 08/27/25 Lauren Zeng MD [address] [place] [address] PCP - General Internal Medicine 08/28/25 Will Pineda MD [address] [address] Historical LMR Provider 08/01/17 2 Artur Russell MD [address] [place] [address] Historical LMR Provider 08/01/17 2 documented as of this encounter Additional Source Comments The information contained in this document represents components of the legal health record. It is not the complete legal health record.[facility]
--- OUTSIDE RECORDS SUMMARY | 2025-10-02 17:11 | XMS_ITS | Encounter Summary ---
Author Organization [facility] Address [facility] [address] [place] [address] Phone Care Team Providers Care Photo Specialist Name Role Phone Will Pineda MD Unavailable [phone] Artur Russell MD Unavailable [phone] Artur Russell MD Primary Care Provider [phone] Unknown, Unknown MD Primary Care Provider Kaleigh Valles MD Primary Care Provider [phone] Laurie Whitehead NP Primary Care Provider [phone] Lauren Zeng MD Primary Care Provider [phone] Encounter Details Date Type Department Care Team (Late st Contact Info) Description 08/04/2017 Ancillary Orders [facility] [address] [place] [address] Artur Russell MD 61 [place] [address] Follow-up exam, 3-6 months since previous exam [...] st Contact Info) Description 08/28/2025 Procedure Pass [address] [place] [address] 05/04/2026 8:30 AM EDT Appointment [address] [place] [address] Lauren Zeng MD [address] [place] [address] documented as of this encounter Results * [...] suspicious masses or evidence of architectural distortion. us Artur Russell MD IMG MG EXAMS Final Result documented in this encounter Visit Diagnoses Diagnosis Follow-up exam, 3-6 months since previous exam Unspecified follow-up examination Follow-up exam, 3-6 months since previous exam Unspecified follow-up examination documented in this encounter Care Teams Photo Specialist Relationship Specialty Start Date End Date Artur Russell MD [address] [place] [address] PCP - General 08/02/17 12/30/17 Unknown, Unknown, [address] [place] [address] PCP - General 12/31/17 02/24/18 Kaleigh Freed MD [address]00 [place] [address] PCP - General Internal Medicine 02/25/18 06/25/22 Laurie Whitehead NP [address] [facility] Floor 3 [place] [address] PCP - General Family Medicine 06/26/22 08/27/25 Lauren Zeng MD [address] [place] [address] PCP - General Internal Medicine 08/28/25 Will Pineda MD [address] [address] Historical LMR Provider 08/01/17 2 Artur Russell MD 61 [place] [address] Historical LMR Provider 08/01/1710/22/2 2 documented as of this encounter Additional Source Comments The information contained in this document represents components of the legal health record. It is not the complete legal health record.[facility]
--- OUTSIDE RECORDS SUMMARY | 2025-10-02 17:11 | XMS_ITS | Clinical Summary ---
Author Organization [facility] Address [address] [place] [address] Phone Care Team Providers Care Associate Manager Affiliate Marketing Name Role Phone Lauren Zeng MD Primary Care Provider [phone] Allergies No known active allergies Medications naproxen (NAPROSYN) 250 MG tablet Take 1 tablet by mouth 2 (two) times a day. Active aspirin (ASPIR-81) 81 MG EC tablet Take 81 mg by mouth daily. Active lknlaaki-vqdg-cu rrous gluconat (CENTRUM WITH IRON) 9 mg iron/15 mL Liqd Take 15 mL by mouth daily. Active Ca cit-D3-mag#11-zi yi-mrmt-ndl-bor (CALTRATE 600+D) 600 mg calcium- 800 unit-50 mg Tab Take 1 tablet by mouth daily. Active cyanocobalamin, vitamin B-12, (VITAMIN B-12 ORAL) Take by mouth. Active valACYclovir (VALTREX) 1000 MG tablet 08/27/2020 Active Active Problems Problem Noted Date Diagnosed Date Acute lateral meniscus tear of right knee 2017 Encounters Date Type Department Care Team Description 08/28/2025 Transcribe Orders Virtual Department [address] [place] [address] Lauren Zeng MD Breast screening (Primary Dx) from Last 3 Months Immunizations Immunization Administration Dates Next Due COVID-19 [...] 09/03/2024 8:53 AM EST Plan of Treatment Upcoming Encounters Date Type Department Care Team (Late st Contact Info) Description 08/28/2025 Procedure Pass [address] [place] [address] 05/04/2026 8:30 AM EDT Appointment [address] [place] [address] Lauren Zeng MD [address] [place] [address] Health Maintenance Due Date Last Done Comments [...] Maintenance Insurance MEDICARE PART A & B [facility] MEDICARE SUPPLEMENT MEDICARE PART A & B [facility] MEDICARE SUPPLEMENT MEDICARE PART A & B FOR LIFE MEDICARE SUPPLEMENT MEDICARE PART A & B FOR LIFE MEDICARE SUPPLEMENT MEDICARE PART A & B FOR LIFE MEDICARE SUPPLEMENT [facility] FOR LIFE MEDICARE SUPPLEMENT MEDICARE PART A & B [facility] FOR LIFE MEDICARE SUPPLEMENT MEDICARE PART A & B [facility] FOR LIFE MEDICARE SUPPLEMENT MEDICARE PART A & B FOR LIFE MEDICARE [place] [facility] Address: [facility] [address] [place] [address] Care Teams Associate Manager Affiliate Marketing Relationship Specialty Start Date End Date Lauren Zeng MD [address] [place] [address] PCP - General Internal Medicine 08/28/25 Additional Source Comments The information contained in this document represents components of the legal health record. It is not the complete legal health record.[facility]
--- OUTSIDE RECORDS SUMMARY | 2025-10-02 17:11 | XMS_ITS | Data Portability ---
Author Organization [place] [facility] [place] Address [address] [place] [address] Assessment Encounter Date Assessment Date Assessment LastModified by Organization Details LastModified Time 05/15/2023 05/15/2023 78-year-old female twisting injury with notable degenerative arthritis of the right knee. Since the initial twisting injury a week ago she notes 60% improvement however she is going away to [place] in a week for which she wants [...] and/or textual errors. Not available 11/13/2024 11:29:41 09/08/2025 09/08/2025 80-year-old female with left knee pain. History, examination and x-rays are consistent with advanced osteoarthritis. After discussion regarding treatment options she wishes to proceed with cortisone injection today. Follow-up with me in 3 months. This patient was seen and evaluated by Ijeoma Jin MS, PA-C in direct or indirect conjunction with documenting/supe rvising provider Sampson Sarmiento MD. He was present in the office or available for consultation. He has reviewed and agrees with the history, physical examination, tests/diagnostic imaging, and treatment plan. This document was generated using voice recognition software. As a result, there may be unintended spelling, grammatical and/or textual errors. [email or web address] Not available 09/08/2025 15:27:50 Plan of Treatment Reminders Order Date Submit Date Provider Last Modified By Organization Details Last Modified Time Details Appointments FOLLOW UP 2025 09:15A M IJEOMA JIN PA-C Not available Not available Not available Lab None recorded. Referral None recorded. Procedures None recorded. Surgeries None recorded. Imaging XR, knee, 4 or more view 11/25/ 2025 11/25/2 025 [email or web address] [facility], [address], [place], [address], 09/08/2025 15:27:58 XR, knee, 4 or more view 2024 025 [email or web address], [address], [place], [address], 11/13/2024 11:27:11 XR, knee, 4 or more view 2022 023 [facility], [address], [place], [address], 05/15/2023 15:02:12 Medication Orders Marcaine (PF) 0.5 % (5 mg/mL) injection solution [address]/[facility], [address] [place] [address], [address], 09/08/2025 15:29:54 lidocaine (PF) 100 mg/5 mL (2 %) injection syringe [address]/[facility], [address] [place] [address], [address], 09/08/2025 15:29:54 triamcino lone acetonide 40 mg/mL suspensio n for injection [address]/[facility], [address] [place] [address], [address], 09/08/2025 15:29:54 Marcaine (PF) 0.5 % (5 mg/mL) injection solution [address]/[facility], [address] [place] [address], [address], 11/13/2024 11:27:11 lidocaine (PF) 100 mg/5 mL (2 %) injection syringe 2024 025 [email or web address] [facility]acy #7111, [address] [place], [address], 11/13/2024 11:27:11 triamcino lone acetonide 40 mg/mL suspensio n for injection 2024 025 [email or web address] [facility]acy #7111, [address] [place], [address], 11/13/2024 11:27:11 Kenalog 40 mg/mL suspensio n for injection 2022 023 [email or web address] [facility]armacy #7111, [address] [place], [address], 11/13/2024 11:06:53 lidocaine (PF) 10 mg/mL (1 %) injection solution 2022 023 [email or web address] [facility] #[facility], [address] [place], [address], 11/13/2024 11:06:56 Patient TargetsNo targets recorded. Patient [...] patellofemoral compartment Not available 05/15/2023 13:51:53 11/13/2024 [id number] view X-ray salud dy obtained during [...] Details Recorded Time Injury of right knee 15919307631 360648 Active 2017 Right knee injury Not Available [facility] 5 23:04:09 Acute tear of lateral meniscus of right knee 09096421034 421074 Active 2017 Acute lateral meniscus tear of right knee Not Available [facility] 5 23:04:09 Surgical follow-up 389487362 Active 2017 Postopera tive follow-up Not Available [facility] 5 23:04:10 Arthritis of right knee joint 47585956814 18961 Active 2021 Arthritis of knee, right Not Available [facility] 5 23:04:08 Osteoarth ritis of right knee joint 57379875199 9100 Active 2022 IJEOMA HARRIS PA-C [address], [place], [address] , [place] [facility] 3 12:36:03 Osteoarth ritis of left knee joint 00422871799 9109 Active 2022 IJEOMA HARRIS PA-C [address], [place], [address] , [place] [facility] 3 12:36:07 Problem Notes None recorded. Procedures Surgical History Date Name Laterality Status Provider Name and Address Organization Details Recorded Time 5 MJG Knee injection w/US completed IJEOMA JIN PA-C [address], [place], [address], [place] [facility] 09/08/2025 15:13:07 5 MJG Knee injection w/US completed IJEOMA JIN PA-C [address], [place], [address], [place] [facility] 11/13/2024 11:29:16 3 Knee Joint/Bursa Asp & Inj completed IJEOMA HARRIS PA-C [address], [place], [address], [place] [facility] 05/15/2023 12:33:43 Imaging Results None recorded. [...] Updated DateTime 11/13/2024 165.1 cm 23.1 kg/m2 03763.[address] [place] [facility] 11/13/2024 11:07:30 Date Recorded Body height Body mass index (BMI) Body weight Provider Name and Address Organization Details Last Updated DateTime 05/15/2023 165.1 cm 23.1 kg/m2 46428.[address] [place] [facility] 05/15/2023 15:51:48 Social History None recorded. [...] Blood Transfusion N Emphysema N Hypothyroidism N Depression N COPD N Pacemaker N Vascular Disease N Gastrointestinal [...] ICD10 Code Diagnosis IMO Codes Diagnosis Note [id number] EULALIA RIGGS [facility] 299 [facility] 409 [facility] [address] 05/15/2023 13:07:34 05/15/2023 13:51:24 Pain of right knee joint 1284314166 28801 M25.561 Osteoarthr itis of right knee joint 1082611383 96620 M17.11 [id number] EULALIA SUTTON [facility] 299 [facility] 409 [facility] [address] 11/13/2024 10:49:28 11/13/2024 11:26:25 Osteoarthritis of right knee joint 4402936440 58560 M17.11 [id number] EULALIA SUTTON [place] 113 [facility] [address] [place] [address] 09/08/2025 14:48:09 09/08/2025 15:27:58 Pain of left knee joint 0739161944 54820 M25.562 [id number] Health Concerns Section Related Observation LastModified by Organization Detai ls LastModified Time None Recorded Concern Status LastModified by Organization Details LastModified Time None Recorded Advance Directives Directive None Recorded Payers Insurance Date Sequence Insurance Name Policy Number Policy Montano Covered Member ID Montano Member ID Guarantor Name 02/09/2025 2 FOR LIFE () Roberta Fitzpatrick [id number] Roberta Fitzpatrick 02/09/2025 1 MEDICARE B-[place]: [facility] Roberta Fitzpatrick [id number] Roberta Fitzpatrick Notes Date Note Type Note Provider Name and Address Organization Details Recorded Time 05/15/2023 text/html BL knees. cortisone 10/28/21last x-rays 2 view right knee 10/28/2021 with mild to moderate degenerative joint disease and chondrocalcinosis without acute bony abnormality. Patient states she had updated x-rays at [facility] recently ordered by her primary care however [...] the knee joints. IJEOMA HARRIS PA-C [address] [facility],[address], [place], [address], [place] [facility] 05/15/2023 13:52:59 11/13/2024 text/html 79-year-old female [...] accident or trauma. IJEOMA JIN PA-C [address] [facility],[address], [place], [address], [place] [facility] 11/13/2024 11:31:05 09/08/2025 text/html [id number] female presents for evaluation of left knee [...] locking of the joint. IJEOMA JIN PA-C [address], [place], [address], [place] [facility] 09/08/2025 15:28:10 OBGyn Episode No OBEpisode recorded.
--- OUTSIDE RECORDS SUMMARY | 2025-10-02 17:11 | XMS_ITS | Encounter Summary ---
Author Organization [facility] Address [address] [place] [address] Phone Care Team Providers Care Side Sawyer Name Role Phone Will Pineda MD Unavailable [phone] Artur Russell MD Unavailable [phone] Kaleigh Freed MD Primary Care Provider [phone] Laurie Whitehead NP Primary Care Provider [phone] Lauren Zeng MD Primary Care Provider [phone] Encounter Details Date Type Department Care Team (Late st Contact Info) Description 06/09/[address] [facility] [address] [place] [address] Sai Rojas MD [address] [facility], [address] [place] [address] Breast screening Social History Tobacco Use Types [...] st Contact Info) Description 08/28/2025 Procedure Pass [address] [place] [address] 05/04/2026 8:30 AM EDT Appointment [address] [place] [address] Lauren Zeng MD [address] [place] [address] documented as of this encounter Results * [...] unspecified documented in this encounter Care Teams Side Sawyer Relationship Specialty Start Date End Date Kaleigh Freed MD [address] [place] [address] PCP - General Internal Medicine 02/25/18 06/25/22 Laurie Whitehead NP [address] [facility] Floor 3 [place] [address] PCP - General Family Medicine 06/26/22 08/27/25 Lauren Zeng MD [address] [place] [address] PCP - General Internal Medicine 08/28/25 Will Pineda MD [address] [address] Historical LMR Provider 08/01/17 2 Artur Russell MD [address] [place] [address] Historical LMR Provider 08/01/17 2 documented as of this encounter Additional Source Comments The information contained in this document represents components of the legal health record. It is not the complete legal health record.[facility]
--- OUTSIDE RECORDS SUMMARY | 2025-10-02 17:11 | XMS_ITS | Encounter Summary ---
Author Organization [facility] Address [facility] [address] [place] [address] Phone Care Team Providers Care Sales Operations Coordinator Name Role Phone Laurie Whitehead NP Primary Care Provider [phone] Lauren Zeng MD Primary Care Provider [phone] Encounter Details Date Type Department Care Team (Late st Contact Info) Description 06/26/2022 Procedure Pass [address] [place] [address] Social History Tobacco Use Types Packs/Day Years [...] st Contact Info) Description 08/28/2025 Procedure Pass [address] [place] [address] 05/04/2026 8:30 AM EDT Appointment [address] [place] [address] Lauren Zeng MD [address] [place] [address] documented as of this encounter Visit Diagnoses Not on filedocumented in this encounter Care Teams Sales Operations Coordinator Relationship Specialty Start Date End Date Laurie Whitehead NP [address] [facility] 3 [place] [address] PCP - General Family Medicine 06/26/22 08/27/25 Lauren Zeng MD [address] [place] [address] PCP - General Internal Medicine 08/28/25 documented as of this encounter Additional Source Comments The information contained in this document represents components of the legal health record. It is not the complete legal health record.[facility]
--- OUTSIDE RECORDS SUMMARY | 2025-10-02 17:11 | XMS_ITS | Encounter Summary ---
Author Organization [facility] Address [address] [place] [address] Phone Care Team Providers Care Brake Tester Name Role Phone Laurie Whitehead NP Primary Care Provider [phone] Lauren Zeng MD Primary Care Provider [phone] Encounter Details Date Type Department Care Team (Late st Contact Info) Description 06/21/2023 Procedure Pass [facility] - [address] [place] [address] Social History Tobacco Use Types Packs/Day Years [...] st Contact Info) Description 08/28/2025 Procedure Pass [address] [place] [address] 05/04/2026 8:30 AM EDT Appointment [address] [place] [address] Lauren Zeng MD [address] [place] [address] documented as of this encounter Visit Diagnoses Not on filedocumented in this encounter Care Teams Brake Tester Relationship Specialty Start Date End Date Laurie Whitehead NP [address] [place] [address] 3 [place] [address] PCP - General Family Medicine 06/26/22 08/27/25 Lauren Zeng MD [address] [place] [address] PCP - General Internal Medicine 08/28/25 documented as of this encounter Additional Source Comments The information contained in this document represents components of the legal health record. It is not the complete legal health record.[facility]
--- OUTSIDE RECORDS SUMMARY | 2025-10-02 17:11 | XMS_ITS | Encounter Summary ---
Author Organization [facility] Address [facility] [address] [place] [address] Phone Care Team Providers Care Grinder Mill Operator Name Role Phone Will Pineda MD Unavailable [phone] Artur Russell MD Unavailable [phone] Kaleigh Freed MD Primary Care Provider [phone] Laurie Whitehead NP Primary Care Provider [phone] Lauren Zeng MD Primary Care Provider [phone] Encounter Details Date Type Department Care Team (Late st Contact Info) Description 04/29/2021 Procedure Pass [address] [address] Social History Tobacco Use Types Packs/Day Years [...] st Contact Info) Description 08/28/2025 Procedure Pass [facility] - [address] [place] [address] 05/04/2026 8:30 AM EDT Appointment [address] [place] [address] Lauren Zeng MD [address] [place] [address] documented as of this encounter Visit Diagnoses Not on filedocumented in this encounter Care Teams Grinder Mill Operator Relationship Specialty Start Date End Date Kaleigh Freed MD [address] [place] [address] PCP - General Internal Medicine 02/25/18 06/25/22 Laurie Whitehead NP 46 [facility] 3 [place] [address] PCP - General Family Medicine 06/26/22 08/27/25 Lauren Zeng MD [address] [place] [address] PCP - General Internal Medicine 08/28/25 Will Pineda MD [address] [address] Historical LMR Provider 08/01/17 2 Artur Russell MD [address] [place] [address] Historical LMR Provider 08/01/17 2 documented as of this encounter Additional Source Comments The information contained in this document represents components of the legal health record. It is not the complete legal health record.[facility]
--- OUTSIDE RECORDS SUMMARY | 2025-10-02 17:11 | XMS_ITS | Encounter Summary ---
Author Organization [facility] Address [address] [place] [address] Drive [address] [place] [address] Phone Care Team Providers Care Bedspring Assembler Name Role Phone Will Pineda MD Unavailable [phone] Artur Russell MD Unavailable [phone] Artur Russell MD Primary Care Provider [phone] Unknown, Unknown MD Primary Care Provider Kaeligh Valles MD Primary Care Provider [phone] Laurie Whitehead NP Primary Care Provider [phone] Lauren Zeng MD Primary Care Provider [phone] Encounter Details Date Type Department Care Team (Late st Contact Info) Description 08/04/2017 Ancillary Orders [facility] Ob[facility]etrics [facility] Gynecology Clinic [address] [place] [address] Artur Russell MD [address] [place], [place] [address] Abnormal findings on diagnostic imaging of breast [...] st Contact Info) Description 08/28/2025 Procedure Pass [address] [place] [address] 05/04/2026 8:30 AM EDT Appointment [address] [place] [address] Lauren Zeng MD [address] [place] [address] documented as of this encounter Visit Diagnoses Diagnosis Abnormal findings on diagnostic imaging of breast Other (abnormal) findings on radiological examination of breast documented in this encounter Care Teams Bedspring Assembler Relationship Specialty Start Date End Date Artur Russell MD [address] [place] [address] PCP - General 08/02/17 12/30/17 Unknown, [place], [address] [place] [address] PCP - General 12/31/17 02/24/18 Kaleigh Freed MD [address] [place] [address] PCP - General Internal Medicine 02/25/18 06/25/22 Laurie Whitehead NP 46 [facility] Floor 3 [place] [address] PCP - General Family Medicine 06/26/22 08/27/25 Lauren Zeng MD [address] [place] [address] PCP - General Internal Medicine 08/28/25 Will Pineda MD [address] [address] Historical LMR Provider 08/01/17 2 Artur Russell MD [address] [place] [address] Historical LMR Provider 08/01/17 2 documented as of this encounter Additional Source Comments The information contained in this document represents components of the legal health record. It is not the complete legal health record.[facility]
--- OUTSIDE RECORDS SUMMARY | 2025-10-02 17:11 | XMS_ITS | Patient Health Record ---
Author Organization [facility] Address [address] [place] [address] Care Team Providers Care Cord Cutter Name Role Phone Josue Mckeon N.P. Primary Care Provider Bucky Churchill Unavailable [phone] Diana Gaspar Unavailable Unavailable Allergies No Known Allergies Reason For Referral No Information Medications Medication SIG (Take, Route, Frequency, Duration) Notes Start Date End Date Status Famotidine 40 MG Tablet 1 tablet Orally Twice a day for reflux; Duration: 90 days 04/28/2025 Unknown Calcium 500-2.5 MG-MCG Tablet Chewable 1 tablet with a meal Orally Once a day; Duration: 30 day(s) 04/28/2025 Unknown Multi Vitamin - Tablet 1 tablet Orally O nce a day; Duration: 30 day(s) 04/28/2025 Unknown Vitamin B-12 100 MCG Tablet as directed Orally 04/28/2025 Unknown Omeprazole 20 MG Capsule Delayed Release 1 capsule 1/2 to 1 hour before morning meal Orally Once a day; Duration: 30 day(s) 04/28/2025 Unknown Aspirin 81 MG Tablet Chewable 1 tablet Orally Once a day; Duration: 30 day(s) 04/28/2025 Unknown Immunizations Vaccine Route Administration Date Status Comme nts Influenza Unknown 08/05/2024 Administered Social History Tobacco Use: Social History Observation Description Date Details (start date - stop date) Never Smoker NA - NA Social History Drug/Alcohol: Social Info Question Answer Notes AUDIT-C (Standard) Did you have a drink containing alcohol in the past year? 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 Problem Type SNOMED Code ICD Code Onset Dates Problem Status W/U Status Risk Notes Problem Gastroesophageal reflux disease (759225827) GERD (gastroesophag eal reflux disease) (K21.9) Active confirmed Problem History of adenomatous polyp of colon (352787494) History of adenomatous polyp of colon (Z86.0101) Active confirmed Vital Signs Temperature 97.5 degrees Fahrenheit 04/28/2025 Blood pressure diastolic 01 mm Hg 04/28/2025 Height 65 in 04/28/2025 Blood pressure systolic 001 mm Hg 04/28/2025 Weight 151.2 lbs 04/28/2025 BMI 25.16 kg/m2 04/28/2025 Encounters Encounter Location Date Provider Diagnosis [facility] [address] [place] [address] 04/28/2025 Bucky Cali GERD (gastroesophage al reflux disease) K21.9 and History of adenomatous polyp of colon Z86.0101 [facility] [address] [place] [address] 04/28/2025 Bucky Cali Assessments Encounter Date Diagnosis (ICD Code) Assessment [...] Date MEDICARE OF [place] [address] [place] [address] [phone] [id number] ROBERTA ROBERTS Self - patient is the insured 1 [employer] [address] [place] [address] [id number] ROBERTA KIRBY Self - patient is the insured 1 Medical (General) History Medical History History ICD Code Thrombocytosis--Followed by Dr. Gaspar Denies OR,DM,CVA,Lung disease,renal dise ase Colon polyps--most recent co lonoscopy was in [address] Shelby; negative colonoscopies in 2000 and 2010 Surgical History Surgery Date(Month/Year) 1985 Right knee 2018 Trigger finger release 2017,2018, 2024 Gastrocnemius surgery for the Left achil les 2022 Carpal tunnel bilaterally
== END 2025-10-02 17:08 | disposition home or self-care (01) ==
LOC: HO.LNP 17:07
PROVIDERS: Visit Provider Student in an Organized Health Care Education/Training Program
DX: R12 Heartburn (principal)
CPT/HCPCS: 87338